=== PATIENT | female | born 1930 | race Caucasian/White ===

== ENCOUNTER 2018-01-27 16:35 | Inpatient (IN) | payer OTHER ==
[~2018-01-27] VITALS: Ht 149.9 cm; Wt 76.9 kg
[~2018-01-27 16:35] MED LIST: ANTIVERT 12.512.5 MG PO; ASPIRIN EC325 MG PO; CARDIZEM CD120 MG PO; CIPROFLOXACIN500 MG PO; COZAAR 50MG TAB50 MG PO; DULCOLAX5 MG PO; ENSURE1 PDR PO; FERROUS SULFAT325 M1 PO; FLAG500 PO; FOLIC ACID 1 MG PO; GOOD SENSE ASP325 MG PO; IMDUR30 MG PO; LEVOBUNOLOL HCL OPH; LOPRESSOR 12.12.5 MG PO; LOPRESSOR 25MG25 MG PO; LOSARTAN POTAS100 MG PO; LUMIGAN 2.5 ML2.5 M1 OPH; METHOTREXATE2.5 M1 PO; MSIR PO; MULTI VITAMINS1 TAB PO; NAPROXEN375 MG PO; NITROSTAT0.4 MG PO; PARAFON FORTE500 MG PO; PREDNISONE 1 MG1 MG PO; PROCARDIA XL30 MG PO; PROSTAT PO; STOOL SOFTENER PO; VITAMIN D1000 IU PO; WELCHOL 625 MG625 MG PO; WOMEN'S DAILY F1 TAB PO; [UNRECOGNIZED DRUG - OTHER] PO
[2018-01-27 17:17] LABS: ABSOLUTE BASOPHIL COUNT 0.1 /CUMM (0.0-0.2); ABSOLUTE EOSINOPHIL COUNT 0.1 /CUMM (0.0-0.7); ABSOLUTE GRANULOCYTE CT 6.7 /CUMM (1.4-6.5); ABSOLUTE LYMPH COUNT 1.6 /CUMM (1.2-3.4); ABSOLUTE MONOCYTE COUNT 0.8 /CUMM (0.10-0.60); BASOPHIL % 0.7 % (0.0-2.0); EOSINOPHIL % 0.6 % (0-5); GRANULOCYTE % 72.4 % (42.2-75.2); MEAN CORPUSCULAR HGB CONC 33.6 G/DL (33.0-37.0); MEAN CORPUSCULAR VOLUME 92.4 FL (81.0-99.0); MEAN PLATELET VOLUME 7.8 FL (7.4-10.4); PLATELET COUNT 336 /CUMM (130-400); RBC DISTRIBUTION WIDTH 13.9 % (11.5-14.5); RED BLOOD CELL CT 4.55 /CUMM (4.20-5.40); WHITE BLOOD CELL COUNT 9.3 /CUMM (4.8-10.8)
[2018-01-27 17:22] LABS: PT 11.2 SEC (9.4-12.5); PTT 29 SEC (25-37)
--- NOTE | 2018-01-27 17:39 | RADIOLOGY REPORT ---
EXAMINATION: CHEST 1 VIEW CLINICAL INFORMATION: Atrial fibrillation. COMPARISON: 06/23/2015. TECHNIQUE: An AP view of the chest is provided. FINDINGS: The cardiac silhouette is prominent, though stable. The mediastinal and hilar contours are unremarkable. There are neither pleural effusions nor pneumothoraces. There are no consolidations. The osseous structures are stable. IMPRESSION: No evidence for acute disease. Stable chest radiograph.
--- NOTE | 2018-01-27 17:43 | ED CARDIAC/CP/PALPITATIONS ---
History of Present Illness General Chief Complaint: General Adult Stated Complaint: SIB DR CHOUDHURY ABD EKG Source: patient, family Exam Limitations: no limitations Allergies Coded Allergies: STATINS (Severe, RASH, HIVES 12/22/12) Penicillins (UNKNOWN 05/21/17) Sulfa (Sulfonamide Antibiotics) (UNKNOWN 05/21/17) adhesive tape (UNKNOWN 05/21/17) red dye (UNKNOWN 05/21/17) Reconcile Medications Aspirin (Aspirin*) 81 MG TAB.CHEW 1 TAB PO DAILY heart (Reported) Aspirin E.c. (Ecotrin) 325 MG TAB 81 MG PO DAILY HEART Bimatoprost (Lumigan 2.5 Ml) 2.5 ML DELMI 1 GTT OPH QPM GLAUCOMA (Reported) 0.5% Bisacodyl (Women's Laxative) 5 MG TABLET 2 TAB PO DAILY CONSTIPATION ( Reported) Bisacodyl (Dulcolax) 5 MG ECT 3 TAB PO DAILY CONSTIPATION (Reported) Casanthranol/Docusate Sodium (Stool Softener Plus Stimulant Laxative 30 MG-) 1 SGL SGL 3 TAB PO DAILY STOOL SOFTENER (Reported) Chlorzoxazone 500 MG TABLET 0.5 TAB PO TID muscle spasm (Reported) Chlorzoxazone (Parafon Forte Dsc) 500 MG TAB 1 TAB PO MUSCLE RELAXER ( Reported) Cholecalciferol (Vitamin D3) 1,000 IU TAB 1 TAB PO DAILY SUPPLEMENT (Reported ) Cholecalciferol (Vitamin D3) 1,000 UNIT TABLET 2 TAB PO DAILY SUPPLEMENT ( Reported) CIPROFLOXACIN HCL (Ciprofloxacin HCl) 500 MG TAB 500 MG PO BID INFECTION Colesevelam HCl (Welchol) 3.75 GRAM POWD.PACK 2 PAC PO DAILY HLD (Reported) mix with water, or juice Colesevelam Hydrochloride (Welchol) 625 MG TAB 1 TAB PO TID DIABETES ( Reported) Diltiazem HCl (Cartia Xt) 120 MG CAP.ER.24H 180 MG PO DAILY heart (Reported) Docusate Sodium (Stool Softener) 50 MG/5 ML LIQUID 50 MG PO DAILY CONSTIPATION (Reported) Ferrous Sulfate 325 MG TAB 325 MG PO BID SUPPLEMENT Fish Oil (The Very Finest Fish Oil [place]-3) 1,600 MG/5 ML OIL 1 CAP PO DIALY SUPPLEMENT (Reported) Folic Acid 1 MG TAB 1 TAB PO DAILY SUPPLEMENT (Reported) Folic Acid 1 MG TABLET 1 TAB PO DAILY SUPPLEMENT (Reported) Isosorbide Mononitrate (Imdur) [address] 120 MG PO DAILY ANGINA (Reported) Isosorbide Mononitrate (Isosorbide Mononitrate ER) 120 MG TAB.ER.24H 1 TAB PO DAILY Heart (Reported) LACTOSE-REDUCED FOOD (Ensure Powder) 1 PDR PDR 1 PAC PO DAILY SUPPLEMENT Lactulose 10 GRAM/15 ML SOLUTION 30 ML PO BID PRN CONSTIPATION (Reported) Latanoprost 0.005 % DROPS 1 GTT OPH QPM GLAUCOMA (Reported) LEVOBUNOLOL HCL (Levobunolol HCl 10 Ml) 10 ML DELMI 1 GTT OPH DAILY GLAUCOMA ( Reported) 0.5% DOSE Levobunolol HCl (Betagan) 0.5 % DROPS 1 DROP OPH QAM GLAUCOMA (Reported) Losartan (Cozaar) 100 MG TABLET 1 TAB PO DAILY HTN (Reported) Losartan (Cozaar) 50 MG TAB 1 TAB PO DAILY BLOOD PRESSURE Meclizine (Antivert) 12.5 MG TAB 2 TAB PO PRN NAUSEA (Reported) Meclizine HCl 25 MG TABLET 1 TAB PO TIDPRN VERTIGO (Reported) METHOTREXATE SODIUM (Methotrexate) 2.5 MG TAB PSORIASIS ARTHRITIS (Reported) UNKNOWN DOSE, 3 TABS Metoprolol Succ XL (Toprol Xl) 50 MG TAB 1 TAB PO DAILY HTN (Reported) Metoprolol Tartrate (Lopressor) 25 MG TAB 1 TAB PO BID BLOOD PRESSURE, HEART RATE Metronidazole (Flagyl) 500 MG TAB 500 MG PO TID Ischemic colitis [MSIR] 7.5 MG PO BID PRN PAIN SCALE 7-10 Multivitamin (One Daily Multivitamin) 1 TAB TAB 1 TAB PO DAILY SUPPLEMENT ( Reported) COMPLETE SENIOR VITAMIN Nifedipine (Procardia XL) [address] 30 MG PO DAILY HEART, ESOPHAGEAL DYSMOTILITY Nitroglycerin (Nitrostat) 0.4 MG TAB.SUBL 1 TAB SL AD PRN ANGINA (Reported) 1st sign of attack; may repeat every 5 minutes until relief; if pain persists after 3 tablets in 15 minutes, prompt medical att Nitroglycerin (Nitrostat) 0.4 MG TAB 1 TAB PO PRN PRN CHEST PAIN (Reported) Polyethylene Glycol 3350 (Miralax) 17 GRAM POWD.PACK 1 PAC PO DAILY CONSTIPATION (Reported) dissolve in water Prednisone 1 MG TAB 1 TAB PO TID ARTHRITIS (Reported) Prednisone 1 MG TABLET 3 TAB PO DAILY RA (Reported) Ranitidine (Ranitidine HCl) 150 MG TABLET 1 TAB PO BID GERD (Reported) Sennosides (Senna) 8.6 MG TABLET 2 TAB PO BID CONSTIPATION (Reported) Triage Note: 88 YO FEMALE TO [facility] FROM [facility] OFF[facility] FOR EVAL OF ABNORMAL EKG. PT REPORTS SHE WAS THERE FOR A CHECK UP AND "HE LISTENED TO MY HEART AND SAID IT WAS GOING FAST" DENIES PALPITATIONS, DENIES CHEST PAIN. REPORTS SHE HAS BEEN FEELING WEAK THIS PAST WEEK AND FEELS A LITTLE SHAKEY. EKG IN PROGRESS. Triage Nurses Notes Reviewed? yes Onset: Gradual Duration: week(s): Timing: recent history Quality/Severity: moderate HPI: 88yo female with hx of CAD, HTN, COPD, DM sent in by her primary care doctor for evaluation of rapid heart beat. Patient states that she saw her primary care doctor for routine checkup today and was informed of her rapid heartbeat and physical exam. Patient states that for the past 3 weeks she has felt generalized weakness, shakiness, and malaise. She also reports abdominal distention which she states has been chronic however may have worsened recently. Patient denies chest pain, dyspnea, syncope, fevers. (Tram AGUILERA,Mirna Cárdenas) Vital Signs & Intake/Output Vital Signs & Intake/Output Vital Signs Date Time Temp Pulse Resp B/P B/P Pulse O2 O2 Flow FiO2 Mean Ox Delivery Rate 01/27 2121 97.9 108 18 138/72 96 Room Air 01/27 1838 98.2 135 20 112/79 97 Room Air Room Air 01/27 183 98.5 135 20 121/85 01/27 1735 98 Room Air Room Air 01/27 1734 98.5 135 20 121/85 97 Room Air Room Air 01/27 1646 98.1 129 18 135/87 95 Room Air (Mallory FOX,Josh Nur) Past History Travel History Traveled to [place] past 21 day No Medical History Any Pertinent Medical History? 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 FATHER, , Age 76; Cause: Bone cancer. Hx Contributory? No (Mirna Love) Review of Systems Review of Systems Constitutional: Reports: see HPI. EENTM: Reports: no symptoms. Respiratory: Reports: no symptoms. Cardiovascular: Reports: see HPI. GI: Reports: see HPI. Genitourinary: Reports: no symptoms. Musculoskeletal: Reports: no symptoms. Skin: Reports: no symptoms. Neurological/Psychological: Reports: no symptoms. Hematologic/Endocrine: Reports: no symptoms. Immunologic/Allergic: Reports: no symptoms. All Other Systems: Reviewed and Negative (Mirna Love) Physical Exam Physical Exam General Appearance: well developed/nourished, no apparent distress, alert, awake Head: atraumatic, normal appearance Eyes: Bilateral: normal appearance. Ears, Nose, Throat: hearing grossly normal Neck: normal inspection, supple, full range of motion Respiratory: normal breath sounds, no respiratory distress, lungs clear Cardiovascular: tachycardia, irregularly irregular Peripheral Pulses: 2+ radial (R), 2+ radial (L) Gastrointestinal: normal bowel sounds, no organomegaly, moderate distention with mild generalized tenderness Rectal: heme negative stool, external hemorrhoids Back: normal inspection, normal range of motion Extremities: normal inspection Neurologic/Psych: awake, alert, oriented x 3 Skin: intact, normal color, warm/dry Core Measures ACS in differential dx? Yes CVA/TIA Diagnosis No Sepsis Present: No Sepsis Focused Exam Completed? No (Mirna Love) Progress Differential Diagnosis: AMI, atrial fibrillation, CHF/pulm edema, hyperkalemia, PSVT, pulmonary embolism, unstable angina Diagnostic Imaging: Viewed by Me: Radiology Read. Discussed w/RAD: Radiology Read. CXR Impression: PATIENT: WILFREDO CABRERA PRESENT AGE : 88 PATIENT ACCOUNT NO: [id number] : [birth year] LOCATION: ER ORDERING PHYSICIAN: Stanley AGUILERA SERVICE DATE: 01/27/18 EXAM TYPE: RAD - XRY-PORTABLE CHEST XRAY EXAMINATION: CHEST 1 VIEW CLINICAL INFORMATION: Atrial fibrillation. COMPARISON: 06/23/2015. TECHNIQUE: An AP view of the chest is provided. FINDINGS: The cardiac silhouette is prominent, though stable. The mediastinal and hilar contours are unremarkable. There are neither pleural effusions nor pneumothoraces. There are no consolidations. The osseous structures are stable. IMPRESSION: No evidence for acute disease. Stable chest radiograph. DICTATED BY: Jesus Velasco MD DATE/TIME DICTATED:01/27/181732 STANDARD MACHINE STITCHER:IVY DATE/TIME TRANSCRIBED:01/27/181732 CONFIDENTIAL, DO NOT COPY WITHOUT APPROPRIATE AUTHORIZATION. <Electronically signed in Other Vendor System> SIGNED BY: Jesus Velasco MD 01/27/181738 Initial ED EKG: rapid atrial fibrillation @ 145bpm Prior EKG: changed (06/29/15) (Tram AGUILERA,Mirna Cárdenas) Plan of Care: Orders Procedure Date/time Status Heart Healthy Diet 01/28 B Active PT Evaluate & Treat 01/28 0700 Active ECHOCARDIOGRAM 01/28 0700 Active TROPONIN LEVEL 01/28 0500 Active CBC WITHOUT DIFFERENTIAL 01/28 0500 Active EKG 01/28 0500 Active Clear Liquid Diet 01/27 D Complete TROPONIN LEVEL 01/27 2300 Active EKG 01/27 2300 Active Pathway - chart 01/27 2154 Active Code Status 01/27 215 Active ECHOCARDIOGRAM 01/27 2148 Active Patient Data 01/27 2054 Active Patient Data 01/27 2034 Active Add-on Test (ER Only) 01/28 2008 Active Admit to inpatient 01/27 2002 Active Intake & Output 01/27 1734 Active MAGNESIUM 01/27 1700 Complete THYROID STIMULATING HORMONE 01/27 1654 Complete TROPONIN LEVEL 01/27 1654 Complete PARTIAL THROMBOPLASTIN TIME 01/27 1654 Complete PROTHROMBIN TIME 01/27 1654 Complete COMPREHENSIVE METABOLIC PANEL 01/27 1654 Complete CBC WITHOUT DIFFERENTIAL 01/27 1654 Complete EKG 01/27 1638 Active PT Evaluate & Treat 01/27 UNK Active Pathway - chart 01/27 UNK Active House Staff 01/27 UNK Active VTE Mechanical Prophylaxis 01/27 UNK Active Vital Signs 01/[address] THOR SPINE WO IV CONTRAST 01/[address] ABD & PELVIS W IV CONTRAST 01/27 UNK Active Current Medications Sig/Lb Start time Last Medication Dose Stop Time Status Admin Latanoprost 1 GTT QPM 01/28 2100 AC (Xalatan) Aspirin 81 MG DAILY 01/28 900 AC (Aspirin) Bisacodyl 10 MG DAILY 01/28 900 UNVr (Dulcolax) Cholecalciferol 2,000 IU DAILY 01/28 900 UNVr (Vitamin D) Colesevelam HCl 625 MG DAILY 01/28 900 AC (Welchol 625 MG) Diltiazem HCl 180 MG DAILY 01/28 900 AC (Cardizem CD) Docusate Sodium 50 MG DAILY 01/28 900 AC (Colace) Folic Acid 1 MG DAILY 01/28 900 AC (Folic Acid) Isosorbide 120 MG DAILY 01/28 900 AC Mononitrate (Imdur) Levobunolol HCl 1 GTT QAM 01/28 900 UNVr (Betagan) Losartan Potassium 100 MG DAILY 01/28 900 AC (Cozaar) Metoprolol Succinate 50 MG DAILY 01/28 900 AC (Toprol Xl) Polyethylene Glycol 17 GM DAILY 01/28 900 AC (Miralax) Prednisone 3 MG DAILY 01/28 900 AC Meclizine HCl 25 MG TID PRN 01/27 2230 AC (Antivert) Nitroglycerin 0.4 MG .[AD] PRN 01/27 2230 UNVr (Nitrostat) Senna/Docusate Sodium 1 TAB BID PRN 01/27 2230 AC (Senokot S) Lactulose 30 GM TID PRN 01/27 2215 AC (Enulose 20GM/30ML) Non-Formulary 0 SEE ADMIN CRITERIA 01/27 2215 UNVr Medication (NON FORMULARY) Verapamil HCl 50 MG Q10H 01/27 2200 AC (Calan) Sodium Chloride 80 ML (Normal Saline 0.9%) Pantoprazole Sodium 40 MG BID 01/28 2148 AC (Protonix) Heparin Sodium 25,000 UNIT Q24H 01/27 2100 AC (Porcine) (Heparin) Sodium Chloride 500 ML Laboratory Tests 01/27/18 1700: Anion Gap 8, Estimated GFR > 60, BUN/Creatinine Ratio 21.3, Glucose 145 H, Calcium 9.1, Magnesium 1.5 L, Total Bilirubin 0.5, AST 33, ALT 41, Alkaline Phosphatase 83, Troponin I 0.02, Total Protein 6.6, Albumin 3.6, Globulin 3.0, Albumin/Globulin Ratio 1.2, TSH 0.913, PT 11.2, INR 1.03, APTT 29, CBC w Diff NO MAN DIFF REQ, RBC 4.55, MCV 92.4, MCH 31.0, MCHC 33.6, RDW 13.9, MPV 7.8, Gran % 72.4, Lymphocytes % 17.7 L, Monocytes % 8.6, Eosinophils % 0.6, Basophils % 0.7 , Absolute Granulocytes 6.7 H, Absolute Lymphocytes 1.6, Absolute Monocytes 0.8 H, Absolute Eosinophils 0.1, Absolute Basophils 0.1 Dr. Tejada present to see and evaluate the patient. Cardizem is not available at this time. Will initiate lopressor instead. 1806 - Spoke with Dr. Choudhury regarding this patient. He recommends waiting 20-30 minutes following lopressor. If this is not effective he recommends Verapimil 2.5mg bolus with drip that can be titrated. He will consult the patient tomorrow. Patient to be admitted to telemetry for rapid atrial fibrillation. Dr. Tejada spoke with Dr. Abraham regarding ICU admission. Dr. Choudhury recommends IV heparinization. (Tram AGUILERA,Mirna Cárdenas) Comments: 01/27/2018 8:03:00 PM I have discussed diuresis case with Dr. Abraham. (Mallory FOX,Josh Nur) Departure Departure Disposition: STILL A PATIENT Condition: Stable Clinical Impression Primary Impression: Rapid atrial fibrillation Referrals: Raul Braun MD (PCP/Family) Departure Forms: Customer Survey General Discharge Information Admission Note Spoke With: Shawn FOX,Greta Documentation of Exam: Documentation of any treatments & extenuating circumstances including Concerns Regarding Discharge (functional status, medication knowledge or non-compliance, living conditions, etc.) that warrant an admission rather than observation: [new onset rapid atrial fibrillation requiring IV cardiac rate control, IV heparin, telemetry monitoring, cardiology consult, repeat labs, repeat EKGs, premature discharge medically unsafe] (Mirna Love) PA/OPERATIONS ENGINEER Co-Sign Statement Statement: ED Attending supervision documentation- [X] I saw and evaluated the patient. I have also reviewed all the pertinent lab results and diagnostic results. I agree with the findings and the plan of care as documented in the PA's/OPERATIONS ENGINEER's documentation. Patient presents for evaluation of generalized weakness and heart palpitations for the past 2-3 weeks. Physical examination reveals a rapid irregular heart rate. [] I have reviewed the ED Record and agree with the PA's/OPERATIONS ENGINEER's documentation. [] Additions or exceptions (if any) to the PAs/OPERATIONS ENGINEER's note and plan are summarized below: [] (Mallory FOX,Josh Nur) Critical Care Note Critical Care Note Critical Care Time: 30-74 min (Josh Tejada MD)
--- NOTE | 2018-01-27 20:08 | History & Physical ---
Nirav Pike MD 01/27/182007: General Information and HPI History of Present Illness: Ms. Gonzales is an 88-year-old female with past medical history of glaucoma, psoriatic arthritis, coronary artery disease, hypertension, hyperlipidemia, bladder suspension procedure, osteoporosis, diabetes mellitus, COPD, Mnire's disease, duodenal ulcers, and HFpEF who was sent in by her doctor for tachycardia. Please note the patient is a poor historian. The patient says that she was at her primary care doctor's office today for regular follow-up when he noticed that her heart rate was high. The primary care doctor called Dr. Cr and recommended taking an EKG. EKG showed atrial fibrillation with rapid ventricular rate and she was instructed to come to the emergency room for further evaluation. The patient notes that she has had palpitations about once every 2 weeks for the past 3 months. She has not noticed any association with the palpitations. She further notes that she has had left-sided chest pain about once every 2 weeks as well relieved by nitro mostly occurring at rest. She further reports chronic back pain, abdominal distention, nausea, black stools intermittently, and potentially also using NSAIDs despite being told not to. She says that she can walk across a parking lot and up 1 flight of stairs before getting tired. She denies any dysuria or vomiting. She is a former smoker and denies alcohol or drug use. Allergies/Medications Allergies: Coded Allergies: STATINS (Severe, RASH, HIVES 12/22/12) Penicillins (UNKNOWN 05/21/17) Sulfa (Sulfonamide Antibiotics) (UNKNOWN 05/21/17) adhesive tape (UNKNOWN 05/21/17) red dye (UNKNOWN 05/21/17) Past History Travel History Traveled to [place] past 21 day No Medical History Neurological: Meniere's EENT: glaucoma, PSORIASIS Cardiovascular: CAD, hypertension, HYPERCHOLESTEROLEMIA Respiratory: COPD Gastrointestinal: HEMORRHOIDS Hepatic: NONE Renal: BLADDER SUSPENTION Musculoskeletal: osteoporosis, L WRIST FX OSTEOPOROSIS PSORIATIC ARTHRITIS Psychiatric: NONE Endocrine: diabetes Blood Disorders: NONE Cancer(s): NONE 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 FATHER, , Age 76; Cause: Bone cancer. Psychosocial History Who Do You Live With? self Services at Home: None Primary Language: Italian Living Will? unknown Power of Supervisor Stitching Department/HCP? unknown Functional Ability ADLs Independent: dressing, eating, toileting, bathing. Ambulation: independent IADLs Needs Assist: housework, food prep, telephone, transportation. Unknown: shopping, finances, medication admin. Review of Systems Review of Systems Constitutional: Reports: no symptoms. EENTM: Reports: no symptoms. Cardiovascular: Reports: see HPI. Respiratory: Reports: no symptoms. GI: Reports: see HPI. Genitourinary: Reports: no symptoms. Musculoskeletal: Reports: no symptoms. Skin: Reports: no symptoms. Neurological/Psychological: Reports: no symptoms. Hematologic/Endocrine: Reports: no symptoms. Immunologic/Allergic: Reports: no symptoms. All Other Systems: Reviewed and Negative Exam & Diagnostic Data Last 24 Hrs of Vital Signs/I&O Vital Signs Date Time Temp Pulse Resp B/P B/P Pulse O2 O2 Flow FiO2 Mean Ox Delivery Rate 01/271 97.9 108 18 138/72 96 Room Air 01/27 1838 98.2 135 20 112/79 97 Room Air Room Air 01/27 1837 98.5 135 20 121/85 01/27 1735 98 Room Air Room Air 01/27 1734 98.5 135 20 121/85 97 Room Air Room Air 01/27 1646 98.1 129 18 135/87 95 Room Air Physical Exam General Appearance Alert, Oriented X3, Cooperative, No Acute Distress Skin No Rashes, No Breakdown, No Significant Lesion HEENT Atraumatic, PERRLA, EOMI Cardiovascular tachy, irregularly irregular Lungs exp wheezing Abdomen distended with diffuse tenderness Neurological Normal Speech Extremities No Edema, Normal Pulses, No Tenderness/Swelling Last 24 Hrs of Labs/Juan: Laboratory Tests 01/27/18 1700: Anion Gap 8, Estimated GFR > 60, BUN/Creatinine Ratio 21.3, Glucose 145 H, Calcium 9.1, Magnesium 1.5 L, Total Bilirubin 0.5, AST 33, ALT 41, Alkaline Phosphatase 83, Troponin I 0.02, Total Protein 6.6, Albumin 3.6, Globulin 3.0, Albumin/Globulin Ratio 1.2, TSH 0.913, PT 11.2, INR 1.03, APTT 29, CBC w Diff NO MAN DIFF REQ, RBC 4.55, MCV 92.4, MCH 31.0, MCHC 33.6, RDW 13.9, MPV 7.8, Gran % 72.4, Lymphocytes % 17.7 L, Monocytes % 8.6, Eosinophils % 0.6, Basophils % 0.7 , Absolute Granulocytes 6.7 H, Absolute Lymphocytes 1.6, Absolute Monocytes 0.8 H, Absolute Eosinophils 0.1, Absolute Basophils 0.1 Assessment/Plan Assessment: Ms. Gonzales is an 88-year-old female with past medical history of glaucoma, psoriatic arthritis, coronary artery disease, hypertension, hyperlipidemia, bladder suspension procedure, osteoporosis, diabetes mellitus, COPD, Mnire's disease, duodenal ulcers, and HFpEF who was sent in by her doctor for tachycardia. On presentation, vital signs were T 98.1, HR 129, RR 18, BP 135/87, saturating 95% on room air. Laboratories were significant for normal CVC, sodium 134, glucose 145, negative LFTs. Chest x-ray was negative. Initial EKG showed rapid atrial fibrillation at 145bpm. She will be admitted to the intensive care unit and treated for the following problems: 1. Atrial fibrillation with rapid ventricular rate 2. Abdominal distention 3. Mild hyponatremia 4. Back pain #Atrial fibrillation with rapid ventricular rate: Patient presents with asymptomatic atrial fibrillation with rapid ventricular rate. BRODIE-VASC2 score is 7, 11.2% annual risk of stroke. We spoke to Dr. Cr and Dr. Pierre, both of whom are recommending anticoagulation at this time despite her history of GI bleed. -Start IV heparin -Verapamil drip -Cardiology consult -EKG and troponins 3 -TTE #Abdominal distention: Patient has abdominal distention with history of mesenteric ischemia and duodenal ulcers. She is followed by Dr. [place]. She has tenderness on exam and questionable history of melena. However her hemoglobin is normal and her guaiac was negative. It is possible that she is having recurrence of ischemia versus ileus versus SBO. -CT abdomen/pelvis with IV contrast -Clear liquid diet, n.p.o. after midnight -PPI -Gastroenterology consult #Back pain: Patient complaining of chronic back pain. She does have a history of osteoporosis. -CT thoracic spine -Cyclobenzaprine -physical therapy consult #Mild hyponatremia: Asymptomatic -IVF -CTM #Chronic medical problems: -Continue other home meds DVT ppx with heparin Heart healthy diet DNR/DNI As Ranked By This Provider Problem List: 1. Rapid atrial fibrillation Core Measures/Misc (05/18) Acute Coronary Syndrome ACS Diagnosis: No Congestive Heart Failure Congestive Heart Failure Diagnosis Yes Last Known EF % 65 Cerebrovascular Accident CVA/TIA Diagnosis: No VTE (View Protocol) VTE Risk Factors Age>40 No Mechanical VTE Prophylaxis d/t N/A MechProphylax Ordered No VTE Pharm Prophylaxis d/t NA PharmProphylax ordered Sepsis (View protocol) Sepsis Present: No If YES complete Sepsis Event Note If YES complete Sepsis Event Note Scottie Still 01/27/18 9034: General Information and HPI Allergies/Medications Home Med list Aspirin (Aspirin*) 81 MG TAB.CHEW 1 TAB PO DAILY heart (Reported) Bisacodyl (Women's Laxative) 5 MG TABLET 2 TAB PO DAILY CONSTIPATION ( Reported) Chlorzoxazone 500 MG TABLET 0.5 TAB PO TID muscle spasm (Reported) Cholecalciferol (Vitamin D3) 1,000 UNIT TABLET 2 TAB PO DAILY SUPPLEMENT ( Reported) Colesevelam HCl (Welchol) 3.75 GRAM POWD.PACK 2 PAC PO DAILY HLD (Reported) mix with water, or juice Diltiazem HCl (Cartia Xt) 120 MG CAP.ER.24H 180 MG PO DAILY heart (Reported) Docusate Sodium (Stool Softener) 50 MG/5 ML LIQUID 50 MG PO DAILY CONSTIPATION (Reported) Folic Acid 1 MG TABLET 1 TAB PO DAILY SUPPLEMENT (Reported) Isosorbide Mononitrate (Isosorbide Mononitrate ER) 120 MG TAB.ER.24H 1 TAB PO DAILY Heart (Reported) Lactulose 10 GRAM/15 ML SOLUTION 30 ML PO BID PRN CONSTIPATION (Reported) Latanoprost 0.005 % DROPS 1 GTT OPH QPM GLAUCOMA (Reported) Levobunolol HCl (Betagan) 0.5 % DROPS 1 DROP OPH QAM GLAUCOMA (Reported) Linagliptin (Tradjenta) 5 MG TABLET 1 TAB PO DAILY diabetes (Reported) Losartan (Cozaar) 100 MG TABLET 1 TAB PO DAILY HTN (Reported) Meclizine HCl 25 MG TABLET 1 TAB PO TIDPRN VERTIGO (Reported) Methotrexate 2.5 MG TABLET 3 TAB PO QW RA (Reported) Patient takes medication on Friday Metoprolol Succ XL (Toprol Xl) 50 MG TAB 1 TAB PO DAILY HTN (Reported) [MSIR] 7.5 MG PO BID PRN PAIN SCALE 7-10 Nitroglycerin (Nitrostat) 0.4 MG TAB.SUBL 1 TAB SL AD PRN ANGINA (Reported) 1st sign of attack; may repeat every 5 minutes until relief; if pain persists after 3 tablets in 15 minutes, prompt medical att Polyethylene Glycol 3350 (Miralax) 17 GRAM POWD.PACK 1 PAC PO DAILY CONSTIPATION (Reported) dissolve in water Prednisone 1 MG TABLET 3 TAB PO DAILY RA (Reported) Ranitidine (Ranitidine HCl) 150 MG TABLET 1 TAB PO BID GERD (Reported) Sennosides (Senna) 8.6 MG TABLET 2 TAB PO BID CONSTIPATION (Reported) Core Measures/Misc (05/18) Sepsis (View protocol) If YES complete Sepsis Event Note If YES complete Sepsis Event Note Resident Review Statement Resident Statement: examined this patient, discussed with transportation logistics internship, agreed with transportation logistics internship, discussed with family, reviewed EMR data (avail), reviewed images, amended to note Other Findings: Patient is 88-year-old female with past medical history of diabetes, coronary artery disease, COPD not on home oxygen, hypertension, rheumatoid arthritis, M nire's disease, psoriasis, hiatal hernia, glaucoma, abdominal adhehesion, hypercholesterolemia, hemorrhoids, status post 3 C-sections, status post hysterectomy, admitted last in Jun 2015 for mesenteric ischemia and GI bleeding, extensive upper GI Hx off NSAIDS due to bleeding but sometimes patient takes behind the curtain. She was referred in today by her processing clerk Dr. Cr after she was found to have atrial fibrillation during a routine visit to her primary care physician. Upon further questioning the patient reports that she has been having on and off palpitations for the past 3 months not very frequently occurring once every 2 weeks associated with shortness of breath and chest pain for which she has been taking her nitroglycerin with improvement. She is not sure if exertion tend to bring the palpitations as sometimes she gets it even without any exertion. On presentation to her PCP today she reports to be totally asymptomatic without any palpitation shortness of breath or chest pain. Patient at baseline has distended abdomen however she reports that for the past few weeks her abdominal distention has increased further to a degree that she had to cut her pants because were squeezing her too much. Patient reports history of dark stools and sometimes bright red blood per rectum she is known to have hemorrhoids and has severe constipation on multiple laxatives however continues to have bowel motion once every 3-4 days, sometimes the patient tries to force herself to have bowel movement sitting for a long time in the bathroom and while doing that she reports to see blood sometimes. This patient has chronic back pain apparently she reports to has collapse of her vertebra for many years she was on NSAIDs which she reports to work very well however they were stopped because of GI bleeding. Currently she is not following up with her pain specialist but also volunteers that opiates make her very sick. She has not recently experienced any incontinence or lower limb weakness or other acute neurological manifestations. On presentation the patient was tachycardic heart rate of 129 afebrile at 98.1 respiration of 18 blood pressure 135/87 and was saturating 95% on room air Physical examination: Patient seated comfortably on the bed not in any acute distress wincing whenever she moves around due to back pain daughter and granddaughter in the room she is a alert and oriented to time place and person very pleasant lady articulating herself very clearly without any challenges. She has an old bruise on the left upper limb just above the elbow anteriorly. CVS: Irregularly irregular normal S1-S2 no murmurs Chest: Clear lungs bilaterally Abdomen: Globally distended moving with respiration, no rebound tenderness but there is generalized tenderness more prominent on the left hypochondrium and left iliac region. Due to tenderness with could not appreciate fluid thrill however there was no masses palpable on superficial palpation. normal bowel sounds Extremities no edema, cyanosis or clubbing Labs: Negative troponin 0.02, normal H&H H&H 14.1 and 42.0, INR of 1.04, guaiac test is negative EKG: Atrial fibrillation with normal axis no ST-T wave changes QTC of 485 Imaging: CT abdominal pelvis with IV contrast: 0.8 cm hyperattenuating lesion in the left lobe of the liver. Prior MRI was not tailored to evaluate this area. Prior CTs without contrast demonstrate this finding. Assessment and plan This is an 88 years old lady with past medical history of hypertension coronary artery disease, GI bleeding in the past who is presenting with new onset atrial fibrillation but which has been there for the past 3 months intermittently at least once every 2 weeks she is also having abdominal distention which has been there for a while but recently increasing in size significantly. This patient has [id number] VASC score of 6 (due to being female with hypertension and diabetes mellitus vascular disease and about 75 years) with risk of stroke of 9.8% per year. Given that she had negative guaiac we discussed with GI and agreed to start the patient on heparin with close monitoring of CBC. Problem list A. fib with rapid RVR Abdominal distention History of GI bleeding Chronic back pain Hypertension Rheumatoid arthritis We will admit the patient to the intensive care unit Vital signs every one hour Start the patient on IV verapamil drip and titrate for heart rate control Troponin and EKG 3 sets Echocardiogram Check TSH and a free T4 Abdominal pelvic CT scan with IV contrast Thoracic spine CT scan Physical therapy evaluation We'll keep the patient on IV atenolol for moderate to severe back pain Continue home medication for rheumatoid arthritis methotrexate and prednisone Hypertension meds: Metoprolol XL 50 mg, Diltiazem 180 mg, losartan 100 mg Continue home dose of laxatives: MiraLAX, senna, Dulcolax and lactulose when necessary Patient is getting heparin drip that will also cover for DVT She is DNI/DNR Shawn FOX, [facility] 01/28/18 0002: Core Measures/Misc (05/18) Sepsis (View protocol) If YES complete Sepsis Event Note If YES complete Sepsis Event Note Attending MD Review Statement Attending Statement Attending MD Statement: examined this patient, discuss w/resident/PA/DIRECTOR OF BANDS, agreed w/resident/PA/DIRECTOR OF BANDS, discussed with family, reviewed images, amended to note Attending Assessment/Plan: 88 yo F with h/o T2DM, CAD, spinal stenosis, COPD, psoriatic arthritis on methotrexate and prednisone, last admitted to [facility] (2014) diagnosed with chronic mesenteric ischemia and upper GI bleed with EGD s/o clean based duodenal ulcers, is sent in by Dr. Cr for an abnormal EKG. Patient was at her PCP visit today, was noted to be tachycardic. EKG was done which showed Afib. Patient was sent to Dr. Cr's office from where she came to the ER. Patient reports having intermittent palpitations over past 3 weeks. She also has substernal chest discomfort that resolves with nitro. Patient has been overdue for a stress test. On further questioning, patient reports that her abdomen has been increasingly distended and she has been having intermittent dark stools. She also has hemorrhoids and has noted BRBPR. She remains constipated and tends to strain causing hemorrhoidal bleeds. She also has chronic back pain from spinal stenosis , and tends to use full dose aspirin to help with the pain. She was taking naproxen many years ago but not anymore. She also reports recurrent heartburn for which she uses tums. Patient follows with Dr. 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 Patient was advised to follow up with Vascular but she has not. Upon ER arrival, she was noted to be in rapid Afib, given IV metoprolol without effect. Verapamil drip and IV heparin was started. Vitals: afebrile, HR 100-135, BP 140/86, sats 94% RA. Exam: AAO, in no distress, mucosa dry, Neck supple, Chest b/l clear, Heart S1S2 irregularly irregular, systolic murmur+, Abd soft, distended, BS+, left sided tenderness on exam. LE no edema. Rectal exam: heme negative. Labs: CBC normal. Na 134, glucose 145, Mag 1.5, LFTs normal, trop negative. CXR: no acute disease. CT abd/pelvis and thoracic spine no acute abnormality, 0.8 cm hyperattenuating lesion in left lobe of liver noted in previous CT. Spine no acute fractures. EKG: Afib with ventricular rate of 140's. Echo (2015): EF 65%, stage 2 diastolic dysfunction. Assessment and plan: 1. New onset atrial fibrillation with rapid ventricular response 2. History of CAD 3. Chronic mesenteric ischemia 4. Abdominal distension, heartburn and melena 5. Recurrent heartburn 6. History of upper GI bleed 7. Psoriatic arthritis on chronic prednisone - Admit to ICU - Vitals Q 1 hour - IV verapamil drip to titrate based on HR - IV heparin initiated after discussion with cardiology given high CHADVASc score - We also discussed with GI about need for IV heparin, given risk vs benefit AC was initiated - Serial EKG and troponin - Obtain echocardiogram - Check TSH, free T4 - Cardio consult Dr. Cr - CRCU consult - CT abd/pelvis is unremarkable - Serial abdomen exam - Continue PPI and clear liquid diet - Gentle hydration - Type and crossmatch - CBC twice daily while on heparin - Watch for bleeding or anemia - GI consult - probable outpatient EGD and colonoscopy, also to comment on the liver lesion - Pain management - PT eval - Check vit D levels - Continue cardizem, metoprolol, prednisone, losartan. - Diabetes management DVT ppx IV heparin. DNR/I. TTS > 55 mins
[2018-01-27] MEDS ORDERED: ASPIRIN81 M4 PO (20:31)
[2018-01-27] MEDS ORDERED: DILTIAZEM 24HR180 MG PO (20:32)
[2018-01-27] MEDS ORDERED: TOPROL XL50 M1 PO (20:33)
[2018-01-27] MEDS ORDERED: COZAAR100 M1 PO (20:33)
[2018-01-27] MEDS ORDERED: ISOSORBIDE MON120 M1 PO (20:34)
[2018-01-27] MEDS ORDERED: WELCHOL3.75 GM PO (20:36)
--- NOTE | 2018-01-27 21:31 | Admission Certification ---
Admission Certification Certification Statement - As attending physician, I certify that at the time of - admission, based on clinical presentation, severity of - symptoms, need for further diagnostic testing and - therapeutic interventions, and risk of adverse outcomes - without in-hospital treatment, in my clinical assessment, - this patient requires an acute hospital stay for a minimum - of two nights or longer. I have also considered psychsocial - factors such as support system, advanced age, financial - issues, cognitive issues, and failed out-patient treatments, - past re-admission history, safety of patient, and lack of - compliance as applicable. Specific rationale supporting this admission is: New onset atrial fibrillation
[2018-01-27] MEDS ORDERED: PREDNISONE1 MG PO (21:56)
[2018-01-27] MEDS ORDERED: RANITIDINE HCL150 MG PO (21:57)
[2018-01-27] MEDS ORDERED: SENNA8.6 M3 PO (21:57)
[2018-01-27] MEDS ORDERED: FOLIC ACID1 M1 PO (21:57)
[2018-01-27] MEDS ORDERED: VITAMIN D31000 UNI2 PO (21:58)
[2018-01-27] MEDS ORDERED: MIRALAX17 G1 PO (21:58)
[2018-01-27] MEDS ORDERED: STOOL SOFT50 MG/5 ML PO (21:59)
[2018-01-27] MEDS ORDERED: WOMEN'S LAXATIVE5 M1 PO (22:00)
[2018-01-27] MEDS ORDERED: BETAGAN10 ML OPH (22:01)
[2018-01-27] MEDS ORDERED: LATANOPROST2.5 ML OPH (22:02)
[2018-01-27] MEDS ORDERED: MECLIZINE HCL25 MG PO (22:03)
[2018-01-27] MEDS ORDERED: NITROSTAT0.4 M1 SL (22:05)
[2018-01-27] MEDS ORDERED: CHLORZOXAZONE500 M1 PO (22:05)
[2018-01-27] MEDS ORDERED: LACTULOSE10 GM/153 PO (22:06)
[2018-01-27] MEDS ORDERED: METHOTREXATE2.5 M2 PO (23:13)
--- NOTE | 2018-01-27 23:16 | CT SCAN REPORT ---
EXAMINATION: CT ABDOMEN AND PELVIS WITH CONTRAST CT THORACIC SPINE WITHOUT CONTRAST CLINICAL INFORMATION: Abdominal pain. Back pain. COMPARISON: Multiple priors, most recently 07/24/2016. TECHNIQUE: Multidetector volumetric imaging of the thoracic spine was initially performed without IV contrast. Multidetector volumetric imaging was then performed of the abdomen and pelvis following IV administration of 94 mL of Optiray 320 intravenous contrast. Sagittal and coronal reformatted images were obtained on the technologist's workstation. DLP: 1348 mGy-cm FINDINGS: LUNG BASES: There is subsegmental atelectasis at the lung bases. The remaining visualized portion of the lungs on the thoracic spine CT demonstrates minimal opacity in the right perihilar upper lobe. Bronchial wall thickening noted. The visualized cardiac structures are unremarkable. LIVER, GALLBLADDER, AND BILIARY TREE: The liver is normal in size, shape, and attenuation. There is a 0.8 cm hyperattenuating lesion in segment 2 of the liver. No additional hepatic lesion or biliary ductal dilatation is present. The gallbladder is unremarkable with no evidence of radiopaque gallstones, gallbladder wall thickening, or obvious pericholecystic inflammatory changes. PANCREAS: The pancreas is atrophic. Calcifications are present in the pancreatic parenchyma with irregular ductal dilatation. The appearance is suggestive of chronic pancreatitis. SPLEEN: Unremarkable. ADRENAL GLANDS: Unremarkable. KIDNEYS AND URETERS: The left kidney is somewhat atrophic. Bilateral renal cortical thinning. There are multiple hypoattenuating lesions seen in both kidneys. No hydronephrosis or nephrolithiasis. BLADDER: Unremarkable. GASTROINTESTINAL TRACT: The stomach is decompressed with no gross abnormality. The small bowel is normal in caliber. There is no obstruction. No colonic wall thickening or inflammatory change. Colonic diverticulosis noted without evidence of diverticulitis. No free air or free fluid. ABDOMINAL WALL: No significant hernia is appreciated. LYMPH NODES: Normal. VASCULAR: There is ectatic infrarenal abdominal aorta, measuring up to 2.5 cm AP. Moderate upper scrota calcifications are seen throughout the vasculature. PELVIC VISCERA: The uterus is not seen. No adnexal mass. OSSEOUS STRUCTURES: Bilateral L5 pars defects are present with grade 2 anterolisthesis of L5 on S1. This is unchanged. There is a compression deformity of the L4 vertebral body which is also unchanged. Multilevel endplate osteophytes with facet arthropathy. Multilevel vacuum disc phenomenon. Chronic left superior and inferior pubic rami fractures are again noted. Alignment at the hips is maintained with mild degenerative changes present. THORACIC SPINE: Dedicated thoracic spine acquisition demonstrates no acute fracture or subluxation. Vertebral body height and alignment is maintained. The disc spaces are maintained. There are multilevel small endplate osteophytes with lateral bridging on the right noted at the lower thoracic spine. There is no bony narrowing of the spinal canal. There is no bony neuroforaminal narrowing. Healed posterior left 11th rib fracture noted. IMPRESSION: 1. No acute finding in the abdomen or pelvis. No inflammatory changes. 2. 0.8 cm hyperattenuating lesion in the left lobe of the liver. Prior MRI was not tailored to evaluate this area. Prior CTs without contrast demonstrate this finding. Prior contrast-enhanced CT is not available for comparison at this time. 3. No acute fracture or malalignment in the thoracic spine. Mild multilevel degenerative change. 4. Ectatic infrarenal abdominal aorta, unchanged.
[2018-01-28 01:30] VITALS: BP 140/86
[2018-01-28 06:33] LABS: ABSOLUTE BASOPHIL COUNT 0.1 /CUMM (0.0-0.2); ABSOLUTE EOSINOPHIL COUNT 0.1 /CUMM (0.0-0.7); ABSOLUTE GRANULOCYTE CT 4.7 /CUMM (1.4-6.5); ABSOLUTE MONOCYTE COUNT 0.8 /CUMM (0.10-0.60); BASOPHIL % 0.7 % (0.0-2.0); EOSINOPHIL % 1.2 % (0-5); GRANULOCYTE % 61.3 % (42.2-75.2); HEMATOCRIT 42.7 % (37-47); MEAN CORPUSCULAR HGB 31.1 PG (27.0-31.0); MEAN CORPUSCULAR HGB CONC 33.1 G/DL (33.0-37.0); MEAN PLATELET VOLUME 7.7 FL (7.4-10.4); PLATELET COUNT 281 /CUMM (130-400); RBC DISTRIBUTION WIDTH 13.6 % (11.5-14.5); RED BLOOD CELL CT 4.54 /CUMM (4.20-5.40); WHITE BLOOD CELL COUNT 7.7 /CUMM (4.8-10.8)
[2018-01-28 06:51] LABS: PTT > 120 SEC (25-37)
[2018-01-28 08:00] VITALS: BP 150/70
--- NOTE | 2018-01-28 08:03 | Cons- CRCU ---
Acosta OFX,[facility] 01/28/18 0803: General Information and HPI Consulting Request Date of Consult: 01/28/18 Requested By: Primary team History of Present Illness: 88-year-old female with past medical history of glaucoma, psoriatic arthritis, coronary artery disease, hypertension, hyperlipidemia, bladder suspension procedure, osteoporosis, diabetes mellitus, COPD, Mnire's disease, duodenal ulcers, and HFpEF who was sent in by her doctor for tachycardia. The patient says that she was at her primary care doctor's office today for regular follow- up when he noticed that her heart rate was high. The primary care doctor called Dr. Cr and recommended taking an EKG. EKG showed atrial fibrillation with rapid ventricular rate and she was instructed to come to the emergency room for further evaluation. Allergies/Medications Allergies: Coded Allergies: STATINS (Severe, RASH, HIVES 12/22/12) Penicillins (UNKNOWN 05/21/17) Sulfa (Sulfonamide Antibiotics) (UNKNOWN 05/21/17) adhesive tape (UNKNOWN 05/21/17) red dye (UNKNOWN 05/21/17) Home Med List: Aspirin (Aspirin*) 81 MG TAB.CHEW 1 TAB PO DAILY heart (Reported) Bisacodyl (Women's Laxative) 5 MG TABLET 2 TAB PO DAILY CONSTIPATION ( Reported) Chlorzoxazone 500 MG TABLET 0.5 TAB PO TID muscle spasm (Reported) Cholecalciferol (Vitamin D3) 1,000 UNIT TABLET 2 TAB PO DAILY SUPPLEMENT ( Reported) Colesevelam HCl (Welchol) 3.75 GRAM POWD.PACK 2 PAC PO DAILY HLD (Reported) mix with water, or juice Diltiazem HCl (Cartia Xt) 120 MG CAP.ER.24H 180 MG PO DAILY heart (Reported) Docusate Sodium (Stool Softener) 50 MG/5 ML LIQUID 50 MG PO DAILY CONSTIPATION (Reported) Folic Acid 1 MG TABLET 1 TAB PO DAILY SUPPLEMENT (Reported) Isosorbide Mononitrate (Isosorbide Mononitrate ER) 120 MG TAB.ER.24H 1 TAB PO DAILY Heart (Reported) Lactulose 10 GRAM/15 ML SOLUTION 30 ML PO BID PRN CONSTIPATION (Reported) Latanoprost 0.005 % DROPS 1 GTT OPH QPM GLAUCOMA (Reported) Levobunolol HCl (Betagan) 0.5 % DROPS 1 DROP OPH QAM GLAUCOMA (Reported) Linagliptin (Tradjenta) 5 MG TABLET 1 TAB PO DAILY diabetes (Reported) Losartan (Cozaar) 100 MG TABLET 1 TAB PO DAILY HTN (Reported) Meclizine HCl 25 MG TABLET 1 TAB PO TIDPRN VERTIGO (Reported) Methotrexate 2.5 MG TABLET 3 TAB PO QW RA (Reported) Patient takes medication on Friday Metoprolol Succ XL (Toprol Xl) 50 MG TAB 1 TAB PO DAILY HTN (Reported) [MSIR] 7.5 MG PO BID PRN PAIN SCALE 7-10 Nitroglycerin (Nitrostat) 0.4 MG TAB.SUBL 1 TAB SL AD PRN ANGINA (Reported) 1st sign of attack; may repeat every 5 minutes until relief; if pain persists after 3 tablets in 15 minutes, prompt medical att Polyethylene Glycol 3350 (Miralax) 17 GRAM POWD.PACK 1 PAC PO DAILY CONSTIPATION (Reported) dissolve in water Prednisone 1 MG TABLET 3 TAB PO DAILY RA (Reported) Ranitidine (Ranitidine HCl) 150 MG TABLET 1 TAB PO BID GERD (Reported) Sennosides (Senna) 8.6 MG TABLET 2 TAB PO BID CONSTIPATION (Reported) Review of Systems Review of Systems Constitutional: Reports: see HPI. Past History Travel History Traveled to [place] past 21 day No Medical History Blood Transfusion Hx: Yes Neurological: Meniere's EENT: glaucoma, PSORIASIS Cardiovascular: CAD, hypertension, HYPERCHOLESTEROLEMIA Respiratory: COPD Gastrointestinal: HEMORRHOIDS ISCHEMIC BOWEL Hepatic: NONE Renal: BLADDER SUSPENTION Musculoskeletal: osteoporosis, L WRIST FX OSTEOPOROSIS PSORIATIC ARTHRITIS Psychiatric: NONE Endocrine: diabetes Blood Disorders: NONE Cancer(s): NONE MUSIC INTERNSHIP/Reproductive: WOMB SUSPENSION TUBAL LIGATION PARTIAL HYSTERECTOMY 3 C SECTIONS Surgical History Surgical History: , hysterectomy, tubal ligation Family History Relations & Conditions If Any: MOTHER, , Age 43; Cause: Myocardial infarct. FATHER, , Age 76; Cause: Bone cancer. Psychosocial History Where Do You Live? Home Who Do You Live With? self Services at Home: None Primary Language: Senegalese Smoking Status: Former Smoker Living Will? unknown Power of Drain Layer/HCP? unknown Functional Ability ADLs Independent: dressing, eating, toileting, bathing. Ambulation: independent IADLs Needs Assist: housework, food prep, telephone, transportation. Unknown: shopping, finances, medication admin. Exam & Diagnostic Data Last 24 Hrs of Vital Signs/I&O Vital Signs Date Time Temp Pulse Resp B/P B/P Pulse O2 O2 Flow FiO2 Mean Ox Delivery Rate 01/28 1035 150/70 01/28 1034 83 150/70 01/28 1034 150/70 01/28 0800 98 Room Air 01/28 0800 98.9 80 20 150/70 95 Room Air 01/28 0400 95 Room Air 01/28 0130 97.8 107 18 140/86 94 Room Air 01/28 0130 94 Room Air 01/27 2355 97.9 126 20 149/89 01/27 2355 97.9 126 20 149/89 01/27 2347 97.5 113 18 127/81 97 Room Air Room Air 01/27 2121 97.9 108 18 138/72 96 Room Air 01/27 1838 98.2 135 20 112/79 97 Room Air Room Air 01/27 1837 98.5 135 20 121/85 01/27 1735 98 Room Air Room Air 01/27 1734 98.5 135 20 121/85 97 Room Air Room Air 01/27 1646 98.1 129 18 135/87 95 Room Air Intake & Output 01/28 1600 01/28 0800 01/28 0000 Intake Total 726 Output Total 150 Balance 576 Intake, IV 726 Output, Urine 150 Patient 158 lb 150 lb Weight Weight Bed scale Reported by Patient Measurement Method Physical Exam General Appearance: no apparent distress, alert, awake Respiratory: normal breath sounds Cardiovascular: regular rate/rhythm, patient has converted to sinus rhythm Gastrointestinal: abdominal distention with normal bowel sounds. Diffuse abdominal pain to palpation. Extremities: 2+ radial pulses. Last 48 Hrs of Labs/Juan: Laboratory Tests 01/28/18 0545: Troponin I 0.02 01/28/18 0545: Anion Gap 9, Estimated GFR > 60, Glucose 139 H, Calcium 8.3 L, Phosphorus 3.0, Magnesium 2.5 H, Total Bilirubin 0.4, AST 27, ALT 41, Albumin 3.5, APTT > 120 * H, CBC w Diff NO MAN DIFF REQ, RBC 4.54, MCV 94.0, MCH 31.1 H, MCHC 33.1, RDW 13.6, MPV 7.7, Gran % 61.3, Lymphocytes % 26.4, Monocytes % 10.4 H, Eosinophils % 1.2, Basophils % 0.7, Absolute Granulocytes 4.7, Absolute Lymphocytes 2.0, Absolute Monocytes 0.8 H, Absolute Eosinophils 0.1, Absolute Basophils 0.1 01/28/18 0000: Troponin I 0.02 01/28/18 0000: Alpha Fetoprotein Pending 01/27/18 1700: Anion Gap 8, Estimated GFR > 60, BUN/Creatinine Ratio 21.3, Glucose 145 H, Calcium 9.1, Magnesium 1.5 L, Total Bilirubin 0.5, AST 33, ALT 41, Alkaline Phosphatase 83, Troponin I 0.02, Total Protein 6.6, Albumin 3.6, Globulin 3.0, Albumin/Globulin Ratio 1.2, TSH 0.913, PT 11.2, INR 1.03, APTT 29, CBC w Diff NO MAN DIFF REQ, RBC 4.55, MCV 92.4, MCH 31.0, MCHC 33.6, RDW 13.9, MPV 7.8, Gran % 72.4, Lymphocytes % 17.7 L, Monocytes % 8.6, Eosinophils % 0.6, Basophils % 0.7 , Absolute Granulocytes 6.7 H, Absolute Lymphocytes 1.6, Absolute Monocytes 0.8 H, Absolute Eosinophils 0.1, Absolute Basophils 0.1 Assessment/Plan CRCU Impression/Plan: A: 88-year-old female with past medical history of glaucoma, psoriatic arthritis, coronary artery disease, hypertension, hyperlipidemia, bladder suspension procedure, osteoporosis, diabetes mellitus, COPD, Mnire's disease, duodenal ulcers, GI bleed and HFpEF who was sent in by her doctor for tachycardia found to have new onset A. fib. P: #Atrial fibrillation with rapid ventricular rate: Initial EKG showed rapid atrial fibrillation at 145bpm. BRODIE-VASC2 score is 7, 11.2% annual risk of stroke. Cardiology recommended anticoagulation despite her history she had bleed and duodenal ulcers. Troponins 0.0 2X3. -Continue IV heparin -Verapamil drip stopped as heart rate was well controlled and patient returned to sinus rhythm -Continue by mouth diltiazem -Cardiology consult -TTE #Abdominal distention with a history of ?mesenteric ischemia Previous MRI revaeled celiac and SMA with approximately 50% luminal narrowing. It is unlikely that this is her pain is due to crohnic mesenteric ischemia. However it is possible that she may have acute mesenteric ischemia given her new onset afib however this is also unlikely. Her abd pain is more likely due to pseudo obstruction given the crohnic nature and absence non-critial occlusion of vessels. Current CT abdomen with IV contrast revealed no acute findings or thoracic spinal fractures. KUB negative for pneumoperitoneum. B12, TSH normal. Free t4 elevated. -will repeat folate tomorrow AM -The patient was advanced from nothing by mouth to clear liquid diet to regular diet -f/u Gastroenterology consult #Back pain Patient complaining of chronic back pain. She does have a history of osteoporosis. CT thoracic spine was negative for any acute cause. -cont cyclobenzaprine -physical therapy consult #Mild hyponatremia - resolved Initial sodium 134 Current 139 Mild hyponatremia resolved with IV fluids #Abnormal CT findings 1) 0.8 cm hyperattenuating lesion in the left lobe of the liver found on prior CTs. 2 Ectatic infrarenal abdominal aorta, unchanged. -outpatient monitoring #Chronic medical problems: Glaucoma, psoriatic arthritis, coronary artery disease, hypertension, hyperlipidemia, bladder suspension procedure, osteoporosis, diabetes mellitus, COPD, Mnire's disease, duodenal ulcers, GI bleed and HFpEF -Continue methotrexate, prednisone, vitamin D, colesevelam, metoprolol, losartan , levobunolol, latanoprost, imudur, nitroglycerin, folic acid, aspirin, meclizine, Colace, MiraLAX, senna, Dulcolax, lactulose -patient states she does want to take linagliptin any longer -will hold metformin and start novolog sliding scale DVT ppx with heparin Heart healthy diet DNR/DNI Problem List: 1. Rapid atrial fibrillation 2. Mesenteric ischemia Consult Acknowledgment - Thank you for your consult request. Kathe FOX,[facility] 01/28/18 7985: Assessment/Plan CRCU Other Findings/Comments: Seen and examined independently Full history as noted above Physical Exam General Appearance Alert, Oriented X3, Cooperative, No Acute Distress Skin No Rashes, No Breakdown, No Significant Lesion HEENT Atraumatic, PERRLA, EOMI Cardiovascular tachy, irregularly irregular Lungs exp wheezing Abdomen distended with diffuse tenderness Neurological Normal Speech Extremities No Edema, Normal Pulses, No Tenderness/Swelling Ms. Gonzales is an 88-year-old female with past medical history of glaucoma, psoriatic arthritis, coronary artery disease, hypertension, hyperlipidemia, bladder suspension procedure, osteoporosis, diabetes mellitus, COPD, Mnire's disease, duodenal ulcers, and HFpEF who was sent in by her doctor for tachycardia. Issues include New-onset atrial fibrillation with increased ventricular response. Patient is stable. Now he is here for verapamil infusion Abdominal distention yesterday now status post 2 bowel movements which seems to be much better per patient. Patient has had significant vascular disease in the abdominal arteries. No evidence of bowel ischemia at this time. She also does have a stable infrarenal aortic aneurysm. CT abdomen done unremarkable. Hypokalemia needs replacement History of psoriatic arthritis, on methotrexate and low-dose prednisone hence immunosuppressed Previous history of smoking, mild COPD, bladder neck suspension, no evidence of infection Prior history of GI bleed now on anticoagulation Chronic low back pain now stable RECOMMENDATION Continue rate control therapy Continue anticoagulation Abdominal discomfort seems to be better can advance diet Replace potassium Change to by mouth medications for rate control Out of bed to chair Continue bowel regimen Continue low-dose prednisone Watch blood pressure and she is on multiple medications Can be transferred to telemetry once she is better tts 36 mins Consult Acknowledgment - Thank you for your consult request.
--- NOTE | 2018-01-28 10:28 | Cons- Gastroenterology ---
General Information and HPI Consulting Request Date of Consult: 01/28/18 Requested By: Shawn FOX,Greta Reason for Consult: 1. Open 8 mm hypoattenuating liver lesion 2. Chronic use NSAIDs 3. Reported history of melena Source of Information: electronic medical record Exam Limitations: poor historian History of Present Illness: Ms. Gonzales is an 88 year old female with a Past Medical History of with past medical history of glaucoma, psoriatic arthritis for which she takes MTx, coronary artery disease, hypertension, hyperlipidemia, bladder suspension procedure, osteoporosis, diabetes mellitus, COPD, Mnire's disease, and duodenal ulcers with bleeding, and HFpEF. We are asked to see patient for evaluation of an 0.8 millimeter hypoattenuating lesion in the liver as well as abdominal distension and a report of melena. Patient was admitted after being found to be tachycardia by her PCP and on admission was in rapid A-Fib. CT scan of the abdomen and pelvis showed the following. FINDINGS: LUNG BASES: There is subsegmental atelectasis at the lung bases. The remaining visualized portion of the lungs on the thoracic spine CT demonstrates minimal opacity in the right perihilar upper lobe. Bronchial wall thickening noted. The visualized cardiac structures are unremarkable. LIVER, GALLBLADDER, AND BILIARY TREE: The liver is normal in size, shape, and attenuation. There is a 0.8 cm hyperattenuating lesion in segment 2 of the liver. No additional hepatic lesion or biliary ductal dilatation is present. The gallbladder is unremarkable with no evidence of radiopaque gallstones, gallbladder wall thickening, or obvious pericholecystic inflammatory changes. PANCREAS: The pancreas is atrophic. Calcifications are present in the pancreatic parenchyma with irregular ductal dilatation. The appearance is suggestive of chronic pancreatitis. SPLEEN: Unremarkable. ADRENAL GLANDS: Unremarkable. KIDNEYS AND URETERS: The left kidney is somewhat atrophic. Bilateral renal cortical thinning. There are multiple hypoattenuating lesions seen in both kidneys. No hydronephrosis or nephrolithiasis. BLADDER: Unremarkable. GASTROINTESTINAL TRACT: The stomach is decompressed with no gross abnormality. The small bowel is normal in caliber. There is no obstruction. No colonic wall thickening or inflammatory change. Colonic diverticulosis noted without evidence of diverticulitis. No free air or free fluid. ABDOMINAL WALL: No significant hernia is appreciated. LYMPH NODES: Normal. VASCULAR: There is ectatic infrarenal abdominal aorta, measuring up to 2.5 cm AP. Moderate upper scrota calcifications are seen throughout the vasculature. PELVIC VISCERA: The uterus is not seen. No adnexal mass. OSSEOUS STRUCTURES: Bilateral L5 pars defects are present with grade 2 anterolisthesis of L5 on S1. This is unchanged. There is a compression deformity of the L4 vertebral body which is also unchanged. Multilevel endplate osteophytes with facet arthropathy. Multilevel vacuum disc phenomenon. Chronic left superior and inferior pubic rami fractures are again noted. Alignment at the hips is maintained with mild degenerative changes present. THORACIC SPINE: Dedicated thoracic spine acquisition demonstrates no acute fracture or subluxation. Vertebral body height and alignment is maintained. The disc spaces are maintained. There are multilevel small endplate osteophytes with lateral bridging on the right noted at the lower thoracic spine. There is no bony narrowing of the spinal canal. There is no bony neuroforaminal narrowing. Healed posterior left 11th rib fracture noted. IMPRESSION: 1. No acute finding in the abdomen or pelvis. No inflammatory changes. 2. 0.8 cm hyperattenuating lesion in the left lobe of the liver. Prior MRI was not tailored to evaluate this area. Prior CTs without contrast demonstrate this finding. Prior contrast-enhanced CT is not available for comparison at this time. 3. No acute fracture or malalignment in the thoracic spine. Mild multilevel degenerative change. 4. Ectatic infrarenal abdominal aorta, unchanged. Patient had also reports that she had had melenic stools prior to admission but is somewhat vague in this regard. She does have a long history of chronic constipation and uses multiple stimulant laxatives including both dulcolax and senna as well as colace and miralax on a daily basis. However on admission she had a normal H/H and stool guaic was negative. Patient last had an EGD in 2014 and was found to have 2 large clean-based duodenal ulcers. She had a colonoscopy in 2006 that showed pandiverticulosis with a tortuous colon. She also has a history of Mesenteric ischemia. She was seen in 2014 with acute GI bleeding and was found to have gas in the portal vein as well as a thickened jejunum. She did not need surgerical intervention, but did have an MRI/MRA for further evaluation. The results are as follows: IMPRESSION: 1. The current exam is somewhat limited in evaluation of the mesenteric arteries. 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 Evaluation of the NETO is difficult on the current exam. If clinically indicated, CTA of the abdomen and pelvis may be more helpful in evaluating the degree of stenosis within the mesenteric vessels. 2. Bilobed ectasia of the infrarenal abdominal aorta measuring up to 2.6 x 2.4 cm. 3. Relatively atrophic kidneys, left greater than right. No hydronephrosis. Allergies/Medications Allergies: Coded Allergies: STATINS (Severe, RASH, HIVES 12/22/12) Penicillins (UNKNOWN 05/21/17) Sulfa (Sulfonamide Antibiotics) (UNKNOWN 05/21/17) adhesive tape (UNKNOWN 05/21/17) red dye (UNKNOWN 05/21/17) Home Med List: Aspirin (Aspirin*) 81 MG TAB.CHEW 1 TAB PO DAILY heart (Reported) Bisacodyl (Women's Laxative) 5 MG TABLET 2 TAB PO DAILY CONSTIPATION ( Reported) Chlorzoxazone 500 MG TABLET 0.5 TAB PO TID muscle spasm (Reported) Cholecalciferol (Vitamin D3) 1,000 UNIT TABLET 2 TAB PO DAILY SUPPLEMENT ( Reported) Colesevelam HCl (Welchol) 3.75 GRAM POWD.PACK 2 PAC PO DAILY HLD (Reported) mix with water, or juice Diltiazem HCl (Cartia Xt) 120 MG CAP.ER.24H 180 MG PO DAILY heart (Reported) Docusate Sodium (Stool Softener) 50 MG/5 ML LIQUID 50 MG PO DAILY CONSTIPATION (Reported) Folic Acid 1 MG TABLET 1 TAB PO DAILY SUPPLEMENT (Reported) Isosorbide Mononitrate (Isosorbide Mononitrate ER) 120 MG TAB.ER.24H 1 TAB PO DAILY Heart (Reported) Lactulose 10 GRAM/15 ML SOLUTION 30 ML PO BID PRN CONSTIPATION (Reported) Latanoprost 0.005 % DROPS 1 GTT OPH QPM GLAUCOMA (Reported) Levobunolol HCl (Betagan) 0.5 % DROPS 1 DROP OPH QAM GLAUCOMA (Reported) Linagliptin (Tradjenta) 5 MG TABLET 1 TAB PO DAILY diabetes (Reported) Losartan (Cozaar) 100 MG TABLET 1 TAB PO DAILY HTN (Reported) Meclizine HCl 25 MG TABLET 1 TAB PO TIDPRN VERTIGO (Reported) Methotrexate 2.5 MG TABLET 3 TAB PO QW RA (Reported) Patient takes medication on Friday Metoprolol Succ XL (Toprol Xl) 50 MG TAB 1 TAB PO DAILY HTN (Reported) [MSIR] 7.5 MG PO BID PRN PAIN SCALE 7-10 Nitroglycerin (Nitrostat) 0.4 MG TAB.SUBL 1 TAB SL AD PRN ANGINA (Reported) 1st sign of attack; may repeat every 5 minutes until relief; if pain persists after 3 tablets in 15 minutes, prompt medical att Polyethylene Glycol 3350 (Miralax) 17 GRAM POWD.PACK 1 PAC PO DAILY CONSTIPATION (Reported) dissolve in water Prednisone 1 MG TABLET 3 TAB PO DAILY RA (Reported) Ranitidine (Ranitidine HCl) 150 MG TABLET 1 TAB PO BID GERD (Reported) Sennosides (Senna) 8.6 MG TABLET 2 TAB PO BID CONSTIPATION (Reported) Current Medications: Current Medications Sig/Lb Start time Last Medication Dose Route Stop Time Status Admin Acetaminophen 1,000 MG Q6P PRN 01/27 2300 AC IV Aspirin 81 MG DAILY 01/28 900 AC PO Bisacodyl 10 MG DAILY 01/28 09 AC PO Cholecalciferol 2,000 IU DAILY 01/28 09 AC PO Colesevelam HCl 625 MG DAILY 01/28 09 AC PO Cyclobenzaprine HCl 5 MG QPM 01/28 2100 DC PO Cyclobenzaprine HCl 0 .STK-MED ONE 01/28 0043 DC PO Cyclobenzaprine HCl 5 MG QPM 01/28 0030 AC PO Diltiazem HCl 180 MG DAILY 01/28 0900 AC 01/28 PO 0540 Docusate Sodium 50 MG DAILY 01/28 09 AC PO Folic Acid 1 MG DAILY 01/28 09 AC PO Heparin Sodium 0 .STK-MED ONE 01/28 2348 DC (Porcine) .ROUTE Heparin Sodium 0 .STK-MED ONE 01/28 2348 DC (Porcine) .ROUTE Heparin Sodium 5,000 UNIT ONCE ONE 01/27 2100 DC 01/27 (Porcine) IV 01/27 Heparin Sodium 25,000 UNIT Q24H 01/27 2100 DC (Porcine) IV Sodium Chloride 500 ML Heparin Sodium/ 25,000 UNIT Q24H 01/27 2315 AC 01/27 Dextrose IV 2355 Dextrose/Water 500 ML Insulin Human Regular 0 Q6 01/27 2359 AC 01/28 SC 0649 Isosorbide 120 MG DAILY 01/28 0900 AC Mononitrate PO Lactulose 30 GM TID PRN 01/27 2215 AC PO Latanoprost 1 GTT QPM 01/28 2100 DC OPH Latanoprost 1 GTT QPM 01/28 0345 AC 01/28 OPH 0347 Levobunolol HCl 1 GTT QAM 01/28 0900 AC OPH Losartan Potassium 100 MG DAILY 01/28 0900 AC PO Magnesium Sulfate 1 GM Q2H 01/28 0330 DC 01/28 Dextrose/Water 100 ML IV 01/28 0729 0450 Meclizine HCl 25 MG TID PRN 01/27 2230 AC PO Methotrexate 7.5 MG Q7D 01/28 0900 AC PO Metoprolol Succinate 50 MG DAILY 01/28 09 AC PO Metoprolol Tartrate 5 MG ONCE ONE 01/27 1800 DC 01/27 IV 01/27 1801 1837 Nitroglycerin 0.4 MG EVERY 5 MIN PRN 01/27 223 AC SL Non-Formulary 0 SEE ADMIN CRITERIA 01/27 2215 DC Medication ANY Pantoprazole Sodium 0 .STK-MED ONE 01/28 0013 DC IV Pantoprazole Sodium 40 MG BID 01/27 2148 AC 01/28 IV 0010 Polyethylene Glycol 17 GM DAILY 01/28 0900 AC PO Potassium Chloride 30 MEQ BID 01/28 0932 AC PO 01/28 2101 Potassium Chloride 10 MEQ Q1H 01/28 0830 DC 01/28 IV 01/28 0931 0859 Prednisone 3 MG DAILY 01/28 0900 AC PO Senna/Docusate Sodium 1 TAB BID PRN 01/27 2230 AC PO Sodium Chloride 1,000 ML Q13H 01/27 2315 AC 01/28 IV 01/28 1214 0309 Sodium Chloride 1,000 ML BOLUS ONE 01/27 1800 DC 01/27 IV 01/27 1859 1837 Verapamil HCl 50 MG Q10H 01/27 2200 DC 01/27 Sodium Chloride 80 ML IV 2355 Verapamil HCl 2.5 MG ONCE ONE 01/27 1930 DC 01/27 IV 01/27 1931 2355 Past History Travel History Traveled to [place] past 21 day No Medical History Blood Transfusion Hx: Yes Neurological: Meniere's EENT: glaucoma, PSORIASIS Cardiovascular: CAD, hypertension, HYPERCHOLESTEROLEMIA Respiratory: COPD Gastrointestinal: HEMORRHOIDS ISCHEMIC BOWEL Hepatic: NONE Renal: BLADDER SUSPENTION Musculoskeletal: osteoporosis, L WRIST FX OSTEOPOROSIS PSORIATIC ARTHRITIS Psychiatric: NONE Endocrine: diabetes Blood Disorders: NONE Cancer(s): NONE 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 FATHER, , Age 76; Cause: Bone cancer. Psychosocial History Where Do You Live? Home Who Do You Live With? self Services at Home: None Primary Language: Hungarian Smoking Status: Former Smoker Living Will? unknown Power of Asphalt Spreader/HCP? unknown Functional Ability ADLs Independent: dressing, eating, toileting, bathing. Ambulation: independent IADLs Needs Assist: housework, food prep, telephone, transportation. Unknown: shopping, finances, medication admin. Exam & Diagnostic Data Vital Signs and I&O Vital Signs Date Time Temp Pulse Resp B/P B/P Pulse O2 O2 Flow FiO2 Mean Ox Delivery Rate 01/28 0800 98 Room Air 01/28 0800 98.9 80 20 150/70 95 Room Air 01/28 0400 95 Room Air 01/28 0130 97.8 107 18 140/86 94 Room Air 01/28 0130 94 Room Air 01/27 2355 97.9 126 20 149/89 01/27 2355 97.9 126 20 149/89 01/27 2347 97.5 113 18 127/81 97 Room Air Room Air 01/27 2121 97.9 108 18 138/72 96 Room Air 01/27 1838 98.2 135 20 112/79 97 Room Air Room Air 01/27 183 98.5 135 20 121/85 01/27 1735 98 Room Air Room Air 01/27 1734 98.5 135 20 121/85 97 Room Air Room Air 01/27 1646 98.1 129 18 135/87 95 Room Air Intake & Output 01/28 1600 01/28 0400 01/27 1600 01/27 0400 01/26 1600 01/26 0400 Intake Total 726 Output Total 150 Balance 576 Intake, IV 726 Output, Urine 150 Patient 158 lb Weight Weight Bed scale Measurement Method Physical Exam General Appearance: no apparent distress, alert, awake, comfortable Head: atraumatic, normal appearance Eyes: Bilateral: normal appearance. Ears, Nose, Throat: hearing grossly normal Neck: normal inspection, supple Respiratory: normal breath sounds, lungs clear Cardiovascular: irregularly irregular Gastrointestinal: normal bowel sounds, soft, non-tender, no organomegaly, distention Extremities: normal inspection, no edema Neurologic/Psych: no motor/sensory deficits, awake, alert, oriented x 3 Skin: intact, normal color, warm/dry Results Pertinent Lab Results: Laboratory Tests 01/28 01/28 01/28 01/28 0545 0545 0000 0000 Chemistry Sodium (137 - 145 mmol/L) 139 Potassium (3.5 - 5.1 mmol/L) 3.4 L Chloride (98 - 107 mmol/L) 106 Carbon Dioxide (22 - 30 mmol/L) 24 Anion Gap (5 - 16) 9 BUN (7 - 17 mg/dL) 12 Creatinine (0.5 - 1.0 mg/dL) 0.7 Estimated GFR (>60 ml/min) > 60 Glucose (65 - 99 mg/dL) 139 H Calcium (8.4 - 10.2 mg/dL) 8.3 L Phosphorus (2.5 - 4.5 mg/dL) 3.0 Magnesium (1.6 - 2.3 mg/dL) 2.5 H Total Bilirubin (0.2 - 1.3 mg/dL) 0.4 AST (14 - 36 U/L) 27 ALT (9 - 52 U/L) 41 Troponin I (< 0.11 ng/ml) 0.02 0.02 Albumin (3.5 - 5.0 g/dL) 3.5 Alpha Fetoprotein Pending Coagulation APTT (25 - 37 SEC) > 120 *H Hematology CBC w Diff NO MAN DIFF REQ WBC (4.8 - 10.8 /CUMM) 7.7 RBC (4.20 - 5.40 /CUMM) 4.54 Hgb (12.0 - 16.0 G/DL) 14.1 Hct (37 - 47 %) 42.7 MCV (81.0 - 99.0 FL) 94.0 MCH (27.0 - 31.0 PG) 31.1 H MCHC (33.0 - 37.0 G/DL) 33.1 RDW (11.5 - 14.5 %) 13.6 Plt Count (130 - 400 /CUMM) 281 MPV (7.4 - 10.4 FL) 7.7 Gran % (42.2 - 75.2 %) 61.3 Lymphocytes % (20.5 - 51.1 %) 26.4 Monocytes % (1.7 - 9.3 %) 10.4 H Eosinophils % (0 - 5 %) 1.2 Basophils % (0.0 - 2.0 %) 0.7 Absolute Granulocytes (1.4 - 6.5 /CUMM) 4.7 Absolute Lymphocytes (1.2 - 3.4 /CUMM) 2.0 Absolute Monocytes (0.10 - 0.60 /CUMM) 0.8 H Absolute Eosinophils (0.0 - 0.7 /CUMM) 0.1 Absolute Basophils (0.0 - 0.2 /CUMM) 0.1 01/27 1700 Chemistry Sodium (137 - 145 mmol/L) 134 L Potassium (3.5 - 5.1 mmol/L) 4.8 Chloride (98 - 107 mmol/L) 104 Carbon Dioxide (22 - 30 mmol/L) 22 Anion Gap (5 - 16) 8 BUN (7 - 17 mg/dL) 17 Creatinine (0.5 - 1.0 mg/dL) 0.8 Estimated GFR (>60 ml/min) > 60 BUN/Creatinine Ratio (7 - 25 %) 21.3 Glucose (65 - 99 mg/dL) 145 H Calcium (8.4 - 10.2 mg/dL) 9.1 Magnesium (1.6 - 2.3 mg/dL) 1.5 L Total Bilirubin (0.2 - 1.3 mg/dL) 0.5 AST (14 - 36 U/L) 33 ALT (9 - 52 U/L) 41 Alkaline Phosphatase (<127 U/L) 83 Troponin I (< 0.11 ng/ml) 0.02 Total Protein (6.3 - 8.2 g/dL) 6.6 Albumin (3.5 - 5.0 g/dL) 3.6 Globulin (1.9 - 4.2 gm/dL) 3.0 Albumin/Globulin Ratio (1.1 - 2.2 %) 1.2 TSH (0.270 - 4.200 uIU/mL) 0.913 Coagulation PT (9.4 - 12.5 SEC) 11.2 INR (0.90 - 1.19) 1.03 APTT (25 - 37 SEC) 29 Hematology CBC w Diff NO MAN DIFF REQ WBC (4.8 - 10.8 /CUMM) 9.3 RBC (4.20 - 5.40 /CUMM) 4.55 Hgb (12.0 - 16.0 G/DL) 14.1 Hct (37 - 47 %) 42.0 MCV (81.0 - 99.0 FL) 92.4 MCH (27.0 - 31.0 PG) 31.0 MCHC (33.0 - 37.0 G/DL) 33.6 RDW (11.5 - 14.5 %) 13.9 Plt Count (130 - 400 /CUMM) 336 MPV (7.4 - 10.4 FL) 7.8 Gran % (42.2 - 75.2 %) 72.4 Lymphocytes % (20.5 - 51.1 %) 17.7 L Monocytes % (1.7 - 9.3 %) 8.6 Eosinophils % (0 - 5 %) 0.6 Basophils % (0.0 - 2.0 %) 0.7 Absolute Granulocytes (1.4 - 6.5 /CUMM) 6.7 H Absolute Lymphocytes (1.2 - 3.4 /CUMM) 1.6 Absolute Monocytes (0.10 - 0.60 /CUMM) 0.8 H Absolute Eosinophils (0.0 - 0.7 /CUMM) 0.1 Absolute Basophils (0.0 - 0.2 /CUMM) 0.1 Assessment/Plan Assessment/Recommendations: ASSESSMENT: 1. Abdominal Distension -- this is a chronic problem. Patient is currently comfortable and without abdominal pain. Patient may have chronic intermittent pseudo-obstruction in the setting of chronic constipation. 2. Hypoattenuating Liver Lesion 3. Rapid Atrial Fibrillation -- new onset 4. Chronic Constipation 5. Chronic Use of Methotrexate 6. History of Mesenteric Ischemia -- 50% stenosis of SMA and NETO on MRA in January RECOMMENDATIONS: 1. Replete potassium, check B12 and folate as well as TSH 2. Check abdominal flat and cross bed. 3. Patient may have evaluation of liver lesion as an outpatient. It measures O.8 millimeters and is not new. Patient is well-known to Dr. Rosa spears and follows up with him on a regular basis and he can order an MRI with and without contrast. 4. Patient's abdominal distention is a chronic problem. Her exam is totally benign at this moment. She is no abdominal discomfort. I do not believe that further evaluation is necessary. I would recommend that she be started on a vigorous bowel regimen while admitted to [facility] including daily stimulant laxatives as well as MiraLAX. Consult Acknowledgment - Thank you for your consult request.
[2018-01-28 12:00] VITALS: BP 110/74
[2018-01-28] MEDS ORDERED: TRADJENTA5 M1 PO (12:30)
[2018-01-28 13:36] LABS: PTT 86 SEC (25-37)
--- NOTE | 2018-01-28 14:21 | RADIOLOGY REPORT ---
EXAMINATION: ABDOMEN 1 VIEW CLINICAL INFORMATION: Diffuse abdominal pain. Concern for pneumoperitoneum. COMPARISON: 01/27/2018. TECHNIQUE: An upright view of the abdomen is provided. Evaluation is limited secondary to the exposure level related to the patient's extreme body habitus. FINDINGS: There are no dilated loops of small bowel. There are no air-fluid levels. There is no demonstrable aberrant gas. The visualized lung bases are clear. The osseous structures are stable. IMPRESSION: No demonstrable aberrant gas within the abdomen, though evaluation is limited secondary to the exposure level and the patient's extreme body habitus.
[2018-01-28 16:00] VITALS: BP 140/68
--- NOTE | 2018-01-28 18:15 | Cons- Cardiology ---
General Information and HPI Consulting Request Date of Consult: 01/28/18 Requested By: Kathe FOX,Hieu Samayoa Reason for Consult: "New onset" atrial fibrillation with a rapid ventricular response. Source of Information: patient, family, old records Exam Limitations: poor historian History of Present Illness: Mrs. Nasrin Gonzales is an 88-year-old female with a history of obesity , psoriatic arthritis on MTX and steroids, remote hysterectomy, previous GI bleeding secondary to duodenal ulcers, former heavy tobacco use, COPD without home O2, hypertension, dyslipidemia, vascular disease, diabetes mellitus, nonobstructive coronary artery disease, and HFpEF who presented to the ED from her PCPs office where she was found to have a rapid, irregularly, irregular pulse that was followed up with an electrocardiogram that was consistent with atrial fibrillation with a rapid ventricular response. We discussed management options with the ED attending physician and had the patient started on IV verapamil. She converted back to sinus rhythm at ~5:00 a.m. this morning. On questioning, Mrs. Gonzales recalls having "palpitations" for the past few months with a frequency of once every couple of weeks. She also experiences chest pain syndrome with episodes that typically occurs at rest once every couple of weeks, and often respond to sublingual nitroglycerin. Allergies/Medications Allergies: Coded Allergies: STATINS (Severe, RASH, HIVES 12/22/12) Penicillins (UNKNOWN 05/21/17) Sulfa (Sulfonamide Antibiotics) (UNKNOWN 05/21/17) adhesive tape (UNKNOWN 05/21/17) red dye (UNKNOWN 05/21/17) Home Med List: Aspirin (Aspirin*) 81 MG TAB.CHEW 1 TAB PO DAILY heart (Reported) Bisacodyl (Women's Laxative) 5 MG TABLET 2 TAB PO DAILY CONSTIPATION ( Reported) Chlorzoxazone 500 MG TABLET 0.5 TAB PO TID muscle spasm (Reported) Cholecalciferol (Vitamin D3) 1,000 UNIT TABLET 2 TAB PO DAILY SUPPLEMENT ( Reported) Colesevelam HCl (Welchol) 3.75 GRAM POWD.PACK 2 PAC PO DAILY HLD (Reported) mix with water, or juice Diltiazem HCl (Cartia Xt) 120 MG CAP.ER.24H 180 MG PO DAILY heart (Reported) Docusate Sodium (Stool Softener) 50 MG/5 ML LIQUID 50 MG PO DAILY CONSTIPATION (Reported) Folic Acid 1 MG TABLET 1 TAB PO DAILY SUPPLEMENT (Reported) Isosorbide Mononitrate (Isosorbide Mononitrate ER) 120 MG TAB.ER.24H 1 TAB PO DAILY Heart (Reported) Lactulose 10 GRAM/15 ML SOLUTION 30 ML PO BID PRN CONSTIPATION (Reported) Latanoprost 0.005 % DROPS 1 GTT OPH QPM GLAUCOMA (Reported) Levobunolol HCl (Betagan) 0.5 % DROPS 1 DROP OPH QAM GLAUCOMA (Reported) Linagliptin (Tradjenta) 5 MG TABLET 1 TAB PO DAILY diabetes (Reported) Losartan (Cozaar) 100 MG TABLET 1 TAB PO DAILY HTN (Reported) Meclizine HCl 25 MG TABLET 1 TAB PO TIDPRN VERTIGO (Reported) Methotrexate 2.5 MG TABLET 3 TAB PO QW RA (Reported) Patient takes medication on Friday Metoprolol Succ XL (Toprol Xl) 50 MG TAB 1 TAB PO DAILY HTN (Reported) [MSIR] 7.5 MG PO BID PRN PAIN SCALE 7-10 Nitroglycerin (Nitrostat) 0.4 MG TAB.SUBL 1 TAB SL AD PRN ANGINA (Reported) 1st sign of attack; may repeat every 5 minutes until relief; if pain persists after 3 tablets in 15 minutes, prompt medical att Polyethylene Glycol 3350 (Miralax) 17 GRAM POWD.PACK 1 PAC PO DAILY CONSTIPATION (Reported) dissolve in water Prednisone 1 MG TABLET 3 TAB PO DAILY RA (Reported) Ranitidine (Ranitidine HCl) 150 MG TABLET 1 TAB PO BID GERD (Reported) Sennosides (Senna) 8.6 MG TABLET 2 TAB PO BID CONSTIPATION (Reported) Review of Systems Review of Systems: A 14 point system review was obtained and was noncontributory, other than as above. Past History Travel History Traveled to [place] past 21 day No Medical History Blood Transfusion Hx: Yes Neurological: Meniere's EENT: glaucoma, PSORIASIS Cardiovascular: CAD, hypertension, HYPERCHOLESTEROLEMIA Respiratory: COPD Gastrointestinal: HEMORRHOIDS ISCHEMIC BOWEL Hepatic: NONE Renal: BLADDER SUSPENTION Musculoskeletal: osteoporosis, L WRIST FX OSTEOPOROSIS PSORIATIC ARTHRITIS Psychiatric: NONE Endocrine: diabetes Blood Disorders: NONE Cancer(s): NONE SENIOR PROCUREMENT MANAGER/Reproductive: WOMB SUSPENSION TUBAL LIGATION PARTIAL HYSTERECTOMY 3 C SECTIONS Surgical History Surgical History: , hysterectomy, tubal ligation Family History Relations & Conditions If Any: MOTHER, , Age 43; Cause: Myocardial infarct. FATHER, , Age 76; Cause: Bone cancer. Psychosocial History Where Do You Live? Home Who Do You Live With? self Services at Home: None Primary Language: Georgian Smoking Status: Former Smoker Living Will? unknown Power of Story Analyst/HCP? unknown Functional Ability ADLs Independent: dressing, eating, toileting, bathing. Ambulation: independent IADLs Needs Assist: housework, food prep, telephone, transportation. Unknown: shopping, finances, medication admin. Exam & Diagnostic Data Vital Signs and I&O Vital Signs Date Time Temp Pulse Resp B/P B/P Pulse O2 O2 Flow FiO2 Mean Ox Delivery Rate 01/28 1200 Room Air 01/28 1200 97.8 73 23 110/74 96 Room Air 01/28 1035 150/70 01/28 1034 83 150/70 01/28 1034 150/70 01/28 0800 98 Room Air 01/28 0800 98.9 80 20 150/70 95 Room Air 01/28 0400 95 Room Air 01/28 0130 97.8 107 18 140/86 94 Room Air 01/28 0130 94 Room Air 01/27 2355 97.9 126 20 149/89 01/27 2355 97.9 126 20 149/89 01/27 2347 97.5 113 18 127/81 97 Room Air Room Air 01/27 2121 97.9 108 18 138/72 96 Room Air 01/27 1838 98.2 135 20 112/79 97 Room Air Room Air 01/27 1837 98.5 135 20 121/85 Intake & Output 01/28 1600 01/28 0801/28 0000 01/27 1600 01/27 0800 01/27 0000 Intake Total 1229 726 Output Total 550 150 Balance 679 576 Intake, IV 829 726 Intake, Oral 400 Output, Urine 550 150 Patient 158 lb 150 lb Weight Weight Bed scale Reported by Patient Measurement Method Physical Exam: Well-developed, overweight elderly female in no acute distress. Vital signs: See above. HEENT: Normocephalic, atraumatic, EOMI, moist mucous membranes. Neck: No JVD, no bruits. Lungs: Clear to auscultation bilaterally. Heart: S1, S2 with no murmur, gallop, or rub. PMI fifth ICS MCL. Abdomen: Soft, nontender, positive bowel sounds. Extremities: No edema. Labs/Juan Results: Laboratory Tests 01/28 01/28 01/28 01/28 1255 0545 0545 0000 Chemistry Sodium (137 - 145 mmol/L) 139 Potassium (3.5 - 5.1 mmol/L) 3.4 L Chloride (98 - 107 mmol/L) 106 Carbon Dioxide (22 - 30 mmol/L) 24 Anion Gap (5 - 16) 9 BUN (7 - 17 mg/dL) 12 Creatinine (0.5 - 1.0 mg/dL) 0.7 Estimated GFR (>60 ml/min) > 60 Glucose (65 - 99 mg/dL) 139 H Calcium (8.4 - 10.2 mg/dL) 8.3 L Phosphorus (2.5 - 4.5 mg/dL) 3.0 Magnesium (1.6 - 2.3 mg/dL) 2.5 H Total Bilirubin (0.2 - 1.3 mg/dL) 0.4 AST (14 - 36 U/L) 27 ALT (9 - 52 U/L) 41 Troponin I (< 0.11 ng/ml) 0.02 0.02 Albumin (3.5 - 5.0 g/dL) 3.5 Vitamin B12 (239 - 931 pg/mL) 810 Folate (2.76 - 20.0 ng/mL) QNS TSH (0.270 - 4.200 uIU/mL) 1.510 Free T4 (0.85 - 1.93 ng/dL) 2.51 H Coagulation APTT (25 - 37 SEC) 86 H > 120 *H Hematology CBC w Diff NO MAN DIFF REQ WBC (4.8 - 10.8 /CUMM) 7.7 RBC (4.20 - 5.40 /CUMM) 4.54 Hgb (12.0 - 16.0 G/DL) 14.1 Hct (37 - 47 %) 42.7 MCV (81.0 - 99.0 FL) 94.0 MCH (27.0 - 31.0 PG) 31.1 H MCHC (33.0 - 37.0 G/DL) 33.1 RDW (11.5 - 14.5 %) 13.6 Plt Count (130 - 400 /CUMM) 281 MPV (7.4 - 10.4 FL) 7.7 Gran % (42.2 - 75.2 %) 61.3 Lymphocytes % (20.5 - 51.1 %) 26.4 Monocytes % (1.7 - 9.3 %) 10.4 H Eosinophils % (0 - 5 %) 1.2 Basophils % (0.0 - 2.0 %) 0.7 Absolute Granulocytes (1.4 - 6.5 /CUMM) 4.7 Absolute Lymphocytes (1.2 - 3.4 /CUMM) 2.0 Absolute Monocytes (0.10 - 0.60 /CUMM) 0.8 H Absolute Eosinophils (0.0 - 0.7 /CUMM) 0.1 Absolute Basophils (0.0 - 0.2 /CUMM) 0.1 01/28 01/27 0000 1700 Chemistry Sodium (137 - 145 mmol/L) 134 L Potassium (3.5 - 5.1 mmol/L) 4.8 Chloride (98 - 107 mmol/L) 104 Carbon Dioxide (22 - 30 mmol/L) 22 Anion Gap (5 - 16) 8 BUN (7 - 17 mg/dL) 17 Creatinine (0.5 - 1.0 mg/dL) 0.8 Estimated GFR (>60 ml/min) > 60 BUN/Creatinine Ratio (7 - 25 %) 21.3 Glucose (65 - 99 mg/dL) 145 H Calcium (8.4 - 10.2 mg/dL) 9.1 Magnesium (1.6 - 2.3 mg/dL) 1.5 L Total Bilirubin (0.2 - 1.3 mg/dL) 0.5 AST (14 - 36 U/L) 33 ALT (9 - 52 U/L) 41 Alkaline Phosphatase (<127 U/L) 83 Troponin I (< 0.11 ng/ml) 0.02 Total Protein (6.3 - 8.2 g/dL) 6.6 Albumin (3.5 - 5.0 g/dL) 3.6 Globulin (1.9 - 4.2 gm/dL) 3.0 Albumin/Globulin Ratio (1.1 - 2.2 %) 1.2 Alpha Fetoprotein Pending TSH (0.270 - 4.200 uIU/mL) 0.913 Coagulation PT (9.4 - 12.5 SEC) 11.2 INR (0.90 - 1.19) 1.03 APTT (25 - 37 SEC) 29 Hematology CBC w Diff NO MAN DIFF REQ WBC (4.8 - 10.8 /CUMM) 9.3 RBC (4.20 - 5.40 /CUMM) 4.55 Hgb (12.0 - 16.0 G/DL) 14.1 Hct (37 - 47 %) 42.0 MCV (81.0 - 99.0 FL) 92.4 MCH (27.0 - 31.0 PG) 31.0 MCHC (33.0 - 37.0 G/DL) 33.6 RDW (11.5 - 14.5 %) 13.9 Plt Count (130 - 400 /CUMM) 336 MPV (7.4 - 10.4 FL) 7.8 Gran % (42.2 - 75.2 %) 72.4 Lymphocytes % (20.5 - 51.1 %) 17.7 L Monocytes % (1.7 - 9.3 %) 8.6 Eosinophils % (0 - 5 %) 0.6 Basophils % (0.0 - 2.0 %) 0.7 Absolute Granulocytes (1.4 - 6.5 /CUMM) 6.7 H Absolute Lymphocytes (1.2 - 3.4 /CUMM) 1.6 Absolute Monocytes (0.10 - 0.60 /CUMM) 0.8 H Absolute Eosinophils (0.0 - 0.7 /CUMM) 0.1 Absolute Basophils (0.0 - 0.2 /CUMM) 0.1 Diagnostic Data EKG Results 01/28/2018 at 05:01: Sinus rhythm, PVC, otherwise unremarkable. EKG 01/28/2018 at 00: 36: Atrial fibrillation with rapid ventricular response and otherwise unremarkable. CXR Results 01/27/2018: No evidence for acute disease. Stable chest radiograph. Other Results CT abdomen/pelvis 01/27/2018: 1. No acute finding in the abdomen or pelvis. No inflammatory changes. 2. 0.8 cm hyperattenuating lesion in the left lobe of the liver. Prior MRI was not tailored to evaluate this area. Prior CTs without contrast demonstrate this finding. Prior contrast-enhanced CT is not available for comparison at this time. 3. No acute fracture or malalignment in the thoracic spine. Mild multilevel degenerative change. 4. Ectatic infrarenal abdominal aorta, unchanged. Assessment/Plan Assessment/Plan [id number] w/ hx of obesity, psoriatic arthritis on MTX/steroids, remote hysterectomy, previous GI bleeding 2/2 duodenal ulcers, fm heavy tobacco use, COPD w/o home O2, HTN, HLD, vasc dz, DM, mild CAD, & HFpEF who presented in AF w/ RVR that converted back to SR ~05:00 a.m. So far, she is maintaining SR & had her IV verapamil d/c'd. The concern is that she may be having PAF, based on her past history & w/ a high [id number] Score of 7 is at considerable risk for stroke w/ an adjusted stroke rate of 11.2%/year. Alternatively, she also has a history of GI bleeding secondary to a duodenal ulcer. Recommendations: * Transfer to telemetry. * Replete potassium. * Consider endocrine input in regard to elevated free T4 and normal TSH. * Continue outpatient cardiac medications. * Echocardiogram to assess left ventricular function, atrial size, etc. * Ask her pluck trimmer (García Colorado MD) about her suitability for long-term anticoagulation from a GI standpoint. * If we do decide to maintain her on full anticoagulation would maintain her on an NOAC and discontinue antiplatelet therapy. * DVT prophylaxis. Further recommendations will follow, Thank you. Consult Acknowledgment - Thank you for your consult request.
[2018-01-29] VITALS: BP 132/68
[2018-01-29 01:39] LABS: PTT 100 SEC (25-37)
[2018-01-29 05:34] LABS: ABSOLUTE BASOPHIL COUNT 0 /CUMM (0.0-0.2); ABSOLUTE EOSINOPHIL COUNT 0.2 /CUMM (0.0-0.7); ABSOLUTE GRANULOCYTE CT 4.8 /CUMM (1.4-6.5); ABSOLUTE LYMPH COUNT 1.7 /CUMM (1.2-3.4); ABSOLUTE MONOCYTE COUNT 0.7 /CUMM (0.10-0.60); BASOPHIL % 0.5 % (0.0-2.0); EOSINOPHIL % 2.1 % (0-5); GRANULOCYTE % 65.2 % (42.2-75.2); HEMATOCRIT 40.7 % (37-47); MEAN CORPUSCULAR HGB 31.1 PG (27.0-31.0); MEAN CORPUSCULAR VOLUME 94.2 FL (81.0-99.0); MEAN PLATELET VOLUME 7.3 FL (7.4-10.4); PLATELET COUNT 292 /CUMM (130-400); RBC DISTRIBUTION WIDTH 14.3 % (11.5-14.5); RED BLOOD CELL CT 4.32 /CUMM (4.20-5.40); WHITE BLOOD CELL COUNT 7.4 /CUMM (4.8-10.8)
--- NOTE | 2018-01-29 07:21 | PN- Resident CRCU ---
Acosta FOX,[facility] 01/29/18 0721: Subjective HPI/CRCU Issues: Patient states that she had hematuria today. Also states that she feels like her ulcers are acting up. States that she feels like she has a GI bleed. States that this pain is consistent with her heartbeat. However she told GI that this pain is something that she gets all the time and is relieved by antacids at home. Asking to go home Objective Vital Signs & I&O Last 8 Hrs of Vitals and I&O: Laboratory Tests 01/29/18 0745: APTT 104 *H 01/29/18 0510: Anion Gap 10, Estimated GFR > 60, Glucose 141 H, Calcium 8.1 L, Phosphorus 3.1 , Magnesium 1.8, Total Bilirubin 0.3, AST 23, ALT 44, Albumin 3.2 L, Folate > 20.0 H, CBC w Diff NO MAN DIFF REQ, RBC 4.32, MCV 94.2, MCH 31.1 H, MCHC 33.0, RDW 14.3, MPV 7.3 L, Gran % 65.2, Lymphocytes % 23.0, Monocytes % 9.2, Eosinophils % 2.1, Basophils % 0.5, Absolute Granulocytes 4.8, Absolute Lymphocytes 1.7, Absolute Monocytes 0.7 H, Absolute Eosinophils 0.2, Absolute Basophils 0 01/29/18 0056: APTT 100 H 01/28/18 1255: APTT 86 H Vital Signs Date Time Temp Pulse Resp B/P B/P Pulse O2 O2 Flow FiO2 Mean Ox Delivery Rate 01/29 1000 82 158/80 01/29 0800 97.0 72 18 120/70 98 Room Air Intake & Output 01/29 1600 Intake Total Output Total Balance Patient 161 lb Weight Weight Bed scale Measurement Method Intake & Output 01/29 1600 Intake Total Output Total Balance Patient 161 lb Weight Weight Bed scale Measurement Method Exam General Appearance: no apparent distress, alert, awake, anxious, wishes to go home Respiratory: decreased breath sounds Cardiovascular: regular rate/rhythm Gastrointestinal: right-sided abdomen diffusely tender however the greatest tenderness is near the umbilicus Extremities: no lower extremity edema, 2+ radial pulses Current Medications: Current Medications Sig/Lb Start time Last Medication Dose Route Stop Time Status Admin Acetaminophen 1,000 MG Q6P PRN 01/27 2300 AC IV Aspirin 81 MG DAILY 01/28 0900 AC 01/29 PO 0959 Bisacodyl 10 MG 2100 01/29 2100 AC PO Bisacodyl 10 MG DAILY 01/28 0900 DC PO Cholecalciferol 2,000 IU 2100 01/28 2100 AC 01/28 PO 2106 Cholecalciferol 2,000 IU DAILY 01/28 0900 DC PO Colesevelam HCl 1,875 MG DAILY 01/28 1300 AC 01/29 PO 1000 Colesevelam HCl 625 MG DAILY 01/28 09 DC 01/28 PO 1043 Cyclobenzaprine HCl 5 MG QPM 01/28 2100 DC PO Cyclobenzaprine HCl 5 MG QPM 01/28 0030 AC PO Diltiazem HCl 180 MG DAILY 01/28 09 AC 01/29 PO 0959 Docusate Sodium 50 MG 2100 01/28 2100 AC 01/28 PO 2105 Docusate Sodium 50 MG DAILY 01/28 0900 DC PO Folic Acid 1 MG DAILY 01/28 09 AC 01/29 PO 1001 Heparin Sodium/ 25,000 UNIT Q24H 01/27 2315 AC 01/29 Dextrose IV 0146 Dextrose/Water 500 ML Insulin Aspart 0 TIDAC 01/28 1700 AC 01/28 SC 1817 Insulin Human Regular 0 Q6 01/27 2359 DC 01/28 SC 1235 Isosorbide 120 MG DAILY 01/28 09 AC 01/29 Mononitrate PO 0959 Lactulose 30 GM TID PRN 01/27 2215 AC PO Latanoprost 1 GTT QPM 01/28 0345 AC 01/28 OPH 2126 Levobunolol HCl 1 GTT QAM 01/28 0900 AC 01/29 OPH 1002 Losartan Potassium 100 MG DAILY 01/28 0900 AC 01/29 PO 0959 Magnesium Oxide 400 MG ONE ONE 01/29 0730 DC 01/29 PO 01/29 0731 0958 Meclizine HCl 25 MG TID PRN 01/27 2230 AC PO Methotrexate 7.5 MG QFRI 01/30 0900 CAN PO Methotrexate 7.5 MG Q7D 01/28 0900 DC PO Metoprolol Succinate 50 MG DAILY 01/28 0900 AC 01/29 PO 1000 Nitroglycerin 0.4 MG EVERY 5 MIN PRN 01/27 2230 AC SL Pantoprazole Sodium 40 MG BID 01/27 2148 AC 01/29 IV 1003 Patient Own 0 SEE ADMIN CRITERIA.. 01/28 2200 AC 01/28 Medication PO 2317 Polyethylene Glycol 17 GM 2100 01/29 2100 AC PO Polyethylene Glycol 17 GM DAILY 01/28 0900 DC PO Potassium Chloride 30 MEQ BID 01/28 0932 DC 01/28 PO 01/28 2101 2106 Prednisone 3 MG DAILY 01/28 0900 AC 01/29 PO 1000 Senna/Docusate Sodium 1 TAB BID PRN 01/27 2230 AC PO Sodium Chloride 1,000 ML Q13H 01/27 2315 DC 01/28 IV 01/28 1214 0309 Impression/Plan Impression/Problem List Impression: A: 88-year-old female with past medical history of glaucoma, psoriatic arthritis, coronary artery disease, hypertension, hyperlipidemia, bladder suspension procedure, osteoporosis, diabetes mellitus, COPD, Mnire's disease, duodenal ulcers, GI bleed and HFpEF who was sent in by her doctor for tachycardia found to have new onset A. fib. P: #Atrial fibrillation with rapid ventricular rate: Initial EKG showed rapid atrial fibrillation at 145bpm. BRODIE-VASC2 score is 7, 11.2% annual risk of stroke. Cardiology recommended anticoagulation despite her history she had bleed and duodenal ulcers. Troponins 0.0 2X3. TSH normal, free T4 elevated. 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 It is unlikely that this is her pain is due to crohnic mesenteric ischemia. However it is possible that she may have acute mesenteric ischemia given her new onset afib however this is also unlikely. Her abd pain is more likely due to pseudo obstruction given the crohnic nature and absence non-critial occlusion of vessels. Current CT abdomen with IV contrast revealed no acute findings or thoracic spinal fractures. KUB negative for pneumoperitoneum. B12, TSH normal. Free t4 elevated. Folate elevated. -The patient was advanced from nothing by mouth to clear liquid diet to regular diet -cont IV PPI dyspepsia #Back pain Patient complaining of chronic back pain. She does have a history of osteoporosis. CT thoracic spine was negative for any acute cause. -cont cyclobenzaprine -physical therapy consult #Mild hyponatremia - resolved Initial sodium 134 Current 141 Mild hyponatremia resolved with IV fluids #Abnormal CT findings 1) 0.8 cm hyperattenuating lesion in the left lobe of the liver found on prior CTs. 2 Ectatic infrarenal abdominal aorta, unchanged. -outpatient monitoring #Chronic medical problems: Glaucoma, psoriatic arthritis, coronary artery disease, hypertension, hyperlipidemia, bladder suspension procedure, osteoporosis, diabetes mellitus, COPD, Mnire's disease, duodenal ulcers, GI bleed and HFpEF -Continue methotrexate, prednisone, vitamin D, colesevelam, metoprolol, losartan , levobunolol, latanoprost, imudur, nitroglycerin, folic acid, aspirin, meclizine, Colace, MiraLAX, senna, Dulcolax, lactulose,chlorozoxazone -patient states she does want to take linagliptin any longer -will hold metformin and start novolog sliding scale DVT ppx with heparin Carb 3 diet DNR/DNI Problem List: 1. Rapid atrial fibrillation 2. Hematuria Pain Ratin Tomorrow's Labs & Rationales: icu cbc Plan DVT/Prophylaxis: heparin lauren Archuleta MD,[facility] 01/29/18 1000: Attending MD Review Statement Attending Sign Off Other Findings: Seen and examined independently General Appearance Alert, Oriented X3, Cooperative, No Acute Distress Skin No Rashes, No Breakdown, No Significant Lesion HEENT Atraumatic, PERRLA, EOMI Cardiovascular tachy, irregularly irregular Lungs exp wheezing Abdomen distended with diffuse tenderness Neurological Normal Speech Extremities No Edema, Normal Pulses, No Tenderness/Swelling Ms. Gonzales is an 88-year-old female with past medical history of glaucoma, psoriatic arthritis, coronary artery disease, hypertension, hyperlipidemia, bladder suspension procedure, osteoporosis, diabetes mellitus, COPD, Mnire's disease, duodenal ulcers, and HFpEF who was sent in by her doctor for tachycardia. Issues include New-onset Patrial fibrillation with increased ventricular response. Patient is stable now in sinus. On anticoag Some hematuria since this am Abdominal distention upon admission now better. PT does have mild to mod vascular disease in the abdominal arteries. No evidence of bowel ischemia at this time. She also does have a stable infrarenal aortic aneurysm. CT abdomen done unremarkable. Hypokalemia needs replacement History of psoriatic arthritis, on methotrexate and low-dose prednisone hence immunosuppressed Previous history of smoking, mild COPD, bladder neck suspension, no evidence of infection Prior history of GI bleed now on anticoagulation Chronic low back pain now stable RECOMMENDATION Continue current rx Continue anticoagulation and watch for further hematuria Abdominal discomfort seems to be better can advance diet Out of bed to chair Continue bowel regimen Continue low-dose prednisone Watch blood pressure and she is on multiple medications Can be transferred to telemetry
[2018-01-29 08:00] VITALS: BP 120/70
[2018-01-29 08:36] LABS: PTT 104 SEC (25-37)
[2018-01-29 10:00] VITALS: BP 158/80
--- NOTE | 2018-01-29 10:15 | PN- Gastroenterology ---
Assessment/Plan GI Assessment/Recommendations: ASSESSMENT: 1. Abdominal Discomfort. Patient with long history of chronic abdominal discomfort for which she takes TUMS and Zantac on a daily basis. Patient with likely Non-Ulcer Dyspepsia. 2. Abdominal Distension: Chronic. AXR flat and crossbed yesterday revealed unremarkable bowel gas pattern and abdominal exam is benign and not suggestive of an ileus or obstruction 3. Hepatic Lesion. 0.8 mm 4. Rapid A-Fib -- cardiology would like to start patient on anticoagulation RECOMMENDATIONS: 1. Patient can be started on anticoagulation. Is hemoccult negative with no signs of GI blood loss. 2. Start either PPI or Zantac 3. Make sure patient has adequate bowel regimen which includes stimulant laxative 4. Patient to follow up with Dr. [place] as outpatient for evaluation of her hepatic lesion. 5. Treatment plan has been discussed with patient and with her son and daughter -in-law. Subjective Subjective: With mild epigastric discomfort which is chronic for her and for which she takes Zantac or Tums on a regular basis. Did not have bowel movement this morning. But has had little to eat. He had small amount of eggs this morning without difficulty. No nausea or vomiting. He is not on H2 RA or PPI which is part of her medical regimen. Objective Vital Signs and I&Os Vital Signs Date Time Temp Pulse Resp B/P B/P Pulse O2 O2 Flow FiO2 Mean Ox Delivery Rate 01/29 0800 97.0 72 18 120/70 98 Room Air 01/29 0000 97.0 77 24 132/68 96 Room Air 01/28 2000 95 Room Air 01/28 1600 96 Room Air 01/28 1600 97.0 72 23 140/68 96 Room Air 01/28 1200 Room Air 01/28 1200 97.8 73 23 110/74 96 Room Air 01/28 1035 150/70 01/28 1034 83 150/70 01/28 1034 150/70 Intake & Output 01/29 0400 01/28 1600 01/28 0400 01/27 0400 Intake Total 165.8 397 2415 Output Total 425 175 700 Balance -259.2 222 1715 Intake, IV 135.8 57 1555 Intake, Oral 30 340 860 Output, Urine 425 175 700 Patient 161 lb 158 lb Weight Weight Bed scale Bed scale Measurement Method Physical Exam General Appearance: well developed/nourished, alert, awake, comfortable, sitting up in chair Respiratory: lungs clear Cardiovascular: irregularly irregular Abdomen: normal bowel sounds, soft, non-tender, distention, distention is chronic but abdomen is soft without rebound or guarding. There is no tenderness. Neurologic/Psychiatric: alert, oriented x 3, normal mood/affect Skin: intact, normal color, warm/dry Current Medications: Current Medications Sig/Lb Start time Last Medication Dose Route Stop Time Status Admin Acetaminophen 1,000 MG Q6P PRN 01/27 2300 AC IV Aspirin 81 MG DAILY 01/28 09 AC 01/29 PO 0959 Bisacodyl 10 MG DAILY 01/28 0900 AC 01/29 PO 0959 Cholecalciferol 2,000 IU 2100 01/28 2100 AC 01/28 PO 210 Cholecalciferol 2,000 IU DAILY 01/28 09 DC PO Colesevelam HCl 1,875 MG DAILY 01/28 1300 AC 01/29 PO 1000 Colesevelam HCl 625 MG DAILY 01/28 0900 DC 01/28 PO 1043 Cyclobenzaprine HCl 5 MG QPM 01/28 2100 DC PO Cyclobenzaprine HCl 5 MG QPM 01/28 0030 AC PO Diltiazem HCl 180 MG DAILY 01/28 09 AC 01/29 PO 0959 Docusate Sodium 50 MG 2100 01/28 2100 AC 01/28 PO 2105 Docusate Sodium 50 MG DAILY 01/28 0900 DC PO Folic Acid 1 MG DAILY 01/28 0900 AC 01/29 PO 1001 Heparin Sodium/ 25,000 UNIT Q24H 01/27 2315 AC 01/29 Dextrose IV 0146 Dextrose/Water 500 ML Insulin Aspart 0 TIDAC 01/28 1700 AC 01/28 SC 1817 Insulin Human Regular 0 Q6 01/27 2359 DC 01/28 SC 1235 Isosorbide 120 MG DAILY 01/28 09 AC 01/29 Mononitrate PO 0959 Lactulose 30 GM TID PRN 01/27 2215 AC PO Latanoprost 1 GTT QPM 01/28 0345 AC 01/28 OPH 2126 Levobunolol HCl 1 GTT QAM 01/28 0900 AC 01/29 OPH 1002 Losartan Potassium 100 MG DAILY 01/28 0900 AC 01/29 PO 0959 Magnesium Oxide 400 MG ONE ONE 01/29 0730 DC 01/29 PO 01/29 0731 0958 Meclizine HCl 25 MG TID PRN 01/27 2230 AC PO Methotrexate 7.5 MG QFRI 01/30 900 CAN PO Methotrexate 7.5 MG Q7D 01/28 900 DC PO Metoprolol Succinate 50 MG DAILY 01/28 09 AC 01/29 PO 1000 Nitroglycerin 0.4 MG EVERY 5 MIN PRN 01/27 2230 AC SL Pantoprazole Sodium 40 MG BID 01/28 2148 AC 01/29 IV 1003 Patient Own 0 SEE ADMIN CRITERIA.. 01/28 2200 AC 01/28 Medication PO 2317 Polyethylene Glycol 17 GM DAILY 01/28 900 AC PO Potassium Chloride 30 MEQ BID 01/29 932 DC 01/28 PO 01/28 2101 210 Prednisone 3 MG DAILY 01/28 900 AC 01/29 PO 1000 Senna/Docusate Sodium 1 TAB BID PRN 01/27 2230 AC PO Sodium Chloride 1,000 ML Q13H 01/27 2315 DC 01/28 IV 01/28 1214 0309 Results Pertinent Lab Results: Laboratory Tests 01/29 01/29 01/29 01/28 0745 0510 0056 1255 Chemistry Sodium (137 - 145 mmol/L) 141 Potassium (3.5 - 5.1 mmol/L) 4.3 Chloride (98 - 107 mmol/L) 106 Carbon Dioxide (22 - 30 mmol/L) 25 Anion Gap (5 - 16) 10 BUN (7 - 17 mg/dL) 9 Creatinine (0.5 - 1.0 mg/dL) 0.8 Estimated GFR (>60 ml/min) > 60 Glucose (65 - 99 mg/dL) 141 H Calcium (8.4 - 10.2 mg/dL) 8.1 L Phosphorus (2.5 - 4.5 mg/dL) 3.1 Magnesium (1.6 - 2.3 mg/dL) 1.8 Total Bilirubin (0.2 - 1.3 mg/dL) 0.3 AST (14 - 36 U/L) 23 ALT (9 - 52 U/L) 44 Albumin (3.5 - 5.0 g/dL) 3.2 L Folate (2.76 - 20.0 ng/mL) > 20.0 H Coagulation APTT (25 - 37 SEC) 104 *H 100 H 86 H Hematology CBC w Diff NO MAN DIFF REQ WBC (4.8 - 10.8 /CUMM) 7.4 RBC (4.20 - 5.40 /CUMM) 4.32 Hgb (12.0 - 16.0 G/DL) 13.4 Hct (37 - 47 %) 40.7 MCV (81.0 - 99.0 FL) 94.2 MCH (27.0 - 31.0 PG) 31.1 H MCHC (33.0 - 37.0 G/DL) 33.0 RDW (11.5 - 14.5 %) 14.3 Plt Count (130 - 400 /CUMM) 292 MPV (7.4 - 10.4 FL) 7.3 L Gran % (42.2 - 75.2 %) 65.2 Lymphocytes % (20.5 - 51.1 %) 23.0 Monocytes % (1.7 - 9.3 %) 9.2 Eosinophils % (0 - 5 %) 2.1 Basophils % (0.0 - 2.0 %) 0.5 Absolute Granulocytes (1.4 - 6.5 /CUMM) 4.8 Absolute Lymphocytes (1.2 - 3.4 /CUMM) 1.7 Absolute Monocytes (0.10 - 0.60 /CUMM) 0.7 H Absolute Eosinophils (0.0 - 0.7 /CUMM) 0.2 Absolute Basophils (0.0 - 0.2 /CUMM) 0 01/28 01/28 01/28 01/28 0545 0545 0000 0000 Chemistry Sodium (137 - 145 mmol/L) 139 Potassium (3.5 - 5.1 mmol/L) 3.4 L Chloride (98 - 107 mmol/L) 106 Carbon Dioxide (22 - 30 mmol/L) 24 Anion Gap (5 - 16) 9 BUN (7 - 17 mg/dL) 12 Creatinine (0.5 - 1.0 mg/dL) 0.7 Estimated GFR (>60 ml/min) > 60 Glucose (65 - 99 mg/dL) 139 H Calcium (8.4 - 10.2 mg/dL) 8.3 L Phosphorus (2.5 - 4.5 mg/dL) 3.0 Magnesium (1.6 - 2.3 mg/dL) 2.5 H Total Bilirubin (0.2 - 1.3 mg/dL) 0.4 AST (14 - 36 U/L) 27 ALT (9 - 52 U/L) 41 Troponin I (< 0.11 ng/ml) 0.02 0.02 Albumin (3.5 - 5.0 g/dL) 3.5 Alpha Fetoprotein Pending Vitamin B12 (239 - 931 pg/mL) 810 Folate (2.76 - 20.0 ng/mL) QNS TSH (0.270 - 4.200 uIU/mL) 1.510 Free T4 (0.85 - 1.93 ng/dL) 2.51 H Coagulation APTT (25 - 37 SEC) > 120 *H Hematology CBC w Diff NO MAN DIFF REQ WBC (4.8 - 10.8 /CUMM) 7.7 RBC (4.20 - 5.40 /CUMM) 4.54 Hgb (12.0 - 16.0 G/DL) 14.1 Hct (37 - 47 %) 42.7 MCV (81.0 - 99.0 FL) 94.0 MCH (27.0 - 31.0 PG) 31.1 H MCHC (33.0 - 37.0 G/DL) 33.1 RDW (11.5 - 14.5 %) 13.6 Plt Count (130 - 400 /CUMM) 281 MPV (7.4 - 10.4 FL) 7.7 Gran % (42.2 - 75.2 %) 61.3 Lymphocytes % (20.5 - 51.1 %) 26.4 Monocytes % (1.7 - 9.3 %) 10.4 H Eosinophils % (0 - 5 %) 1.2 Basophils % (0.0 - 2.0 %) 0.7 Absolute Granulocytes (1.4 - 6.5 /CUMM) 4.7 Absolute Lymphocytes (1.2 - 3.4 /CUMM) 2.0 Absolute Monocytes (0.10 - 0.60 /CUMM) 0.8 H Absolute Eosinophils (0.0 - 0.7 /CUMM) 0.1 Absolute Basophils (0.0 - 0.2 /CUMM) 0.1 01/27 1700 Chemistry Sodium (137 - 145 mmol/L) 134 L Potassium (3.5 - 5.1 mmol/L) 4.8 Chloride (98 - 107 mmol/L) 104 Carbon Dioxide (22 - 30 mmol/L) 22 Anion Gap (5 - 16) 8 BUN (7 - 17 mg/dL) 17 Creatinine (0.5 - 1.0 mg/dL) 0.8 Estimated GFR (>60 ml/min) > 60 BUN/Creatinine Ratio (7 - 25 %) 21.3 Glucose (65 - 99 mg/dL) 145 H Calcium (8.4 - 10.2 mg/dL) 9.1 Magnesium (1.6 - 2.3 mg/dL) 1.5 L Total Bilirubin (0.2 - 1.3 mg/dL) 0.5 AST (14 - 36 U/L) 33 ALT (9 - 52 U/L) 41 Alkaline Phosphatase (<127 U/L) 83 Troponin I (< 0.11 ng/ml) 0.02 Total Protein (6.3 - 8.2 g/dL) 6.6 Albumin (3.5 - 5.0 g/dL) 3.6 Globulin (1.9 - 4.2 gm/dL) 3.0 Albumin/Globulin Ratio (1.1 - 2.2 %) 1.2 TSH (0.270 - 4.200 uIU/mL) 0.913 Coagulation PT (9.4 - 12.5 SEC) 11.2 INR (0.90 - 1.19) 1.03 APTT (25 - 37 SEC) 29 Hematology CBC w Diff NO MAN DIFF REQ WBC (4.8 - 10.8 /CUMM) 9.3 RBC (4.20 - 5.40 /CUMM) 4.55 Hgb (12.0 - 16.0 G/DL) 14.1 Hct (37 - 47 %) 42.0 MCV (81.0 - 99.0 FL) 92.4 MCH (27.0 - 31.0 PG) 31.0 MCHC (33.0 - 37.0 G/DL) 33.6 RDW (11.5 - 14.5 %) 13.9 Plt Count (130 - 400 /CUMM) 336 MPV (7.4 - 10.4 FL) 7.8 Gran % (42.2 - 75.2 %) 72.4 Lymphocytes % (20.5 - 51.1 %) 17.7 L Monocytes % (1.7 - 9.3 %) 8.6 Eosinophils % (0 - 5 %) 0.6 Basophils % (0.0 - 2.0 %) 0.7 Absolute Granulocytes (1.4 - 6.5 /CUMM) 6.7 H Absolute Lymphocytes (1.2 - 3.4 /CUMM) 1.6 Absolute Monocytes (0.10 - 0.60 /CUMM) 0.8 H Absolute Eosinophils (0.0 - 0.7 /CUMM) 0.1 Absolute Basophils (0.0 - 0.2 /CUMM) 0.1
[2018-01-29 16:00] VITALS: BP 140/60
--- NOTE | 2018-01-29 16:43 | ECHOCARDIOGRAM REPORT ---
WILFREDO CABRERA Age: 88 : 1930 Gender: F Exam Date: 01/28/2018 17:10 Exam Location: [facility] Ht (in): 59 Wt (lb): 150 BSA: 1.71 BP: 110 / 74 Ordering Physician: Scottie Still MD Referring Physician: Vipin Cr MD Technologist: Beth Goldman [facility] Room Number: 109 Indications: AFIB/FLUTTER Rhythm: Sinus Technical Quality: Fair FINDINGS Left Ventricle Small left ventricular cavity. Moderate concentric left ventricular hypertrophy. No obvious regional wall motion abnormalities. Normal left ventricular ejection fraction visually estimated at 65%. "pseudonormal" filling pattern of the left ventricle for age (stage 2 diastolic dysfunction). Right Ventricle Normal right ventricular size and function. Right Atrium Normal right atrial size. Left Atrium Normal left atrial size. Mitral Valve Mildly calcified mitral valve annulus. Mitral valve mildly thickened. Mild mitral regurgitation. Aortic Valve Trileaflet aortic valve. Mild aortic sclerosis. No aortic valve stenosis or regurgitation. Tricuspid Valve Structurally normal tricuspid valve. Mild tricuspid regurgitation. No evidence of pulmonary hypertension. Right ventricular systolic pressure estimated to be within the normal range at 30 mmHg. Pulmonic Valve Pulmonic valve not well visualized, grossly normal. No pulmonic regurgitation. Pericardium No pericardial effusion. Great Vessels Normal size aortic root. Normal size inferior vena cava. CONCLUSIONS Small left ventricular cavity. Moderate concentric left ventricular hypertrophy. Normal left ventricular ejection fraction visually estimated at 65%. "pseudonormal" filling pattern of the left ventricle for age (stage 2 diastolic dysfunction). Normal right ventricular size and function. Normal atrial size. Mild mitral regurgitation. Mild tricuspid regurgitation. No evidence of pulmonary hypertension. Vipin Cr M.D. (Electronically Signed) Final Date: 29 Jan 2018 16:42 MEASUREMENTS (Male / Female) Normal Values 2D ECHO LV Diastolic Diameter PLAX 3.3 cm 4.2 - 5.9 / 3.9 - 5.3 cm LV Systolic Diameter PLAX 2.0 cm 2.1 - 4.0 cm LV Fractional Shortening PLAX 39.4 % 25 - 46 % LV Ejection Fraction 2D Teich 71.2 % IVS Diastolic Thickness 1.5 cm LVPW Diastolic Thickness 1.4 cm LV Relative Wall Thickness 0.9 RV Internal Dim ED PLAX 3.0 cm 1.9 - 3.8 cm LVOT Diameter 2.0 cm Aortic Root Diameter 3.0 cm LA Systolic Diameter LX 3.0 cm 3.0 - 4.0 / 2.7 - 3.8 cm LA Volume 42.0 cm 18 - 58 / 22 - 52 cm Ascending Aorta Diameter 3.1 cm DOPPLER AV Peak Velocity 148.0 cm/s AV Peak Gradient 8.8 mmHg AV Mean Velocity 99.7 cm/s AV Mean Gradient 5.0 mmHg AV Velocity Time Integral 32.7 cm LVOT Peak Velocity 134.0 cm/s LVOT Peak Gradient 7.2 mmHg LVOT Mean Velocity 87.5 cm/s LVOT Mean Gradient 4.0 mmHg LVOT Velocity Time Integral 33.0 cm LVOT Stroke Volume 103.7 cm AV Area Cont Eq vti 3.2 cm AV Area Cont Eq pk 2.8 cm MV Peak Velocity 104.0 cm/s MV Peak Gradient 4.3 mmHg MV Mean Velocity 68.0 cm/s MV Mean Gradient 2.0 mmHg Mitral E Point Velocity 88.4 cm/s Mitral A Point Velocity 79.0 cm/s Mitral E to A Ratio 1.1 MV PHT Velocity 109.0 cm/s MV Deceleration Hand 324.0 cm/s MV Pressure Half Time 100.9 ms MV Area PHT 2.2 cm MV Deceleration Time 238.0 ms TR Peak Velocity 252.0 cm/s TR Peak Gradient 25.4 mmHg Right Atrial Pressure 5.0 mmHg Pulmonary Artery Systolic Pressu 30.4 mmHg Right Ventricular Systolic Press 30.4 mmHg PV Peak Velocity 78.5 cm/s PV Peak Gradient 2.5 mmHg PV Mean Velocity 55.8 cm/s PV Mean Gradient 1.0 mmHg PV Velocity Time Integral 18.3 cm LV E' Lateral Velocity 7.1 cm/s Mitral E to LV E' Lateral Ratio 12.4 LV E' Septal Velocity 6.9 cm/s Mitral E to LV E' Septal Ratio 12.8
--- NOTE | 2018-01-29 17:09 | Cons- Endocrinology ---
General Information and HPI Consulting Request Date of Consult: 01/29/18 Requested By: ICU team Reason for Consult: evaluation of abnormal TFT Source of Information: patient, old records Exam Limitations: no limitations History of Present Illness: Mrs. Nasrin Gonzales is an 88-year-old female with a history of obesity , psoriatic arthritis on MTX and steroid ( prednisone 3 mg daily), remote hysterectomy, previous GI bleeding secondary to duodenal ulcers, former heavy tobacco use, COPD without home O2, hypertension, dyslipidemia, vascular disease, diabetes mellitus, nonobstructive coronary artery disease, and thyroid nodule who presented to the ED for evaluation and management of atrial fibrillation with a rapid ventricular response. Blood work showed TSH 1.51 and free T4 2.51. With regards to diabetes, she is on novolog coverage. Her FSGs were 132, 138 and 165. At home, she was on Tradjenta 5 mg daily. Allergies/Medications Allergies: Coded Allergies: STATINS (Severe, RASH, HIVES 12/22/12) Penicillins (UNKNOWN 05/21/17) Sulfa (Sulfonamide Antibiotics) (UNKNOWN 05/21/17) adhesive tape (UNKNOWN 05/21/17) red dye (UNKNOWN 05/21/17) Home Med List: Aspirin (Aspirin*) 81 MG TAB.CHEW 1 TAB PO DAILY heart (Reported) Bisacodyl (Women's Laxative) 5 MG TABLET 2 TAB PO DAILY CONSTIPATION ( Reported) Chlorzoxazone 500 MG TABLET 0.5 TAB PO TID muscle spasm (Reported) Cholecalciferol (Vitamin D3) 1,000 UNIT TABLET 2 TAB PO DAILY SUPPLEMENT ( Reported) Colesevelam HCl (Welchol) 3.75 GRAM POWD.PACK 2 PAC PO DAILY HLD (Reported) mix with water, or juice Diltiazem HCl (Cartia Xt) 120 MG CAP.ER.24H 180 MG PO DAILY heart (Reported) Docusate Sodium (Stool Softener) 50 MG/5 ML LIQUID 50 MG PO DAILY CONSTIPATION (Reported) Folic Acid 1 MG TABLET 1 TAB PO DAILY SUPPLEMENT (Reported) Isosorbide Mononitrate (Isosorbide Mononitrate ER) 120 MG TAB.ER.24H 1 TAB PO DAILY Heart (Reported) Lactulose 10 GRAM/15 ML SOLUTION 30 ML PO BID PRN CONSTIPATION (Reported) Latanoprost 0.005 % DROPS 1 GTT OPH QPM GLAUCOMA (Reported) Levobunolol HCl (Betagan) 0.5 % DROPS 1 DROP OPH QAM GLAUCOMA (Reported) Linagliptin (Tradjenta) 5 MG TABLET 1 TAB PO DAILY diabetes (Reported) Losartan (Cozaar) 100 MG TABLET 1 TAB PO DAILY HTN (Reported) Meclizine HCl 25 MG TABLET 1 TAB PO TIDPRN VERTIGO (Reported) Methotrexate 2.5 MG TABLET 3 TAB PO QW RA (Reported) Patient takes medication on Friday Metoprolol Succ XL (Toprol Xl) 50 MG TAB 1 TAB PO DAILY HTN (Reported) [MSIR] 7.5 MG PO BID PRN PAIN SCALE 7-10 Nitroglycerin (Nitrostat) 0.4 MG TAB.SUBL 1 TAB SL AD PRN ANGINA (Reported) 1st sign of attack; may repeat every 5 minutes until relief; if pain persists after 3 tablets in 15 minutes, prompt medical att Polyethylene Glycol 3350 (Miralax) 17 GRAM POWD.PACK 1 PAC PO DAILY CONSTIPATION (Reported) dissolve in water Prednisone 1 MG TABLET 3 TAB PO DAILY RA (Reported) Ranitidine (Ranitidine HCl) 150 MG TABLET 1 TAB PO BID GERD (Reported) Sennosides (Senna) 8.6 MG TABLET 2 TAB PO BID CONSTIPATION (Reported) Review of Systems Review of Systems Constitutional: Reports: see HPI. Cardiovascular: Reports: palpitations. Denies: chest pain. Respiratory: Denies: short of breath. GI: Denies: abdominal pain. Musculoskeletal: Reports: see HPI. Hematologic/Endocrine: Denies: polyuria, polydipsia. 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 FATHER, , Age 76; Cause: Bone cancer. Psychosocial History Where Do You Live? Home Who Do You Live With? self Services at Home: None Primary Language: Chinese Smoking Status: Former Smoker Living Will? unknown Power of Cricket Coach/HCP? unknown Functional Ability ADLs Independent: dressing, eating, toileting, bathing. Ambulation: independent IADLs Needs Assist: housework, food prep, telephone, transportation. Unknown: shopping, finances, medication admin. Exam & Diagnostic Data Last 24 Hrs of Vital Signs/I&O Vital Signs Date Time Temp Pulse Resp B/P B/P Pulse O2 O2 Flow FiO2 Mean Ox Delivery Rate 01/29 1000 82 158/80 01/29 08 97.0 72 18 120/70 98 Room Air 01/29 0000 97.0 77 24 132/68 96 Room Air 01/28 2000 95 Room Air Intake & Output 01/29 1600 01/29 0800 01/29 0000 Intake Total 898 165.8 857 Output Total 750 425 175 Balance 148 -259.2 682 Intake, IV 98 135.8 57 Intake, Oral 800 30 800 Output, Urine 750 425 175 Patient 161 lb Weight Weight Bed scale Measurement Method Physical Exam General Appearance: no apparent distress Neck: normal inspection, mild thyromegaly Respiratory: lungs clear Cardiovascular: regular rate/rhythm Gastrointestinal: soft Extremities: no edema Labs/Juan Results: Laboratory Tests 01/29 01/29 01/29 1555 0745 0510 Chemistry Sodium (137 - 145 mmol/L) 141 Potassium (3.5 - 5.1 mmol/L) 4.3 Chloride (98 - 107 mmol/L) 106 Carbon Dioxide (22 - 30 mmol/L) 25 Anion Gap (5 - 16) 10 BUN (7 - 17 mg/dL) 9 Creatinine (0.5 - 1.0 mg/dL) 0.8 Estimated GFR (>60 ml/min) > 60 Glucose (65 - 99 mg/dL) 141 H Calcium (8.4 - 10.2 mg/dL) 8.1 L Phosphorus (2.5 - 4.5 mg/dL) 3.1 Magnesium (1.6 - 2.3 mg/dL) 1.8 Total Bilirubin (0.2 - 1.3 mg/dL) 0.3 AST (14 - 36 U/L) 23 ALT (9 - 52 U/L) 44 Albumin (3.5 - 5.0 g/dL) 3.2 L Folate (2.76 - 20.0 ng/mL) > 20.0 H Coagulation APTT (25 - 37 SEC) Pending 104 *H Hematology CBC w Diff NO MAN DIFF REQ WBC (4.8 - 10.8 /CUMM) 7.4 RBC (4.20 - 5.40 /CUMM) 4.32 Hgb (12.0 - 16.0 G/DL) 13.4 Hct (37 - 47 %) 40.7 MCV (81.0 - 99.0 FL) 94.2 MCH (27.0 - 31.0 PG) 31.1 H MCHC (33.0 - 37.0 G/DL) 33.0 RDW (11.5 - 14.5 %) 14.3 Plt Count (130 - 400 /CUMM) 292 MPV (7.4 - 10.4 FL) 7.3 L Gran % (42.2 - 75.2 %) 65.2 Lymphocytes % (20.5 - 51.1 %) 23.0 Monocytes % (1.7 - 9.3 %) 9.2 Eosinophils % (0 - 5 %) 2.1 Basophils % (0.0 - 2.0 %) 0.5 Absolute Granulocytes (1.4 - 6.5 /CUMM) 4.8 Absolute Lymphocytes (1.2 - 3.4 /CUMM) 1.7 Absolute Monocytes (0.10 - 0.60 /CUMM) 0.7 H Absolute Eosinophils (0.0 - 0.7 /CUMM) 0.2 Absolute Basophils (0.0 - 0.2 /CUMM) 0 / 0056 Coagulation APTT (25 - 37 SEC) 100 H Assessment/Plan Assessment/Plan Mrs. Nasrin Gonzales is an 88-year-old female with a history of obesity , psoriatic arthritis on MTX and steroid ( prednisone 3 mg daily), remote hysterectomy, previous GI bleeding secondary to duodenal ulcers, former heavy tobacco use, COPD without home O2, hypertension, dyslipidemia, vascular disease, diabetes mellitus, nonobstructive coronary artery disease, and thyroid nodule who presented to the ED for evaluation and management of atrial fibrillation with a rapid ventricular response. Now she is in sinus rhythm. Blood work showed TSH 1.51 and free T4 2.51. Her abnormal TFT could be due to sick euthyroid changes. I will order repeat TFT and thyroid antibody panel just to make sure. With regards to diabetes, her FSGs have been stable. She will continue the current Novolog coverage for now. We will continue monitoring her TFT. will follow. Consult Acknowledgment - Thank you for your consult request.
[2018-01-29 19:00] LABS: PTT 51 SEC (25-37)
[2018-01-29 23:49] VITALS: BP 128/64
[2018-01-30 01:31] LABS: PTT 71 SEC (25-37)
[2018-01-30 04:50] LABS: ABSOLUTE BASOPHIL COUNT 0 /CUMM (0.0-0.2); ABSOLUTE EOSINOPHIL COUNT 0.2 /CUMM (0.0-0.7); ABSOLUTE GRANULOCYTE CT 3.9 /CUMM (1.4-6.5); ABSOLUTE LYMPH COUNT 1.6 /CUMM (1.2-3.4); ABSOLUTE MONOCYTE COUNT 0.7 /CUMM (0.10-0.60); BASOPHIL % 0.2 % (0.0-2.0); EOSINOPHIL % 2.6 % (0-5); GRANULOCYTE % 61.2 % (42.2-75.2); HEMATOCRIT 37.8 % (37-47); MEAN CORPUSCULAR HGB 31.6 PG (27.0-31.0); MEAN CORPUSCULAR HGB CONC 33.9 G/DL (33.0-37.0); MEAN CORPUSCULAR VOLUME 93.3 FL (81.0-99.0); MEAN PLATELET VOLUME 7.2 FL (7.4-10.4); PLATELET COUNT 272 /CUMM (130-400); RBC DISTRIBUTION WIDTH 14.2 % (11.5-14.5); RED BLOOD CELL CT 4.05 /CUMM (4.20-5.40); WHITE BLOOD CELL COUNT 6.4 /CUMM (4.8-10.8)
--- NOTE | 2018-01-30 07:16 | PN- Resident CRCU ---
Subjective HPI/CRCU Issues: No acute events overnight. Patient reluctant about seeing urology for hematuria. Spoke with pt and her family and was informed they did not want to see Dr. Alatorre. Ok to see urology if it is not Dr. Alatorre. Objective Vital Signs & I&O Last 8 Hrs of Vitals and I&O: Laboratory Tests 01/30/18 0425: Anion Gap 9, Estimated GFR 59 L, Glucose 130 H, Calcium 8.2 L, Phosphorus 4.3 , Magnesium 1.9, Total Bilirubin 0.3, AST 24, ALT 38, Albumin 2.9 L, Free T4 1.69, Total T3 1.13, TSH &T3 &Free T4 Intrp 1.600, CBC w Diff NO MAN DIFF REQ, RBC 4.05 L, MCV 93.3, MCH 31.6 H, MCHC 33.9, RDW 14.2, MPV 7.2 L, Gran % 61.2 , Lymphocytes % 24.8, Monocytes % 11.2 H, Eosinophils % 2.6, Basophils % 0.2, Absolute Granulocytes 3.9, Absolute Lymphocytes 1.6, Absolute Monocytes 0.7 H, Absolute Eosinophils 0.2, Absolute Basophils 0, Thyroglobulin Antibody < 15, Thyroid Peroxidase Ab 32 01/30/18 0110: APTT 71 H 01/29/18 1555: APTT 51 H Vital Signs Date Time Temp Pulse Resp B/P B/P Pulse O2 O2 Flow FiO2 Mean Ox Delivery Rate 01/30 1045 76 168/70 01/30 0800 97.2 64 16 118/60 95 Room Air Intake & Output 01/30 1600 Intake Total Output Total 300 Balance -300 Output, Urine 300 Patient 169 lb Weight Weight Bed scale Measurement Method Intake & Output 01/30 1600 Intake Total Output Total 300 Balance -300 Output, Urine 300 Patient 169 lb Weight Weight Bed scale Measurement Method Exam General Appearance: alert, awake, anxious Respiratory: normal breath sounds Cardiovascular: regular rate/rhythm Gastrointestinal: normal bowel sounds, soft, non-tender, large abd Extremities: no LE edema. 2+ radial pulses. Current Medications: Current Medications Sig/Lb Start time Last Medication Dose Route Stop Time Status Admin Acetaminophen 1,000 MG Q6P PRN 01/27 2300 AC IV Aspirin 81 MG DAILY 01/28 09 AC 01/30 PO 1054 Bisacodyl 10 MG 2100 01/29 2100 AC 01/29 PO 2118 Cholecalciferol 2,000 IU 01/28 2100 AC 01/29 PO 2118 Colesevelam HCl 1,875 MG DAILY 01/28 1300 AC 01/30 PO 1053 Cyclobenzaprine HCl 5 MG QPM 01/28 0030 AC 01/29 PO 2119 Diltiazem HCl 180 MG DAILY 01/28 0900 AC 01/30 PO 1054 Docusate Sodium 50 MG 2100 01/28 2100 AC 01/29 PO 2120 Folic Acid 1 MG DAILY 01/28 0900 AC 01/30 PO 1054 Heparin Sodium/ 25,000 UNIT Q24H 01/27 2315 AC 01/29 Dextrose IV 0146 Dextrose/Water 500 ML Insulin Aspart 0 TIDAC 01/28 1700 AC 01/30 SC 1202 Isosorbide 120 MG DAILY 01/28 0900 AC 01/30 Mononitrate PO 1054 Lactulose 30 GM TID PRN 01/27 2215 AC PO Latanoprost 1 GTT QPM 01/28 0345 AC 01/29 OPH 2119 Levobunolol HCl 1 GTT QAM 01/28 0900 AC 01/30 OPH 1057 Losartan Potassium 100 MG DAILY 01/28 0900 AC 01/30 PO 1054 Meclizine HCl 25 MG TID PRN 01/27 223 AC 01/30 PO 0104 Melatonin 5 MG AT BEDTIME 01/29 2100 AC 01/29 PO 9 Metoprolol Succinate 50 MG DAILY 01/28 0900 AC 01/30 PO 1054 Nitroglycerin 0.4 MG EVERY 5 MIN PRN 01/27 2230 AC SL Pantoprazole Sodium 40 MG BID 01/27 214 AC 01/30 IV 1054 Patient Own 0 SEE ADMIN CRITERIA.. 01/28 2200 AC 01/28 Medication PO 2317 Polyethylene Glycol 17 GM 01/29 AC 01/29 PO 2120 Prednisone 3 MG DAILY 01/28 09 AC 01/30 PO 1054 Senna/Docusate Sodium 1 TAB BID PRN 01/27 2230 AC PO Impression/Plan Impression/Problem List Impression: A: 88-year-old female with past medical history of glaucoma, psoriatic arthritis, coronary artery disease, hypertension, hyperlipidemia, bladder suspension procedure, osteoporosis, diabetes mellitus, COPD, Mnire's disease, duodenal ulcers, GI bleed and HFpEF who was sent in by her doctor for tachycardia found to have new onset A. fib. P: #Atrial fibrillation with rapid ventricular rate: Initial EKG showed rapid atrial fibrillation at 145bpm. BRODIE-VASC2 score is 7, 11.2% annual risk of stroke. Cardiology recommended anticoagulation despite her history of GI bleed and duodenal ulcers. Troponins 0.0 2X3. Hemooccult negative and ok by GI for anticoagulation. Echo: EF 65% with stage II diastolic dysfunction -Spoke with cardiology who was ok to switch to eliquis. Will start eliquis 5mg BID tonight and stop heparin drip. Guiac negative today. Ok to anticoagulate per urology. -Switched from Verapamil drip to by mouth diltiazem. -Continue cardiology recommendations #hematuria with urinary retnetion Patient has had hematuria that she states has occurred before starting heparin. Her hematuria is most likely exacerbated BiPAP. Seen by urology who stated it was okay to anticoagulate her. She will need a cystoscopy. Urinalysis is remarkable for blood. She does have urinary retention with a postvoid residual of 303. -Spoke with urology who recommended follow catheter for her urinary retention. Will irrigate every shift and when necessary for hematuria to prevent clotting. If discharged soon Dr. Bernal recommended that the patient leave with the [facility] and he will see her earlier outpatient. -Follow-up urine culture and cytology -If the patient stays, she may get a cystoscopy from Dr. Bernal otherwise outpatient urology follow-up #Abdominal distention with a history of celiac and sma atherosclerotic dz Previous MRI revaeled celiac and SMA with approximately 50% luminal narrowing. It is unlikely that this is her pain is due to crohnic mesenteric ischemia. However it is possible that she may have acute mesenteric ischemia given her new onset afib however this is also unlikely. Her abd pain is more likely due to pseudo obstruction given the crohnic nature and absence non-critial occlusion of vessels. Current CT abdomen with IV contrast revealed no acute findings or thoracic spinal fractures. KUB negative for pneumoperitoneum. B12, TSH normal. Free t4 elevated. Folate elevated. -The patient was advanced from nothing by mouth to clear liquid diet to regular diet -cont IV PPI for GI upset/dyspepsia -cont aggressive stool regimen #abnormal TFT Initial TSH normal, free T4 elevated. Repeat levels were normal -f/u UA, Culture, cytology and PVR -outpatient follow up with Dr. Zuñiga #Back pain Patient complaining of chronic back pain. She does have a history of osteoporosis. CT thoracic spine was negative for any acute cause. -stopped cyclobenzaprine. pt takes choloroxazone -physical therapy consult #Mild hyponatremia - resolved Initial sodium 134 Current 148 Mild hyponatremia resolved with IV fluids #Abnormal CT findings 1) 0.8 cm hyperattenuating lesion in the left lobe of the liver found on prior CTs. 2 Ectatic infrarenal abdominal aorta, unchanged. -outpatient monitoring with Dr. [place] #Chronic medical problems: Glaucoma, psoriatic arthritis, coronary artery disease, hypertension, hyperlipidemia, bladder suspension procedure, osteoporosis, diabetes mellitus, COPD, Mnire's disease, duodenal ulcers, GI bleed and HFpEF -Continue methotrexate, prednisone, vitamin D, colesevelam, metoprolol, losartan , levobunolol, latanoprost, imudur, nitroglycerin, folic acid, aspirin, meclizine, Colace, MiraLAX, senna, Dulcolax, lactulose -patient states she does want to take linagliptin any longer -will hold metformin and start novolog sliding scale DVT ppx with heparin Carb 3 diet DNR/DNI Problem List: 1. Rapid atrial fibrillation Pain Ratin Tomorrow's Labs & Rationales: icu cbc Plan DVT/Prophylaxis: heparin drip
[2018-01-30 08:00] VITALS: BP 118/60
--- NOTE | 2018-01-30 09:14 | PN- Pulmonary ---
Subjective HPI/Critical Care Issues: DOing ok, In sinus, rate is controlled Has hematuria Wishes not to have too much done per pt No sig pain Objective Current Medications: Current Medications Sig/Lb Start time Last Medication Dose Route Stop Time Status Admin Acetaminophen 1,000 MG Q6P PRN 01/27 2300 AC IV Aspirin 81 MG DAILY 01/28 09 AC 01/29 PO 0959 Bisacodyl 10 MG 01/29 AC 01/29 PO 2118 Bisacodyl 10 MG DAILY 01/28 0900 DC PO Cholecalciferol 2,000 IU 01/28 AC 01/29 PO 2118 Colesevelam HCl 1,875 MG DAILY 01/28 1300 AC 01/29 PO 1000 Cyclobenzaprine HCl 5 MG QPM 01/28 0030 AC 01/29 PO 2118 Diltiazem HCl 180 MG DAILY 01/28 09 AC 01/29 PO 0959 Docusate Sodium 50 MG 01/28 AC 01/29 PO 2120 Folic Acid 1 MG DAILY 01/28 09 AC 01/29 PO 1001 Heparin Sodium/ 25,000 UNIT Q24H 01/27 2315 AC 01/29 Dextrose IV 0146 Dextrose/Water 500 ML Insulin Aspart 0 TIDAC 01/28 1700 AC 01/29 SC 1708 Isosorbide 120 MG DAILY 01/28 09 AC 01/29 Mononitrate PO 0959 Lactulose 30 GM TID PRN 01/27 221 AC PO Latanoprost 1 GTT QPM 01/28 0345 AC 01/29 OPH 2119 Levobunolol HCl 1 GTT QAM 01/28 09 AC 01/29 OPH 1002 Losartan Potassium 100 MG DAILY 01/28 09 AC 01/29 PO 0959 Meclizine HCl 25 MG TID PRN 01/27 223 AC 01/30 PO 0104 Melatonin 5 MG AT BEDTIME 01/29 2100 AC 01/29 PO 2119 Metoprolol Succinate 50 MG DAILY 01/28 09 AC 01/29 PO 1000 Nitroglycerin 0.4 MG EVERY 5 MIN PRN 01/27 2230 AC SL Pantoprazole Sodium 40 MG BID 01/28 2148 AC 01/29 IV 2119 Patient Own 0 SEE ADMIN CRITERIA.. 01/28 2200 AC 01/28 Medication PO 231 Polyethylene Glycol 17 GM 01/29 AC 01/29 PO 2120 Polyethylene Glycol 17 GM DAILY 01/28 0900 DC PO Prednisone 3 MG DAILY 01/28 0900 AC 01/29 PO 1000 Senna/Docusate Sodium 1 TAB BID PRN 01/27 2230 AC PO Vital Signs & I&O Last 24 Hrs of Vitals and I&O: Vital Signs Date Time Temp Pulse Resp B/P B/P Pulse O2 O2 Flow FiO2 Mean Ox Delivery Rate 01/29 2349 98.4 66 22 128/64 94 Room Air 01/29 1600 98.7 72 20 140/60 95 Room Air 01/29 1000 82 158/80 Intake & Output 01/30 1600 01/30 0800 01/30 0000 Intake Total 348.8 944 Output Total 400 700 Balance -51.2 244 Intake, IV 108.8 104 Intake, Oral 240 840 Output, Urine 400 700 Laboratory Tests 01/30 01/30 01/29 0425 0110 1555 Chemistry Sodium (137 - 145 mmol/L) 138 Potassium (3.5 - 5.1 mmol/L) 4.2 Chloride (98 - 107 mmol/L) 106 Carbon Dioxide (22 - 30 mmol/L) 23 Anion Gap (5 - 16) 9 BUN (7 - 17 mg/dL) 16 Creatinine (0.5 - 1.0 mg/dL) 0.9 Estimated GFR (>60 ml/min) 59 L Glucose (65 - 99 mg/dL) 130 H Calcium (8.4 - 10.2 mg/dL) 8.2 L Phosphorus (2.5 - 4.5 mg/dL) 4.3 Magnesium (1.6 - 2.3 mg/dL) 1.9 Total Bilirubin (0.2 - 1.3 mg/dL) 0.3 AST (14 - 36 U/L) 24 ALT (9 - 52 U/L) 38 Albumin (3.5 - 5.0 g/dL) 2.9 L Free T4 (0.85 - 1.93 ng/dL) 1.69 Total T3 (0.97 - 1.69 ng/mL) 1.13 TSH &T3 &Free T4 Intrp (0.270 - 4.20 uIU/mL) 1.600 Coagulation APTT (25 - 37 SEC) 71 H 51 H Hematology CBC w Diff NO MAN DIFF REQ WBC (4.8 - 10.8 /CUMM) 6.4 RBC (4.20 - 5.40 /CUMM) 4.05 L Hgb (12.0 - 16.0 G/DL) 12.8 Hct (37 - 47 %) 37.8 MCV (81.0 - 99.0 FL) 93.3 MCH (27.0 - 31.0 PG) 31.6 H MCHC (33.0 - 37.0 G/DL) 33.9 RDW (11.5 - 14.5 %) 14.2 Plt Count (130 - 400 /CUMM) 272 MPV (7.4 - 10.4 FL) 7.2 L Gran % (42.2 - 75.2 %) 61.2 Lymphocytes % (20.5 - 51.1 %) 24.8 Monocytes % (1.7 - 9.3 %) 11.2 H Eosinophils % (0 - 5 %) 2.6 Basophils % (0.0 - 2.0 %) 0.2 Absolute Granulocytes (1.4 - 6.5 /CUMM) 3.9 Absolute Lymphocytes (1.2 - 3.4 /CUMM) 1.6 Absolute Monocytes (0.10 - 0.60 /CUMM) 0.7 H Absolute Eosinophils (0.0 - 0.7 /CUMM) 0.2 Absolute Basophils (0.0 - 0.2 /CUMM) 0 Immunology Thyroglobulin Antibody (< 61 U/mL) < 15 Thyroid Peroxidase Ab (< 61 U/mL) 32 01/29 01/29 01/29 01/28 0745 0510 0056 1255 Chemistry Sodium (137 - 145 mmol/L) 141 Potassium (3.5 - 5.1 mmol/L) 4.3 Chloride (98 - 107 mmol/L) 106 Carbon Dioxide (22 - 30 mmol/L) 25 Anion Gap (5 - 16) 10 BUN (7 - 17 mg/dL) 9 Creatinine (0.5 - 1.0 mg/dL) 0.8 Estimated GFR (>60 ml/min) > 60 Glucose (65 - 99 mg/dL) 141 H Calcium (8.4 - 10.2 mg/dL) 8.1 L Phosphorus (2.5 - 4.5 mg/dL) 3.1 Magnesium (1.6 - 2.3 mg/dL) 1.8 Total Bilirubin (0.2 - 1.3 mg/dL) 0.3 AST (14 - 36 U/L) 23 ALT (9 - 52 U/L) 44 Albumin (3.5 - 5.0 g/dL) 3.2 L Folate (2.76 - 20.0 ng/mL) > 20.0 H Coagulation APTT (25 - 37 SEC) 104 *H 100 H 86 H Hematology CBC w Diff NO MAN DIFF REQ WBC (4.8 - 10.8 /CUMM) 7.4 RBC (4.20 - 5.40 /CUMM) 4.32 Hgb (12.0 - 16.0 G/DL) 13.4 Hct (37 - 47 %) 40.7 MCV (81.0 - 99.0 FL) 94.2 MCH (27.0 - 31.0 PG) 31.1 H MCHC (33.0 - 37.0 G/DL) 33.0 RDW (11.5 - 14.5 %) 14.3 Plt Count (130 - 400 /CUMM) 292 MPV (7.4 - 10.4 FL) 7.3 L Gran % (42.2 - 75.2 %) 65.2 Lymphocytes % (20.5 - 51.1 %) 23.0 Monocytes % (1.7 - 9.3 %) 9.2 Eosinophils % (0 - 5 %) 2.1 Basophils % (0.0 - 2.0 %) 0.5 Absolute Granulocytes (1.4 - 6.5 /CUMM) 4.8 Absolute Lymphocytes (1.2 - 3.4 /CUMM) 1.7 Absolute Monocytes (0.10 - 0.60 /CUMM) 0.7 H Absolute Eosinophils (0.0 - 0.7 /CUMM) 0.2 Absolute Basophils (0.0 - 0.2 /CUMM) 0 Microbiology Date/Time Procedure - Status Source Growth 01/28 110 Surveillance Culture - COMP UPPER RESP 01/28 110 Surveillance Culture - COMP GI Impression/Plan Impression/Plan Impression/Plan: General Appearance Alert, Oriented X3, Cooperative, No Acute Distress Skin No Rashes, No Breakdown, No Significant Lesion HEENT Atraumatic, PERRLA, EOMI Cardiovascular tachy, irregularly irregular Lungs exp wheezing Abdomen distended with diffuse tenderness Neurological Normal Speech Extremities No Edema, Normal Pulses, No Tenderness/Swelling Ms. Gonzales is an 88-year-old female with past medical history of glaucoma, psoriatic arthritis, coronary artery disease, hypertension, hyperlipidemia, bladder suspension procedure, osteoporosis, diabetes mellitus, COPD, Mnire's disease, duodenal ulcers, and HFpEF who was sent in by her doctor for tachycardia. Issues include New-onset Patrial fibrillation with increased ventricular response. Patient is stable now in sinus. On anticoag Some hematuria since two days Abdominal distention upon admission now better. PT does have mild to mod vascular disease in the abdominal arteries. No evidence of bowel ischemia at this time. She also does have a stable infrarenal aortic aneurysm. CT abdomen done unremarkable. History of psoriatic arthritis, on methotrexate and low-dose prednisone hence immunosuppressed Previous history of smoking, mild COPD, bladder neck suspension, no evidence of infection Prior history of GI bleed now on anticoagulation Chronic low back pain now stable RECOMMENDATION Continue current rx UA, Culture, cytology today Post void residual urine quantity check Continue anticoagulation and watch for further hematuria, if crit is ok and cardio to decide Out of bed to chair Continue bowel regimen Continue low-dose prednisone Watch blood pressure and she is on multiple medications Can be transferred to telemetry
--- NOTE | 2018-01-30 10:16 | PN- Endocrinology ---
Assessment/Plan Endoscopy Assessment: Mrs. Nasrin Gonzales is an 88-year-old female with a history of obesity , psoriatic arthritis on MTX and steroid ( prednisone 3 mg daily), remote hysterectomy, previous GI bleeding secondary to duodenal ulcers, former heavy tobacco use, COPD without home O2, hypertension, dyslipidemia, vascular disease, diabetes mellitus, nonobstructive coronary artery disease, and thyroid nodule who presented to the ED for evaluation and management of atrial fibrillation with a rapid ventricular response. Now she is in sinus rhythm. Blood work showed TSH 1.51 and free T4 2.51. Repeat TFT done on 01/30/2018 showed TSH 1.6, free T4 1.69 and TT3 1.13; anti TPO 32 and anti Tg < 15. Her abnormal TFT on admission could be due to sick euthyroid changes. With regards to diabetes, she is on Novolog coverage. Her FSGs 132, 138, 165 and 178. She will continue the current Novolog coverage for now. As she has had hx of thyroid nodule, I have recommended that she follow up with Dr. Zuñiga in the office after discharge as she used to see Dr. Zuñiga. Plan: see above Subjective Subjective: She feels okay this morning. Objective Last 24 Hrs of Vital Signs/I&O Vital Signs Date Time Temp Pulse Resp B/P B/P Pulse O2 O2 Flow FiO2 Mean Ox Delivery Rate 01/29 2349 98.4 66 22 128/64 94 Room Air 01/29 1600 98.7 72 20 140/60 95 Room Air Intake & Output 01/30 1600 01/30 0800 06 0000 Intake Total 348.8 944 Output Total 400 700 Balance -51.2 244 Intake, IV 108.8 104 Intake, Oral 240 840 Output, Urine 400 700 Results Pertinent Lab/Juan Results: Laboratory Tests 01/30 01/30 01/29 0425 0110 1555 Chemistry Sodium (137 - 145 mmol/L) 138 Potassium (3.5 - 5.1 mmol/L) 4.2 Chloride (98 - 107 mmol/L) 106 Carbon Dioxide (22 - 30 mmol/L) 23 Anion Gap (5 - 16) 9 BUN (7 - 17 mg/dL) 16 Creatinine (0.5 - 1.0 mg/dL) 0.9 Estimated GFR (>60 ml/min) 59 L Glucose (65 - 99 mg/dL) 130 H Calcium (8.4 - 10.2 mg/dL) 8.2 L Phosphorus (2.5 - 4.5 mg/dL) 4.3 Magnesium (1.6 - 2.3 mg/dL) 1.9 Total Bilirubin (0.2 - 1.3 mg/dL) 0.3 AST (14 - 36 U/L) 24 ALT (9 - 52 U/L) 38 Albumin (3.5 - 5.0 g/dL) 2.9 L Free T4 (0.85 - 1.93 ng/dL) 1.69 Total T3 (0.97 - 1.69 ng/mL) 1.13 TSH &T3 &Free T4 Intrp (0.270 - 4.20 uIU/mL) 1.600 Coagulation APTT (25 - 37 SEC) 71 H 51 H Hematology CBC w Diff NO MAN DIFF REQ WBC (4.8 - 10.8 /CUMM) 6.4 RBC (4.20 - 5.40 /CUMM) 4.05 L Hgb (12.0 - 16.0 G/DL) 12.8 Hct (37 - 47 %) 37.8 MCV (81.0 - 99.0 FL) 93.3 MCH (27.0 - 31.0 PG) 31.6 H MCHC (33.0 - 37.0 G/DL) 33.9 RDW (11.5 - 14.5 %) 14.2 Plt Count (130 - 400 /CUMM) 272 MPV (7.4 - 10.4 FL) 7.2 L Gran % (42.2 - 75.2 %) 61.2 Lymphocytes % (20.5 - 51.1 %) 24.8 Monocytes % (1.7 - 9.3 %) 11.2 H Eosinophils % (0 - 5 %) 2.6 Basophils % (0.0 - 2.0 %) 0.2 Absolute Granulocytes (1.4 - 6.5 /CUMM) 3.9 Absolute Lymphocytes (1.2 - 3.4 /CUMM) 1.6 Absolute Monocytes (0.10 - 0.60 /CUMM) 0.7 H Absolute Eosinophils (0.0 - 0.7 /CUMM) 0.2 Absolute Basophils (0.0 - 0.2 /CUMM) 0 Immunology Thyroglobulin Antibody (< 61 U/mL) < 15 Thyroid Peroxidase Ab (< 61 U/mL) 32
[2018-01-30 10:45] VITALS: BP 168/70
--- NOTE | 2018-01-30 11:46 | Cons- Urology ---
General Information and HPI Consulting Request Date of Consult: 01/30/18 Requested By: Kathe FOX,Hieu Samayoa Reason for Consult: hematuria Source of Information: patient, old records Exam Limitations: no limitations History of Present Illness: Pt in ICU for anemia, cardiac reasons: noted to have hematuria on heparin. Pt states that he has had intermittent hematuria for a long time since her hysterectomy and bladder surgery at the age of 18(?). Ms. Gonzales is an 88-year-old female with past medical history of glaucoma, psoriatic arthritis, coronary artery disease, hypertension, hyperlipidemia, bladder suspension procedure, osteoporosis, diabetes mellitus, COPD, Mnire's disease, duodenal ulcers, and HFpEF who was sent in by her doctor for tachycardia. Please note the patient is a poor historian. The patient says that she was at her primary care doctor's office today for regular follow-up when he noticed that her heart rate was high. The primary care doctor called Dr. Cr and recommended taking an EKG. EKG showed atrial fibrillation with rapid ventricular rate and she was instructed to come to the emergency room for further evaluation. The patient notes that she has had palpitations about once every 2 weeks for the past 3 months. She has not noticed any association with the palpitations. She further notes that she has had left-sided chest pain about once every 2 weeks as well relieved by nitro mostly occurring at rest. She further reports chronic back pain, abdominal distention, nausea, black stools intermittently, and potentially also using NSAIDs despite being told not to. She says that she can walk across a parking lot and up 1 flight of stairs before getting tired. She denies any dysuria or vomiting. She is a former smoker and denies alcohol or drug use. Allergies/Medications Allergies: Coded Allergies: STATINS (Severe, RASH, HIVES 12/22/12) Penicillins (UNKNOWN 05/21/17) Sulfa (Sulfonamide Antibiotics) (UNKNOWN 05/21/17) adhesive tape (UNKNOWN 05/21/17) red dye (UNKNOWN 05/21/17) Home Med List: Aspirin (Aspirin*) 81 MG TAB.CHEW 1 TAB PO DAILY heart (Reported) Bisacodyl (Women's Laxative) 5 MG TABLET 2 TAB PO DAILY CONSTIPATION ( Reported) Chlorzoxazone 500 MG TABLET 0.5 TAB PO TID muscle spasm (Reported) Cholecalciferol (Vitamin D3) 1,000 UNIT TABLET 2 TAB PO DAILY SUPPLEMENT ( Reported) Colesevelam HCl (Welchol) 3.75 GRAM POWD.PACK 2 PAC PO DAILY HLD (Reported) mix with water, or juice Diltiazem HCl (Cartia Xt) 120 MG CAP.ER.24H 180 MG PO DAILY heart (Reported) Docusate Sodium (Stool Softener) 50 MG/5 ML LIQUID 50 MG PO DAILY CONSTIPATION (Reported) Folic Acid 1 MG TABLET 1 TAB PO DAILY SUPPLEMENT (Reported) Isosorbide Mononitrate (Isosorbide Mononitrate ER) 120 MG TAB.ER.24H 1 TAB PO DAILY Heart (Reported) Lactulose 10 GRAM/15 ML SOLUTION 30 ML PO BID PRN CONSTIPATION (Reported) Latanoprost 0.005 % DROPS 1 GTT OPH QPM GLAUCOMA (Reported) Levobunolol HCl (Betagan) 0.5 % DROPS 1 DROP OPH QAM GLAUCOMA (Reported) Linagliptin (Tradjenta) 5 MG TABLET 1 TAB PO DAILY diabetes (Reported) Losartan (Cozaar) 100 MG TABLET 1 TAB PO DAILY HTN (Reported) Meclizine HCl 25 MG TABLET 1 TAB PO TIDPRN VERTIGO (Reported) Methotrexate 2.5 MG TABLET 3 TAB PO QW RA (Reported) Patient takes medication on Friday Metoprolol Succ XL (Toprol Xl) 50 MG TAB 1 TAB PO DAILY HTN (Reported) [MSIR] 7.5 MG PO BID PRN PAIN SCALE 7-10 Nitroglycerin (Nitrostat) 0.4 MG TAB.SUBL 1 TAB SL AD PRN ANGINA (Reported) 1st sign of attack; may repeat every 5 minutes until relief; if pain persists after 3 tablets in 15 minutes, prompt medical att Polyethylene Glycol 3350 (Miralax) 17 GRAM POWD.PACK 1 PAC PO DAILY CONSTIPATION (Reported) dissolve in water Prednisone 1 MG TABLET 3 TAB PO DAILY RA (Reported) Ranitidine (Ranitidine HCl) 150 MG TABLET 1 TAB PO BID GERD (Reported) Sennosides (Senna) 8.6 MG TABLET 2 TAB PO BID CONSTIPATION (Reported) Current Medications: Current Medications Sig/Lb Start time Last Medication Dose Route Stop Time Status Admin Acetaminophen 1,000 MG Q6P PRN 01/27 2300 AC IV Aspirin 81 MG DAILY 01/28 0900 AC 01/30 PO 1054 Bisacodyl 10 MG 2100 05/31 2100 AC 01/29 PO 9 Cholecalciferol 2,000 IU 2100 01/28 2100 AC 01/29 PO 2118 Colesevelam HCl 1,875 MG DAILY 01/28 1300 AC 01/30 PO 1053 Cyclobenzaprine HCl 5 MG QPM 01/28 0030 AC 01/29 PO 2119 Diltiazem HCl 180 MG DAILY 01/28 0900 AC 01/30 PO 1054 Docusate Sodium 50 MG 01/28 AC 01/29 PO 2120 Folic Acid 1 MG DAILY 01/28 0900 AC 01/30 PO 1054 Heparin Sodium/ 25,000 UNIT Q24H 01/27 2315 AC 01/29 Dextrose IV 0146 Dextrose/Water 500 ML Insulin Aspart 0 TIDAC 01/28 1700 AC 01/29 SC 1708 Isosorbide 120 MG DAILY 01/28 0900 AC 01/30 Mononitrate PO 1054 Lactulose 30 GM TID PRN 01/27 221 AC PO Latanoprost 1 GTT QPM 01/28 0345 AC 01/29 OPH 2119 Levobunolol HCl 1 GTT QAM 01/28 0900 AC 01/30 OPH 1057 Losartan Potassium 100 MG DAILY 01/28 09 AC 01/30 PO 1054 Meclizine HCl 25 MG TID PRN 01/27 2230 AC 01/30 PO 0104 Melatonin 5 MG AT BEDTIME 01/29 2100 AC 01/29 PO 2118 Metoprolol Succinate 50 MG DAILY 01/28 09 AC 01/30 PO 1054 Nitroglycerin 0.4 MG EVERY 5 MIN PRN 01/27 2230 AC SL Pantoprazole Sodium 40 MG BID 01/28 2148 AC 01/30 IV 1054 Patient Own 0 SEE ADMIN CRITERIA.. 01/28 2200 AC 01/28 Medication PO 2317 Polyethylene Glycol 17 GM 01/29 AC 01/29 PO 0 Prednisone 3 MG DAILY 01/28 09 AC 01/30 PO 1054 Senna/Docusate Sodium 1 TAB BID PRN 01/27 2230 AC PO Past History Medical History Blood Transfusion Hx: Yes Neurological: Meniere's EENT: glaucoma, PSORIASIS Cardiovascular: CAD, hypertension, HYPERCHOLESTEROLEMIA Respiratory: COPD Gastrointestinal: HEMORRHOIDS ISCHEMIC BOWEL Hepatic: NONE Renal: BLADDER SUSPENTION Musculoskeletal: osteoporosis, L WRIST FX OSTEOPOROSIS PSORIATIC ARTHRITIS Psychiatric: NONE Endocrine: diabetes Blood Disorders: NONE Cancer(s): NONE 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 FATHER, , Age 76; Cause: Bone cancer. Psychosocial History Where Do You Live? Home Who Do You Live With? self Services at Home: None Primary Language: Thai Smoking Status: Former Smoker Living Will? unknown Power of Tank House Supervisor/HCP? unknown Functional Ability ADLs Independent: dressing, eating, toileting, bathing. Ambulation: independent IADLs Needs Assist: housework, food prep, telephone, transportation. Unknown: shopping, finances, medication admin. Employment History Retired? yes Review of Systems Review of Systems Constitutional: Reports: see HPI. EENTM: Denies: no symptoms. Cardiovascular: Denies: no symptoms. Respiratory: Denies: no symptoms. GI: Reports: bloating. Musculoskeletal: Denies: no symptoms. Exam & Diagnostic Data Vital Signs and I&O Vital Signs Date Time Temp Pulse Resp B/P B/P Pulse O2 O2 Flow FiO2 Mean Ox Delivery Rate 01/30 1045 76 168/70 01/30 0800 97.2 64 16 118/60 95 Room Air 01/29 2349 98.4 66 22 128/64 94 Room Air 01/29 1600 98.7 72 20 140/60 95 Room Air Intake & Output 01/30 1600 01/30 0800 01/30 0000 01/29 1600 01/29 0800 01/29 0000 Intake Total 348.8 944 898 165.8 857 Output Total 400 700 750 425 175 Balance -51.2 244 148 -259.2 682 Intake, IV 108.8 104 98 135.8 57 Intake, Oral 240 840 800 30 800 Output, Urine 400 700 750 425 175 Patient 169 lb 161 lb Weight Weight Bed scale Bed scale Measurement Method Physical Exam General Appearance: well developed/nourished, no apparent distress, obese Head: atraumatic Eyes: Bilateral: normal appearance. Respiratory: normal breath sounds Cardiovascular: irregularly irregular Gastrointestinal: normal bowel sounds, soft Back: no vertebral tenderness Last 24 Hours of Labs: Laboratory Tests 01/30 01/30 01/29 0425 0110 1555 Chemistry Sodium (137 - 145 mmol/L) 138 Potassium (3.5 - 5.1 mmol/L) 4.2 Chloride (98 - 107 mmol/L) 106 Carbon Dioxide (22 - 30 mmol/L) 23 Anion Gap (5 - 16) 9 BUN (7 - 17 mg/dL) 16 Creatinine (0.5 - 1.0 mg/dL) 0.9 Estimated GFR (>60 ml/min) 59 L Glucose (65 - 99 mg/dL) 130 H Calcium (8.4 - 10.2 mg/dL) 8.2 L Phosphorus (2.5 - 4.5 mg/dL) 4.3 Magnesium (1.6 - 2.3 mg/dL) 1.9 Total Bilirubin (0.2 - 1.3 mg/dL) 0.3 AST (14 - 36 U/L) 24 ALT (9 - 52 U/L) 38 Albumin (3.5 - 5.0 g/dL) 2.9 L Free T4 (0.85 - 1.93 ng/dL) 1.69 Total T3 (0.97 - 1.69 ng/mL) 1.13 TSH &T3 &Free T4 Intrp (0.270 - 4.20 uIU/mL) 1.600 Coagulation APTT (25 - 37 SEC) 71 H 51 H Hematology CBC w Diff NO MAN DIFF REQ WBC (4.8 - 10.8 /CUMM) 6.4 RBC (4.20 - 5.40 /CUMM) 4.05 L Hgb (12.0 - 16.0 G/DL) 12.8 Hct (37 - 47 %) 37.8 MCV (81.0 - 99.0 FL) 93.3 MCH (27.0 - 31.0 PG) 31.6 H MCHC (33.0 - 37.0 G/DL) 33.9 RDW (11.5 - 14.5 %) 14.2 Plt Count (130 - 400 /CUMM) 272 MPV (7.4 - 10.4 FL) 7.2 L Gran % (42.2 - 75.2 %) 61.2 Lymphocytes % (20.5 - 51.1 %) 24.8 Monocytes % (1.7 - 9.3 %) 11.2 H Eosinophils % (0 - 5 %) 2.6 Basophils % (0.0 - 2.0 %) 0.2 Absolute Granulocytes (1.4 - 6.5 /CUMM) 3.9 Absolute Lymphocytes (1.2 - 3.4 /CUMM) 1.6 Absolute Monocytes (0.10 - 0.60 /CUMM) 0.7 H Absolute Eosinophils (0.0 - 0.7 /CUMM) 0.2 Absolute Basophils (0.0 - 0.2 /CUMM) 0 Immunology Thyroglobulin Antibody (< 61 U/mL) < 15 Thyroid Peroxidase Ab (< 61 U/mL) 32 Imaging Results: PATIENT: WILFREDO GONZALES PRESENT AGE: 88 PATIENT ACCOUNT NO: [id number] : [birth year] LOCATION: [facility] ORDERING PHYSICIAN: Scottie Still MD SERVICE DATE: 01/27/18- EXAM TYPE: CAT - CT ABD & PELVIS W IV CONTRAST; CT THOR SPINE WO IV CONTRAST EXAMINATION: CT ABDOMEN AND PELVIS WITH CONTRAST CT THORACIC SPINE WITHOUT CONTRAST CLINICAL INFORMATION: Abdominal pain. Back pain. COMPARISON: Multiple priors, most recently 07/24/2016. TECHNIQUE: Multidetector volumetric imaging of the thoracic spine was initially performed without IV contrast. Multidetector volumetric imaging was then performed of the abdomen and pelvis following IV administration of 94 mL of Optiray 320 intravenous contrast. Sagittal and coronal reformatted images were obtained on the technologist's workstation. DLP: 1348 mGy-cm FINDINGS: LUNG BASES: There is subsegmental atelectasis at the lung bases. The remaining visualized portion of the lungs on the thoracic spine CT demonstrates minimal opacity in the right perihilar upper lobe. Bronchial wall thickening noted. The visualized cardiac structures are unremarkable. LIVER, GALLBLADDER, AND BILIARY TREE: The liver is normal in size, shape, and attenuation. There is a 0.8 cm hyperattenuating lesion in segment 2 of the liver. No additional hepatic lesion or biliary ductal dilatation is present. The gallbladder is unremarkable with no evidence of radiopaque gallstones, gallbladder wall thickening, or obvious pericholecystic inflammatory changes. PANCREAS: The pancreas is atrophic. Calcifications are present in the pancreatic parenchyma with irregular ductal dilatation. The appearance is suggestive of chronic pancreatitis. SPLEEN: Unremarkable. ADRENAL GLANDS: Unremarkable. KIDNEYS AND URETERS: The left kidney is somewhat atrophic. Bilateral renal cortical thinning. There are multiple hypoattenuating lesions seen in both kidneys. No hydronephrosis or nephrolithiasis. BLADDER: Unremarkable. GASTROINTESTINAL TRACT: The stomach is decompressed with no gross abnormality. The small bowel is normal in caliber. There is no obstruction. No colonic wall thickening or inflammatory change. Colonic diverticulosis noted without evidence of diverticulitis. No free air or free fluid. ABDOMINAL WALL: No significant hernia is appreciated. LYMPH NODES: Normal. VASCULAR: There is ectatic infrarenal abdominal aorta, measuring up to 2.5 cm AP. Moderate upper scrota calcifications are seen throughout the vasculature. PELVIC VISCERA: The uterus is not seen. No adnexal mass. OSSEOUS STRUCTURES: Bilateral L5 pars defects are present with grade 2 anterolisthesis of L5 on S1. This is unchanged. There is a compression deformity of the L4 vertebral body which is also unchanged. Multilevel endplate osteophytes with facet arthropathy. Multilevel vacuum disc phenomenon. Chronic left superior and inferior pubic rami fractures are again noted. Alignment at the hips is maintained with mild degenerative changes present. THORACIC SPINE: Dedicated thoracic spine acquisition demonstrates no acute fracture or subluxation. Vertebral body height and alignment is maintained. The disc spaces are maintained. There are multilevel small endplate osteophytes with lateral bridging on the right noted at the lower thoracic spine. There is no bony narrowing of the spinal canal. There is no bony neuroforaminal narrowing. Healed posterior left 11th rib fracture noted. IMPRESSION: 1. No acute finding in the abdomen or pelvis. No inflammatory changes. 2. 0.8 cm hyperattenuating lesion in the left lobe of the liver. Prior MRI was not tailored to evaluate this area. Prior CTs without contrast demonstrate this finding. Prior contrast-enhanced CT is not available for comparison at this time. 3. No acute fracture or malalignment in the thoracic spine. Mild multilevel degenerative change. 4. Ectatic infrarenal abdominal aorta, unchanged. Assessment/Plan Assessment/Plan hematuria on heparin: send urine for cytology. proceed with anti-coagulation unless H/H drops and/or pt becomes symptomatic: will need cystoscopy-possibly outpatient if discharged soon. Copies To: Omar Bernal MD Consult Acknowledgment - Thank you for your consult request. Attending MD Review Statement Attending Statement Attending MD Statement: examined this patient, discuss w/resident/PA/FASHION PHOTOGRAPHER Attending Assessment/Plan: hematuria for "a while" according to pt: worse on anti-coagulation: send urine for cytology: resume anti-coagulation and hold if pt with significant h/h drop or symptomatic. will cystoscope in future when out of ICU, or as outpatient if discharged.
[2018-01-30 14:30] LABS: PTT 79 SEC (25-37)
--- NOTE | 2018-01-30 15:25 | Discharge Summary ---
Visit Information Visit Dates Admission Date: 01/27/18 Discharge Date: 02/01/18 Hospital Course Course Attending Physician: Zoraida Domingo MD Primary Care Physician: Aparna FOX,[facility] Course: A: 88-year-old female with past medical history of glaucoma, psoriatic arthritis, coronary artery disease, hypertension, hyperlipidemia, bladder suspension procedure, osteoporosis, diabetes mellitus, COPD, Mnire's disease, duodenal ulcers, GI bleed and HFpEF who was sent in by her doctor for tachycardia found to have new onset A. fib. P: #Atrial fibrillation with rapid ventricular rate: Initial EKG showed rapid atrial fibrillation at 145bpm. BRODIE-VASC2 score is 7, 11.2% annual risk of stroke. She was started on verapamil and heparin drip. Cardiology recommended anticoagulation despite her history of GI bleed and duodenal ulcers. Troponins and EKG negative for ACS. Echo revealed EF 65% with stage II diastolic dysfunction. She was switched to eliquis 5mg BID. Verapamil drip was switched to by mouth diltiazem. #Hematuria with urinary retnetion Patient has had hematuria that she states has occurred before starting heparin. She has a history of bladder suspension surgery. Her hematuria is most likely exacerbated by heparin. Seen by urology who stated it was okay to anticoagulate her. She will need a cystoscopy. Urinalysis is remarkable for blood. She had urinary retention with a postvoid residual of 303. Urology recommended to discharge with a gómez catheter and follow up Dr. Bernal soon next week for cystoscopy and follow up of cytology. #Abdominal distention with a history of celiac and sma atherosclerotic dz Previous MRI revealed celiac and SMA with approximately 50% luminal narrowing. It is unlikely that this her pain is due to crohnic mesenteric ischemia. However it is possible that she may have acute mesenteric ischemia given her new onset afib however this is also unlikely. Her abd pain is more likely due to pseudo obstruction given the crohnic nature and absence non-critial occlusion of vessels. Current CT abdomen with IV contrast revealed no acute findings or thoracic spinal fractures. KUB negative for pneumoperitoneum. B12, TSH normal. Free t4 elevated. Folate was elevated. The patient was advanced from nothing by mouth to clear liquid diet to regular diet IV PPI was given for GI upset/dyspepsia. She was encouraged to continue her aggressive stool regimen upon discharge. #abnormal TFT Initial TSH normal, free T4 elevated. Repeat levels were normal. Seen by endo who thought it was euthryroid sick syndrome. Recommended outpatient follow up with Dr. Zuñiga #Back pain Patient complains of chronic back pain. She does have a history of osteoporosis. CT thoracic spine was negative for any acute cause. Continued choloroxazone from home. #Mild hyponatremia Initial sodium 134. Mild hyponatremia resolved with IV fluids #Abnormal CT findings 1) 0.8 cm hyperattenuating lesion in the left lobe of the liver found on prior CTs. 2 Ectatic infrarenal abdominal aorta, unchanged. She needs outpatient monitoring with Dr. [place] #Chronic medical problems: Glaucoma, psoriatic arthritis, coronary artery disease, hypertension, hyperlipidemia, bladder suspension procedure, osteoporosis, diabetes mellitus, COPD, Mnire's disease, duodenal ulcers, GI bleed and HFpEF -Continued methotrexate, prednisone, vitamin D, colesevelam, metoprolol, losartan, levobunolol, latanoprost, imudur, nitroglycerin, folic acid, aspirin, meclizine, Colace, MiraLAX, senna, Dulcolax, lactulose -patient states she does want to take linagliptin any longer -Held metformin and started novolog sliding scale Allergies: Coded Allergies: STATINS (Severe, RASH, HIVES 12/22/12) Penicillins (UNKNOWN 05/21/17) Sulfa (Sulfonamide Antibiotics) (UNKNOWN 05/21/17) adhesive tape (UNKNOWN 05/21/17) red dye (UNKNOWN 05/21/17) Pertinent Lab Results: EXAM TYPE: CARD - ECHOCARDIOGRAM WILFREDO CABRERA Age: 88 : 1930 Gender: F Exam Date: 01/28/2018 17:10 Exam Location: [facility] Ht (in): 59 Wt (lb): 150 BSA: 1.71 BP: 110 / 74 Ordering Physician: Scottie Still MD Referring Physician: Vipin Cr MD Technologist: Beth Goldman LISA Room Number: 109 Indications: AFIB/FLUTTER Rhythm: Sinus Technical Quality: Fair FINDINGS Left Ventricle Small left ventricular cavity. Moderate concentric left ventricular hypertrophy. No obvious regional wall motion abnormalities. Normal left ventricular ejection fraction visually estimated at 65%. "pseudonormal" filling pattern of the left ventricle for age (stage 2 diastolic dysfunction). Right Ventricle Normal right ventricular size and function. Right Atrium Normal right atrial size. Left Atrium Normal left atrial size. Mitral Valve Mildly calcified mitral valve annulus. Mitral valve mildly thickened. Mild mitral regurgitation. Aortic Valve Trileaflet aortic valve. Mild aortic sclerosis. No aortic valve stenosis or regurgitation. Tricuspid Valve Structurally normal tricuspid valve. Mild tricuspid regurgitation. No evidence of pulmonary hypertension. Right ventricular systolic pressure estimated to be within the normal range at 30 mmHg. Pulmonic Valve Pulmonic valve not well visualized, grossly normal. No pulmonic regurgitation. Pericardium No pericardial effusion. Great Vessels Normal size aortic root. Normal size inferior vena cava. CONCLUSIONS Small left ventricular cavity. Moderate concentric left ventricular hypertrophy. Normal left ventricular ejection fraction visually estimated at 65%. "pseudonormal" filling pattern of the left ventricle for age (stage 2 diastolic dysfunction). Normal right ventricular size and function. Normal atrial size. Mild mitral regurgitation. Mild tricuspid regurgitation. No evidence of pulmonary hypertension. Vipin Cr M.D. (Electronically Signed) Final Date: 29 Jan 2018 16:42 MEASUREMENTS (Male / Female) Normal Values 2D ECHO LV Diastolic Diameter PLAX 3.3 cm 4.2 - 5.9 / 3.9 - 5.3 cm LV Systolic Diameter PLAX 2.0 cm 2.1 - 4.0 cm LV Fractional Shortening PLAX 39.4 % 25 - 46 % LV Ejection Fraction 2D Teich 71.2 % IVS Diastolic Thickness 1.5 cm LVPW Diastolic Thickness 1.4 cm LV Relative Wall Thickness 0.9 RV Internal Dim ED PLAX 3.0 cm 1.9 - 3.8 cm LVOT Diameter 2.0 cm Aortic Root Diameter 3.0 cm LA Systolic Diameter LX 3.0 cm 3.0 - 4.0 / 2.7 - 3.8 cm LA Volume 42.0 cm 18 - 58 / 22 - 52 cm Ascending Aorta Diameter 3.1 cm DOPPLER AV Peak Velocity 148.0 cm/s AV Peak Gradient 8.8 mmHg AV Mean Velocity 99.7 cm/s AV Mean Gradient 5.0 mmHg AV Velocity Time Integral 32.7 cm LVOT Peak Velocity 134.0 cm/s LVOT Peak Gradient 7.2 mmHg LVOT Mean Velocity 87.5 cm/s LVOT Mean Gradient 4.0 mmHg LVOT Velocity Time Integral 33.0 cm LVOT Stroke Volume 103.7 cm AV Area Cont Eq vti 3.2 cm AV Area Cont Eq pk 2.8 cm MV Peak Velocity 104.0 cm/s MV Peak Gradient 4.3 mmHg MV Mean Velocity 68.0 cm/s MV Mean Gradient 2.0 mmHg Mitral E Point Velocity 88.4 cm/s Mitral A Point Velocity 79.0 cm/s Mitral E to A Ratio 1.1 MV PHT Velocity 109.0 cm/s MV Deceleration Butts 324.0 cm/s MV Pressure Half Time 100.9 ms MV Area PHT 2.2 cm MV Deceleration Time 238.0 ms TR Peak Velocity 252.0 cm/s TR Peak Gradient 25.4 mmHg Right Atrial Pressure 5.0 mmHg Pulmonary Artery Systolic Pressu 30.4 mmHg Right Ventricular Systolic Press 30.4 mmHg PV Peak Velocity 78.5 cm/s PV Peak Gradient 2.5 mmHg PV Mean Velocity 55.8 cm/s PV Mean Gradient 1.0 mmHg PV Velocity Time Integral 18.3 cm LV E' Lateral Velocity 7.1 cm/s Mitral E to LV E' Lateral Ratio 12.4 LV E' Septal Velocity 6.9 cm/s Mitral E to LV E' Septal Ratio 12.8 EXAM TYPE: CAT - CT ABD & PELVIS W IV CONTRAST; CT THOR SPINE WO IV CONTRAST EXAMINATION: CT ABDOMEN AND PELVIS WITH CONTRAST CT THORACIC SPINE WITHOUT CONTRAST CLINICAL INFORMATION: Abdominal pain. Back pain. COMPARISON: Multiple priors, most recently 07/24/2016. TECHNIQUE: Multidetector volumetric imaging of the thoracic spine was initially performed without IV contrast. Multidetector volumetric imaging was then performed of the abdomen and pelvis following IV administration of 94 mL of Optiray 320 intravenous contrast. Sagittal and coronal reformatted images were obtained on the technologist's workstation. DLP: 1348 mGy-cm FINDINGS: LUNG BASES: There is subsegmental atelectasis at the lung bases. The remaining visualized portion of the lungs on the thoracic spine CT demonstrates minimal opacity in the right perihilar upper lobe. Bronchial wall thickening noted. The visualized cardiac structures are unremarkable. LIVER, GALLBLADDER, AND BILIARY TREE: The liver is normal in size, shape, and attenuation. There is a 0.8 cm hyperattenuating lesion in segment 2 of the liver. No additional hepatic lesion or biliary ductal dilatation is present. The gallbladder is unremarkable with no evidence of radiopaque gallstones, gallbladder wall thickening, or obvious pericholecystic inflammatory changes. PANCREAS: The pancreas is atrophic. Calcifications are present in the pancreatic parenchyma with irregular ductal dilatation. The appearance is suggestive of chronic pancreatitis. SPLEEN: Unremarkable. ADRENAL GLANDS: Unremarkable. KIDNEYS AND URETERS: The left kidney is somewhat atrophic. Bilateral renal cortical thinning. There are multiple hypoattenuating lesions seen in both kidneys. No hydronephrosis or nephrolithiasis. BLADDER: Unremarkable. GASTROINTESTINAL TRACT: The stomach is decompressed with no gross abnormality. The small bowel is normal in caliber. There is no obstruction. No colonic wall thickening or inflammatory change. Colonic diverticulosis noted without evidence of diverticulitis. No free air or free fluid. ABDOMINAL WALL: No significant hernia is appreciated. LYMPH NODES: Normal. VASCULAR: There is ectatic infrarenal abdominal aorta, measuring up to 2.5 cm AP. Moderate upper scrota calcifications are seen throughout the vasculature. PELVIC VISCERA: The uterus is not seen. No adnexal mass. OSSEOUS STRUCTURES: Bilateral L5 pars defects are present with grade 2 anterolisthesis of L5 on S1. This is unchanged. There is a compression deformity of the L4 vertebral body which is also unchanged. Multilevel endplate osteophytes with facet arthropathy. Multilevel vacuum disc phenomenon. Chronic left superior and inferior pubic rami fractures are again noted. Alignment at the hips is maintained with mild degenerative changes present. THORACIC SPINE: Dedicated thoracic spine acquisition demonstrates no acute fracture or subluxation. Vertebral body height and alignment is maintained. The disc spaces are maintained. There are multilevel small endplate osteophytes with lateral bridging on the right noted at the lower thoracic spine. There is no bony narrowing of the spinal canal. There is no bony neuroforaminal narrowing. Healed posterior left 11th rib fracture noted. IMPRESSION: 1. No acute finding in the abdomen or pelvis. No inflammatory changes. 2. 0.8 cm hyperattenuating lesion in the left lobe of the liver. Prior MRI was not tailored to evaluate this area. Prior CTs without contrast demonstrate this finding. Prior contrast-enhanced CT is not available for comparison at this time. 3. No acute fracture or malalignment in the thoracic spine. Mild multilevel degenerative change. 4. Ectatic infrarenal abdominal aorta, unchanged. Disposition Summary Disposition Principal Diagnosis: Atrial fibrillation with rapid ventricular rate: Additional Diagnosis: Hematuria with urinary retnetion Abdominal distention with a history of celiac and sma atherosclerotic dz Abnormal TFT Back pain Mild hyponatremia Abnormal CT findings Discharge Disposition: home health services Discharge Instructions General Discharge Information Code Status: Do Not Resucitate/Intubat Patient's Diet: Heart healthy Patient's Activity: As tolerated Follow-Up Instructions/Appts: Please follow up with your PCP in 1 week. Please follow up with your call out clerk Dr. Myers in 1 week. Please follow up with urology (Dr. Bernal) in the next few days. Please follow up with GI in 1-2 weeks. Please watch for severe bleeding and return to the ED for any concerns. Medications at Discharge Discharge Medications: Continue taking these medications: [MSIR] 7.5 Milligram ORAL TWICE DAILY as needed for PAIN SCALE 7-10 Days = 10 Comments: NOT GIVEN Aspirin (Aspirin*) 81 MG TAB.CHEW 1 Tablet ORAL DAILY Comments: Last Taken: 02/01/18 Time: 908 Diltiazem HCl (Diltiazem 24HR ER) 180 MG CAP.ER.24H 1 Capsule ORAL DAILY Qty = 30 Comments: Last Taken: 02/01/18 Time: 910 Losartan (Cozaar) 100 MG TABLET 1 Tablet ORAL DAILY Comments: Last Taken: 02/01/18 Time: 908 Metoprolol Succ XL (Toprol Xl) 50 MG TAB 1 Tablet ORAL DAILY Comments: Last Taken: 02/01/18 Time: 908 Isosorbide Mononitrate (Isosorbide Mononitrate ER) 120 MG TAB.ER.24H 1 Tablet ORAL DAILY Comments: Last Taken: 02/01/18 Time: 908 Colesevelam HCl (Welchol) 3.75 GRAM POWD.PACK 2 Packet ORAL DAILY Instructions: mix with water, or juice Comments: Last Taken: 02/01/18 Time: 909 Prednisone (Prednisone) 1 MG TABLET 3 Tablet ORAL DAILY Comments: Last Taken: 02/01/18 Time: 909 Folic Acid (Folic Acid) 1 MG TABLET 1 Tablet ORAL DAILY Comments: Last Taken:02/01/18 Time: 908 Ranitidine (Ranitidine HCl) 150 MG TABLET 1 Tablet ORAL TWICE DAILY Comments: NOT GIVEN Sennosides (Senna) 8.6 MG TABLET 2 Tablet ORAL TWICE DAILY Comments: Last Taken: 01/31/18 Time: 2021 Cholecalciferol (Vitamin D3) 1,000 UNIT TABLET 2 Tablet ORAL DAILY Comments: Last Taken: 01/31/18 Time: 2019 Polyethylene Glycol 3350 (Miralax) 17 GRAM POWD.PACK 1 Packet ORAL DAILY Instructions: dissolve in water Comments: Last Taken: 01/31/18 Time: 2021 Docusate Sodium (Stool Softener) 50 MG/5 ML LIQUID 50 Milligram ORAL DAILY Comments: Last Taken: 01/31 Time: 2019 Bisacodyl (Women's Laxative) 5 MG TABLET 2 Tablet ORAL DAILY Comments: Last Taken: 01/31/18 Time: 2020 Levobunolol HCl (Betagan) 0.5 % DROPS 1 DROP In the eye Every Morning Comments: Last Taken: 02/01/18 Time: 910 Latanoprost (Latanoprost) 0.005 % DROPS 1 Drop In the eye Every night Comments: Last Taken: 02/01/18 Time: 2021 Meclizine HCl (Meclizine HCl) 25 MG TABLET 1 Tablet ORAL THREE TIMES A DAY NEEDED Comments: Last Taken: 01/31/18 Time: 2304 Chlorzoxazone (Chlorzoxazone) 500 MG TABLET 0.5 Tablet ORAL THREE TIMES DAILY Comments: NOT GIVEN Nitroglycerin (Nitrostat) 0.4 MG TAB.SUBL 1 Tablet SUBLINGUAL As Directed as needed for ANGINA Instructions: 1st sign of attack; may repeat every 5 minutes until relief; if pain persists after 3 tablets in 15 minutes, prompt medical att Comments: NOT GIVEN Lactulose (Lactulose) 10 GRAM/15 ML SOLUTION 30 Milliliters ORAL TWICE DAILY as needed for CONSTIPATION Comments: NOT GIVEN Methotrexate (Methotrexate) 2.5 MG TABLET 3 Tablet ORAL Once a Week Instructions: Patient takes medication on Friday Comments: NOT GIVEN Linagliptin (Tradjenta) 5 MG TABLET 1 Tablet ORAL DAILY Qty = 90 Comments: NOT GIVEN Start taking the following new medications: Melatonin (Melatonin) 5 MG TABLET 5 Milligram ORAL AT BEDTIME as needed for INSOMNIA Qty = 30 No Refills Instructions: . Comments: Last Taken:01/31/18 Time: 2021 Apixaban (Eliquis) 5 MG TABLET 1 Tablet ORAL TWICE DAILY Qty = 60 No Refills Instructions: . Comments: Last Taken: 02/01/18 Time: 09 Copies To: Aparna FOX,Raul Romo MD Review Statement Documenting Attending: Domingo MD,Kanwardeep S. Other Findings: agree with the above discharge plan.
[2018-01-30 16:00] VITALS: BP 131/76
--- NOTE | 2018-01-30 18:43 | Event Note ---
Event Note Event Note: S:Urology recommended gómez for urinary retention B: Possible overflow incontience A/R: Spoke with urology who recommended follow catheter for her urinary retention. Will irrigate every shift and when necessary for hematuria to prevent clotting. If discharged soon Dr. Bernal recommended that the patient leave with the Gómez and he will see her earlier outpatient.
--- NOTE | 2018-01-30 20:01 | PN- Cardiology ---
Subjective Subjective: No complaints. Maintaining sinus rhythm on monitoring. Objective Vital Signs and I&Os Vital Signs Date Time Temp Pulse Resp B/P B/P Pulse O2 O2 Flow FiO2 Mean Ox Delivery Rate 01/30 1600 95 Room Air 01/30 1600 97.4 79 20 131/76 95 Room Air 01/30 1045 76 168/70 01/30 0800 97.2 64 16 118/60 95 Room Air 01/29 2349 98.4 66 22 128/64 94 Room Air Intake & Output 01/30 1600 01/30 0800 01/30 0000 01/29 1600 01/29 0800 01/29 0000 Intake Total 1060 348.8 944 898 165.8 857 Output Total 600 400 700 750 425 175 Balance 460 -51.2 244 148 -259.2 682 Intake, IV 60 108.8 104 98 135.8 57 Intake, Oral 1000 240 840 800 30 800 Output, Urine 600 400 700 750 425 175 Patient 169 lb 161 lb Weight Weight Bed scale Bed scale Measurement Method Physical Exam: Well-developed, overweight elderly female in no acute distress. Vital signs: See above. HEENT: Normocephalic, atraumatic, EOMI, moist mucous membranes. Neck: No JVD, no bruits. Lungs: Clear to auscultation bilaterally. Heart: S1, S2 with no murmur, gallop, or rub. PMI fifth ICS MCL. Abdomen: Soft, nontender, positive bowel sounds. Extremities: No edema. Current Medications: Current Medications Sig/Lb Start time Last Medication Dose Route Stop Time Status Admin Acetaminophen 1,000 MG Q6P PRN 01/27 2300 AC IV Apixaban 5 MG BID 01/30 2100 AC PO Aspirin 81 MG DAILY 01/28 09 AC 01/30 PO 105 Bisacodyl 10 MG 01/29 AC 01/29 PO 2118 Cholecalciferol 2,000 IU 01/28 AC 01/29 PO 2118 Colesevelam HCl 1,875 MG DAILY 01/28 1300 AC 01/30 PO 105 Cyclobenzaprine HCl 5 MG QPM 01/28 0030 DC 01/29 PO 2118 Diltiazem HCl 180 MG DAILY 01/28 09 AC 01/30 PO 105 Docusate Sodium 50 MG 01/28 AC 01/29 PO 2119 Folic Acid 1 MG DAILY 01/28 09 AC 01/30 PO 1054 Heparin Sodium/ 25,000 UNIT Q24H 01/27 2315 AC 01/30 Dextrose IV 01/30 2200 1828 Dextrose/Water 500 ML Insulin Aspart 0 TIDAC 01/28 1700 AC 01/30 SC 1640 Isosorbide 120 MG DAILY 01/28 09 AC 01/30 Mononitrate PO 1054 Lactulose 30 GM TID PRN 01/27 221 AC PO Latanoprost 1 GTT QPM 01/28 0345 AC 01/29 OPH 2119 Levobunolol HCl 1 GTT QAM 01/28 09 AC 01/30 OPH 1057 Losartan Potassium 100 MG DAILY 01/28 09 AC 01/30 PO 1054 Meclizine HCl 25 MG TID PRN 01/27 223 AC 01/30 PO 0104 Melatonin 5 MG AT BEDTIME 01/29 2100 AC 01/29 PO 2119 Metoprolol Succinate 50 MG DAILY 01/28 09 AC 01/30 PO 1054 Nitroglycerin 0.4 MG EVERY 5 MIN PRN 01/27 2230 AC SL Pantoprazole Sodium 40 MG BID 01/27 214 AC 01/30 IV 1054 Patient Own 0 SEE ADMIN CRITERIA.. 01/28 2200 AC 01/30 Medication PO 1420 Polyethylene Glycol 17 GM 01/29 AC 01/29 PO 2120 Prednisone 3 MG DAILY 01/28 09 AC 01/30 PO 1054 Senna 187 MG AT BEDTIME 01/30 2100 AC PO Senna/Docusate Sodium 1 TAB BID PRN 01/27 2230 AC PO Results Last 48 Hrs of Labs/Mics: Laboratory Tests 01/30/18 1356: APTT 79 H 01/30/18 1355: Urinalysis LIGHT H, Urine Color PINK H, Urine Clarity CLDY H, Urine pH 6.5, Ur Specific Holley 1.010, Urine Protein TRACE H, Urine Ketones NEG, Urine Nitrite NEG, Urine Bilirubin NEG, Urine Urobilinogen 0.2, Ur Leukocyte Esterase NEG, Ur Microscopic SEDIMENT EXAMINED, Urine RBC 50-75 H, Ur Epithelial Cells RARE, Urine Hemoglobin LARGE H, Urine Glucose NEG 01/30/18 0425: Anion Gap 9, Estimated GFR 59 L, Glucose 130 H, Calcium 8.2 L, Phosphorus 4.3 , Magnesium 1.9, Total Bilirubin 0.3, AST 24, ALT 38, Albumin 2.9 L, Free T4 1.69, Total T3 1.13, TSH &T3 &Free T4 Intrp 1.600, CBC w Diff NO MAN DIFF REQ, RBC 4.05 L, MCV 93.3, MCH 31.6 H, MCHC 33.9, RDW 14.2, MPV 7.2 L, Gran % 61.2 , Lymphocytes % 24.8, Monocytes % 11.2 H, Eosinophils % 2.6, Basophils % 0.2, Absolute Granulocytes 3.9, Absolute Lymphocytes 1.6, Absolute Monocytes 0.7 H, Absolute Eosinophils 0.2, Absolute Basophils 0, Thyroglobulin Antibody < 15, Thyroid Peroxidase Ab 32 01/30/18 0110: APTT 71 H 01/29/18 1555: APTT 51 H 01/29/18 0745: APTT 104 *H 01/29/18 0510: Anion Gap 10, Estimated GFR > 60, Glucose 141 H, Calcium 8.1 L, Phosphorus 3.1 , Magnesium 1.8, Total Bilirubin 0.3, AST 23, ALT 44, Albumin 3.2 L, Folate > 20.0 H, CBC w Diff NO MAN DIFF REQ, RBC 4.32, MCV 94.2, MCH 31.1 H, MCHC 33.0, RDW 14.3, MPV 7.3 L, Gran % 65.2, Lymphocytes % 23.0, Monocytes % 9.2, Eosinophils % 2.1, Basophils % 0.5, Absolute Granulocytes 4.8, Absolute Lymphocytes 1.7, Absolute Monocytes 0.7 H, Absolute Eosinophils 0.2, Absolute Basophils 0 01/29/18 0056: APTT 100 H Recent Imaging Studies: Echocardiogram 01/28/2018: Small left ventricular cavity. Moderate concentric left ventricular hypertrophy. Normal left ventricular ejection fraction visually estimated at 65%. "pseudonormal" filling pattern of the left ventricle for age (stage 2 diastolic dysfunction). Normal right ventricular size and function. Normal atrial size. Mild mitral regurgitation. Mild tricuspid regurgitation. No evidence of pulmonary hypertension. X-ray kidneys/ureters/bladder 01/28/2018: No demonstrable aberrant gas within the abdomen, though evaluation is limited secondary to the exposure level and the patient's extreme body habitus. Assessment/Plan Assessment/Plan [id number] w/ hx of obesity, psoriatic arthritis on MTX/steroids, remote hysterectomy, previous GI bleeding 2/2 duodenal ulcers, fm heavy tobacco use, COPD w/o home O2, HTN, HLD, vasc dz, DM, mild CAD, & HFpEF who presented in AF w/ RVR that converted back to SR ~05:00 a.m. She continues to maintain sinus rhythm. The concern is that she may be having PAF, based on her past history & w/ a high [id number] Score of 7 is at considerable risk for stroke w/ an unadjusted stroke rate of 11.2%/year. Alternatively, she also has a history of GI bleeding secondary to a duodenal ulcer, as well as, previous hematuria. I have received the okay from GI and urology to continue with anticoagulation and will switch to an oral NOAC with close follow-up. Continue telemetry? Not applicable (In ICU.)
[2018-01-30] MEDS ORDERED: ELIQUIS5 M1 PO (21:15)
--- NOTE | 2018-01-30 21:16 | Patient Discharge Instructions ---
Discharge Instructions General Discharge Information Special Instructions: Please follow up with your PCP in 1 week. Please follow up with your washateria attendant Dr. Myers in 1 week. Please follow up with urology (Dr. Bernal) in the next few days. Please follow up with GI in 1-2 weeks. Please watch for severe bleeding and return to the ED for any concerns. Acute Coronary Syndrome Inclusion Criteria At DC or during hospital stay patient has or had the following: ACS DIAGNOSIS No Discharge Core Measures Meds if any: Prescribed or Continued at Discharge Meds if any: NOT Prescribed or Continued at Discharge Congestive Heart Failure Inclusion Criteria At DC or during hospital stay patient has or had the following: CHF DIAGNOSIS No Discharge Core Measures Meds if any: Prescribed or Continued at Discharge Meds if any: NOT Prescribed or Continued at Discharge Cerebrovascular accident Inclusion Criteria At DC or during hospital stay patient has or had the following: CVA/TIA Diagnosis No Discharge Core Measures Meds if any: Prescribed or Continued at Discharge Meds if any: NOT Prescribed or Continued at Discharge Venous thromboembolism Inclusion Criteria VTE Diagnosis No VTE Type NONE VTE Confirmed by (Test) NONE Discharge Core Measures - Per Current guidelines, there needs to be overlap - treatment for the first 5 days of Warfarin therapy. - If discharged on Warfarin prior to 5 days of - overlap therapy, the patient will need to be - assessed for post discharge needs including - *Post discharge parental anticoagulation - *Warfarin and/or parental anticoagulation education - *Follow up date to check INR post discharge At least 5 days overlap therapy as Inpatient No Meds if any: Prescribed or Continued at Discharge Note: Overlap Therapy is Warfarin and Anticoagulant Meds if any: NOT Prescribed or Continued at Discharge
[2018-01-30 22:00] VITALS: BP 160/80
[2018-01-31 07:11] LABS: ABSOLUTE BASOPHIL COUNT 0 /CUMM (0.0-0.2); ABSOLUTE EOSINOPHIL COUNT 0.2 /CUMM (0.0-0.7); ABSOLUTE GRANULOCYTE CT 4.7 /CUMM (1.4-6.5); ABSOLUTE LYMPH COUNT 1.5 /CUMM (1.2-3.4); ABSOLUTE MONOCYTE COUNT 0.6 /CUMM (0.10-0.60); BASOPHIL % 0.5 % (0.0-2.0); EOSINOPHIL % 2.7 % (0-5); GRANULOCYTE % 66.2 % (42.2-75.2); HEMATOCRIT 40.4 % (37-47); MEAN CORPUSCULAR HGB 31.1 PG (27.0-31.0); MEAN CORPUSCULAR HGB CONC 33.5 G/DL (33.0-37.0); MEAN CORPUSCULAR VOLUME 92.7 FL (81.0-99.0); MEAN PLATELET VOLUME 7.5 FL (7.4-10.4); PLATELET COUNT 282 /CUMM (130-400); RED BLOOD CELL CT 4.36 /CUMM (4.20-5.40); WHITE BLOOD CELL COUNT 7.1 /CUMM (4.8-10.8)
[2018-01-31 07:16] LABS: PTT 33 SEC (25-37)
[2018-01-31 08:00] VITALS: BP 140/72
--- NOTE | 2018-01-31 09:17 | PN- Resident CRCU ---
Subjective HPI/CRCU Issues: Patient seen and examined. She is seen sitting upright in her chair at bedside resting comfortably. She appears to be in no acute distress. She reports some mild chroninc lower abdominal pain but otherwise has no complaints. Objective Vital Signs & I&O Last 8 Hrs of Vitals and I&O: Intake & Output 01/31 1600 Intake Total Output Total Balance Patient 76.657 kg Weight Weight Reported by Patient Measurement Method Exam General Appearance: well developed/nourished, no apparent distress, alert, awake Other Physical Findings: General: well developed, obese elderly woman in no acute distress HEENT: NCAT, PERRL, EOMI, anicteric sclera, MMM Neck: Supple, no JVD, trachea midline Cardio: Normal S1/S2 w/o m/g/r; RRR Pulm: Diminished bibasilar airflow Abdomen: Soft, non-tender, non-distended, bowel sounds intact : Gómez catheter in place draining clear yellow urine Neuro: Awake and alert, CN II-XII grossly intact Extremities: Normal pulses, no edema Current Medications: Current Medications Sig/Lb Start time Last Medication Dose Route Stop Time Status Admin Acetaminophen 1,000 MG Q6P PRN 01/27 2300 AC IV Apixaban 5 MG BID 01/30 2100 AC 01/31 PO 0958 Aspirin 81 MG DAILY 01/28 900 AC 01/31 PO 0957 Bisacodyl 10 MG 2100 01/29 2100 AC 01/30 PO 2206 Cholecalciferol 2,000 IU 01/28 AC 01/30 PO 2205 Colesevelam HCl 1,875 MG DAILY 01/28 1300 AC 01/30 PO 1053 Cyclobenzaprine HCl 5 MG QPM 01/28 0030 DC 01/29 PO 2119 Diltiazem HCl 180 MG DAILY 01/28 900 AC 01/31 PO 0958 Docusate Sodium 50 MG 01/28 AC 01/30 PO 2207 Folic Acid 1 MG DAILY 01/28 900 AC 01/31 PO 0958 Heparin Sodium/ 25,000 UNIT Q24H 01/27 2315 DC 01/30 Dextrose IV 01/30 2200 1828 Dextrose/Water 500 ML Insulin Aspart 0 TIDAC 01/28 1700 AC 01/30 SC 1640 Isosorbide 120 MG DAILY 01/28 900 AC 01/31 Mononitrate PO 0957 Lactulose 30 GM TID PRN 01/27 2215 AC PO Latanoprost 1 GTT QPM 01/28 0345 AC 01/30 OPH 2215 Levobunolol HCl 1 GTT QAM 01/28 0900 AC 01/31 OPH 1000 Losartan Potassium 100 MG DAILY 01/28 0900 AC 01/31 PO 0958 Meclizine HCl 25 MG TID PRN 01/27 2230 AC 01/30 PO 0104 Melatonin 5 MG AT BEDTIME 01/29 2100 AC 01/30 PO 2208 Metoprolol Succinate 50 MG DAILY 01/28 09 AC 01/31 PO 0958 Nitroglycerin 0.4 MG EVERY 5 MIN PRN 01/27 223 AC SL Pantoprazole Sodium 40 MG BID 01/28 2148 AC 01/31 IV 0958 Patient Own 0 SEE ADMIN CRITERIA.. 01/28 2200 AC 01/30 Medication PO 2317 Polyethylene Glycol 17 GM 2100 01/29 2100 AC 01/30 PO 2203 Prednisone 3 MG DAILY 01/28 900 AC 01/30 PO 1054 Senna 187 MG AT BEDTIME 01/30 2100 AC 01/30 PO 2205 Senna/Docusate Sodium 1 TAB BID PRN 01/27 2230 AC PO Impression/Plan Impression/Problem List Impression: 88 year old woman with multiple medical problems significant for vaginal prolapse, psoriatic arthritis on methotrexate / prednisone, and atrial fibrillation on eliquis sent in by her PCP for evaluation of tachycardia found to be in atrial fibrillation with rapid ventricular response for which she was admitted for rate Control. She subsequently converted to normal sinus rhythm. Patient reports feeling well and has no new complaints. Her vitals, physical exam, and labs remain unremarkable. Gómez is draining a clear yellow urine. Patient is rate controlled in normal sinus rhythm and no longern requires telemetry monitoring or ICU level of care. Problem List -Atrial Fibrillation with Rapid Ventricular Response, now in normal sinus rhythm -Hematuria with urinary retention s/p gómez placement, now resolved -HFpEF -Coronary artery disease -Hypertension -Hyperlipidemia -COPD -DM -Osteoporosis -Glaucoma -Psoriatic arthritis -Menieres Disease -History of bleeding duodenal ulcer Plan -Discontinue telemetry monitoring, transfer to general medicine floor -Gómez catheter -Accuchecks TIDAC/HS with Novolog SSI -Protonix 40 mg IV BID, convert to oral when able -Continue meds: eliquis, aspirin, dulcolax, vitamin D, welchol, cardizem, colace , folic acid, imdur, lactulose, latanoprost, betagan, cozaar, meclizine, melatonin, metoprolol, nitroglycerin, miralax, prednisone, senna -Follow up cultures & sensitivites -Cardiology following for atrial fibrilation -Urology following for urinary retention / pelvic organ prolapse -Pain control with acetaminophen -Diabetic diet -DVT PPx with eliquis -DNR/DNI -Outpatient cystoscopy Problem List: 1. Rapid atrial fibrillation Pain Ratin Tomorrow's Labs & Rationales: None Plan DVT/Prophylaxis: heparin drip
--- NOTE | 2018-01-31 09:20 | PN- Cardiology ---
Subjective Subjective: The patient is sitting in the bedside chair. No specific complaints. Anxious to go home. Maintaining sinus rhythm. No new cardiac symptoms. Objective Vital Signs and I&Os Vital Signs Date Time Temp Pulse Resp B/P B/P Pulse O2 O2 Flow FiO2 Mean Ox Delivery Rate 01/31 0800 94 Room Air / 0800 97.4 76 16 140/72 94 Room Air / 0000 95 Room Air 01/30 2200 97.0 66 18 160/80 95 Room Air 01/30 1600 95 Room Air 01/30 1600 97.4 79 20 131/76 95 Room Air 01/30 1045 76 168/70 Intake & Output 01/31 1600 01/31 0800 / 0000 01/30 1600 01/30 0800 01/30 0000 Intake Total 409 1060 348.8 944 Output Total 750 1400 600 400 700 Balance -750 -991 460 -51.2 244 Intake, IV 109 60 108.8 104 Intake, Oral 300 1000 240 840 Output, Urine 750 1400 600 400 700 Patient 169 lb Weight Weight Bed scale Measurement Method Physical Exam: General Appearance: well developed/nourished, elderly female, alert, awake, oriented Head: normal HEENT: Normal Neck: supple, JVP normal, carotid upstrokes normal bilaterally, no masses or thyromegaly Respiratory: chest non-tender, clear to auscultation and percussion bilaterally Cardiovascular: regular rate/rhythm, normal S1, S2, no audible murmur Abdomen: normal bowel sounds, soft, non-tender Extremities: normal inspection, no edema Vascular: Pulses are 2+ and equal bilaterally Neurologic: Grossly normal/nonfocal Current Medications: Current Medications Sig/Lb Start time Last Medication Dose Route Stop Time Status Admin Acetaminophen 1,000 MG Q6P PRN 01/27 230 AC IV Apixaban 5 MG BID 01/30 2100 AC 01/30 PO 220 Aspirin 81 MG DAILY 01/28 09 AC 01/30 PO 105 Bisacodyl 10 MG 01/29 AC 01/30 PO 2205 Cholecalciferol 2,000 IU 01/28 AC 01/30 PO 2204 Colesevelam HCl 1,875 MG DAILY 01/28 1300 AC 01/30 PO 105 Cyclobenzaprine HCl 5 MG QPM 01/28 0030 DC 01/29 PO 2118 Diltiazem HCl 180 MG DAILY 01/28 900 AC 01/30 PO 1054 Docusate Sodium 50 MG 01/28 AC 01/30 PO 2207 Folic Acid 1 MG DAILY 01/28 900 AC 01/30 PO 1054 Heparin Sodium/ 25,000 UNIT Q24H 01/27 2315 DC 01/30 Dextrose IV 01/30 2200 1828 Dextrose/Water 500 ML Insulin Aspart 0 TIDAC 01/28 1700 AC 01/30 SC 1640 Isosorbide 120 MG DAILY 01/28 900 AC 01/30 Mononitrate PO 1054 Lactulose 30 GM TID PRN 01/27 221 AC PO Latanoprost 1 GTT QPM 01/28 0345 AC 01/30 OPH 2215 Levobunolol HCl 1 GTT QAM 01/28 900 AC 01/30 OPH 1057 Losartan Potassium 100 MG DAILY 01/28 900 AC 01/30 PO 1054 Meclizine HCl 25 MG TID PRN 01/27 2230 AC 01/30 PO 0104 Melatonin 5 MG AT BEDTIME 01/29 2100 AC 01/30 PO 2208 Metoprolol Succinate 50 MG DAILY 01/28 900 AC 01/30 PO 1054 Nitroglycerin 0.4 MG EVERY 5 MIN PRN 01/27 2230 AC SL Pantoprazole Sodium 40 MG BID 01/28 2148 AC 01/30 IV 2217 Patient Own 0 SEE ADMIN CRITERIA.. 01/28 2200 AC 01/30 Medication PO 2317 Polyethylene Glycol 17 GM 01/29 AC 01/30 PO 2203 Prednisone 3 MG DAILY 01/28 900 AC 01/30 PO 1054 Senna 187 MG AT BEDTIME 01/30 2100 AC 01/30 PO 2205 Senna/Docusate Sodium 1 TAB BID PRN 01/27 2230 AC PO Results Last 48 Hrs of Labs/Mics: Laboratory Tests 01/31/18 06: Anion Gap 8, Estimated GFR 59 L, Glucose 113 H, Calcium 8.5, Phosphorus 4.2, Magnesium 1.7, Total Bilirubin 0.3, AST 27, ALT 40, Albumin 3.2 L, APTT 33, CBC w Diff NO MAN DIFF REQ, RBC 4.36, MCV 92.7, MCH 31.1 H, MCHC 33.5, RDW 14.0, MPV 7.5, Gran % 66.2, Lymphocytes % 21.7, Monocytes % 8.9, Eosinophils % 2.7, Basophils % 0.5, Absolute Granulocytes 4.7, Absolute Lymphocytes 1.5, Absolute Monocytes 0.6, Absolute Eosinophils 0.2, Absolute Basophils 0 01/30/18 1356: APTT 79 H 01/30/18 1355: Urinalysis LIGHT H, Urine Color PINK H, Urine Clarity CLDY H, Urine pH 6.5, Ur Specific [place] 1.010, Urine Protein TRACE H, Urine Ketones NEG, Urine Nitrite NEG, Urine Bilirubin NEG, Urine Urobilinogen 0.2, Ur Leukocyte Esterase NEG, Ur Microscopic SEDIMENT EXAMINED, Urine RBC 50-75 H, Ur Epithelial Cells RARE, Urine Hemoglobin LARGE H, Urine Glucose NEG 01/30/18 0425: Anion Gap 9, Estimated GFR 59 L, Glucose 130 H, Calcium 8.2 L, Phosphorus 4.3 , Magnesium 1.9, Total Bilirubin 0.3, AST 24, ALT 38, Albumin 2.9 L, Free T4 1.69, Total T3 1.13, TSH &T3 &Free T4 Intrp 1.600, CBC w Diff NO MAN DIFF REQ, RBC 4.05 L, MCV 93.3, MCH 31.6 H, MCHC 33.9, RDW 14.2, MPV 7.2 L, Gran % 61.2 , Lymphocytes % 24.8, Monocytes % 11.2 H, Eosinophils % 2.6, Basophils % 0.2, Absolute Granulocytes 3.9, Absolute Lymphocytes 1.6, Absolute Monocytes 0.7 H, Absolute Eosinophils 0.2, Absolute Basophils 0, Thyroglobulin Antibody < 15, Thyroid Peroxidase Ab 32 01/30/18 0110: APTT 71 H 01/29/18 1555: APTT 51 H Assessment/Plan Assessment/Plan Assessment: 1. Paroxysmal atrial fibrillation with rapid ventricular rate 2. History of mild coronary disease 3. History of HFpEF 4. History of peripheral arterial disease 5. COPD 6. Diabetes Recommendations: -Maintain telemetry monitoring for now -Continue current cardiac medications including metoprolol and oral anticoagulation with Eliquis -Echocardiogram noted. -Otherwise continue as per the medical/ICU team.
--- NOTE | 2018-01-31 10:39 | PN- Pulmonary ---
Subjective HPI/Critical Care Issues: Doing well Stable In sinus Gómez cath in Urology eval reviewed Objective Current Medications: Current Medications Sig/Lb Start time Last Medication Dose Route Stop Time Status Admin Acetaminophen 1,000 MG Q6P PRN 01/27 230 AC IV Apixaban 5 MG BID 01/30 2100 AC 01/31 PO 0958 Aspirin 81 MG DAILY 01/28 900 AC 01/31 PO 0957 Bisacodyl 10 MG 01/29 AC 01/30 PO 220 Cholecalciferol 2,000 IU 01/28 AC 01/30 PO 2205 Colesevelam HCl 1,875 MG DAILY 01/28 1300 AC 01/30 PO 1053 Cyclobenzaprine HCl 5 MG QPM 01/28 0030 DC 01/29 PO 211 Diltiazem HCl 180 MG DAILY 01/28 900 AC 01/31 PO 09 Docusate Sodium 50 MG 01/28 AC 01/30 PO 220 Folic Acid 1 MG DAILY 01/28 900 AC 01/31 PO 0958 Heparin Sodium/ 25,000 UNIT Q24H 01/27 231 DC 01/30 Dextrose IV 01/30 220 1828 Dextrose/Water 500 ML Insulin Aspart 0 TIDAC 01/28 1700 AC 01/30 SC 1640 Isosorbide 120 MG DAILY 01/28 09 AC 01/31 Mononitrate PO 0957 Lactulose 30 GM TID PRN 01/27 2215 AC PO Latanoprost 1 GTT QPM 01/28 0345 AC 01/30 OPH 2215 Levobunolol HCl 1 GTT QAM 01/28 09 AC 01/31 OPH 1000 Losartan Potassium 100 MG DAILY 01/28 09 AC 01/31 PO 0958 Meclizine HCl 25 MG TID PRN 01/27 2230 AC 01/30 PO 0104 Melatonin 5 MG AT BEDTIME 01/29 2100 AC 01/30 PO 2208 Metoprolol Succinate 50 MG DAILY 01/28 09 AC 01/31 PO 09 Nitroglycerin 0.4 MG EVERY 5 MIN PRN 01/27 2230 AC SL Pantoprazole Sodium 40 MG BID 01/28 2148 AC 01/31 IV 0958 Patient Own 0 SEE ADMIN CRITERIA.. 01/28 2200 AC 01/30 Medication PO 2317 Polyethylene Glycol 17 GM 01/29 AC 01/30 PO 2203 Prednisone 3 MG DAILY 01/28 0900 AC 01/30 PO 1054 Senna 187 MG AT BEDTIME 01/30 2100 AC 01/30 PO 220 Senna/Docusate Sodium 1 TAB BID PRN 01/27 2230 AC PO Vital Signs & I&O Last 24 Hrs of Vitals and I&O: Vital Signs Date Time Temp Pulse Resp B/P B/P Pulse O2 O2 Flow FiO2 Mean Ox Delivery Rate 01/31 0958 75 140/72 / 0958 75 140/72 01/31 0957 75 140/72 / 0800 94 Room Air / 0800 97.4 76 16 140/72 94 Room Air 06/ 0000 95 Room Air 01/30 2200 97.0 66 18 160/80 95 Room Air 01/30 1600 95 Room Air 01/30 1600 97.4 79 20 131/76 95 Room Air / 1045 76 168/70 Intake & Output / 1600 / 0800 01/31 0000 Intake Total 409 Output Total 750 1400 Balance -750 -991 Intake, IV 109 Intake, Oral 300 Output, Urine 750 1400 Patient 169 lb Weight Weight Reported by Patient Measurement Method Impression/Plan Impression/Plan Impression/Plan: General Appearance Alert, Oriented X3, Cooperative, No Acute Distress Skin No Rashes, No Breakdown, No Significant Lesion HEENT Atraumatic, PERRLA, EOMI Cardiovascular tachy, irregularly irregular Lungs exp wheezing Abdomen distended with diffuse tenderness Neurological Normal Speech Extremities No Edema, Normal Pulses, No Tenderness/Swelling Ms. Gonzales is an 88-year-old female with past medical history of glaucoma, psoriatic arthritis, coronary artery disease, hypertension, hyperlipidemia, bladder suspension procedure, osteoporosis, diabetes mellitus, COPD, Mnire's disease, duodenal ulcers, and HFpEF who was sent in by her doctor for tachycardia. Issues include New-onset Patrial fibrillation with increased ventricular response. Patient is stable now in sinus. On anticoag Some hematuria since two days, with urinary retention with post void residue now gómez. Pt has history of vaginal prolapse compounding the issue History of psoriatic arthritis, on methotrexate and low-dose prednisone hence immunosuppressed Previous history of smoking, mild COPD, bladder neck suspension, no evidence of infection Prior history of GI bleed now on anticoagulation Chronic low back pain now stable RECOMMENDATION Continue current rx Out of bed to chair Continue bowel regimen Continue low-dose prednisone Watch blood pressure and she is on multiple medications Can be transferred to the floor - may not need tele or dc pt
[2018-01-31 16:40] VITALS: BP 122/70
[2018-01-31 21:37] VITALS: BP 110/66
[2018-02-01 06:51] VITALS: BP 144/74
[2018-02-01] MEDS ORDERED: MELATONIN5 M7 PO ×2 (12:51→19:23)
[2018-02-01] MEDS ORDERED: ELIQUIS5 M1 PO ×2 (13:10→19:23)
[2018-02-01 14:47] VITALS: BP 138/72
--- NOTE | 2018-02-01 23:51 | PN- Att Addend ---
Attending Addendum Attending Brief Note New onset Afib- converted to NSR. pt being dced home with [facility]) . pt will f/u with cardio as an outpatinet. Urinary outlet osbtruction- pt will be dced on gómez cath and will f/u with urology clinic as an outpatinet. Explained the care plan to patient and pts family at bedside. See dc summary for more details.
--- NOTE | 2018-02-02 11:25 | PN- Housestaff ---
Subjective Follow-up For: New-onset Patrial fibrillation with increased ventricular response Hematuria, urine retention now-Smith Complaints: complianing of weakness Tele-Events Since Last Visit: not applicable Subjective: Patient was complaining of dizziness and generalized weakness Review of Systems Constitutional: Reports: no symptoms, weakness. Objective Last 24 Hrs of Vital Signs/I&O Vital Signs Date Time Temp Pulse Resp B/P B/P Pulse O2 O2 Flow FiO2 Mean Ox Delivery Rate 02/01 1447 98.0 77 20 138/72 95 Room Air Physical Exam General Appearance: Alert, Oriented X3, Cooperative, No Acute Distress Skin: No Rashes, No Breakdown HEENT: Atraumatic, PERRLA, EOMI Cardiovascular: Normal S1, Normal S2 Lungs: Clear to Auscultation, Normal Air Movement Abdomen: Soft, distended Extremities: No Clubbing, No Cyanosis, mild edema Vascular: Normal Pulses, Pulses Symmetrical Current Medications: Current Medications Sig/Lb Start time Last Medication Dose Route Stop Time Status Admin Acetaminophen 1,000 MG Q6P PRN 01/27 2300 DCD IV Apixaban 5 MG BID 01/30 2100 DCD 02/01 PO 0909 Aspirin 81 MG DAILY 01/28 09 DCD 02/01 PO 0909 Bisacodyl 10 MG 01/29 DCD 01/31 PO 2020 Cholecalciferol 2,000 IU 01/28 DCD 01/31 PO 2020 Colesevelam HCl 1,875 MG DAILY 01/28 1300 DCD 02/01 PO 0910 Diltiazem HCl 180 MG DAILY 01/28 09 DCD 02/01 PO 0911 Docusate Sodium 50 MG 01/28 DCD 01/31 PO 2020 Folic Acid 1 MG DAILY 01/28 09 DCD 02/01 PO 0909 Insulin Aspart 0 TIDAC 01/28 1700 DCD 02/01 SC 1208 Isosorbide 120 MG DAILY 01/28 09 DCD 02/01 Mononitrate PO 0909 Lactulose 30 GM TID PRN 01/27 2215 DCD PO Latanoprost 1 GTT QPM 01/28 0345 DCD 01/31 OPH 202 Levobunolol HCl 1 GTT QAM 01/28 09 DCD 02/01 OPH 0911 Losartan Potassium 100 MG DAILY 01/28 09 DCD 02/01 PO 0909 Meclizine HCl 25 MG TID PRN 01/27 2230 DCD 01/31 PO 2305 Melatonin 5 MG AT BEDTIME 01/29 2100 DCD 01/31 PO 2021 Metoprolol Succinate 50 MG DAILY 01/28 900 DCD 02/01 PO 09 Nitroglycerin 0.4 MG EVERY 5 MIN PRN 01/27 2230 DCD SL Pantoprazole Sodium 40 MG BID 01/28 2148 DCD 02/01 IV 0910 Patient Own 0 SEE ADMIN CRITERIA.. 01/28 2200 DCD 01/31 Medication PO 2025 Polyethylene Glycol 17 GM 01/29 DCD 01/31 PO 2021 Prednisone 3 MG DAILY 01/28 900 DCD 02/01 PO 909 Senna 187 MG AT BEDTIME 01/30 2100 DCD 01/31 PO 2021 Senna/Docusate Sodium 1 TAB BID PRN 01/27 2230 DCD PO Assessment/Plan Assessment: Patient is an 88-year-old female with significant past medical history of psoriatic arthritis, coronary artery disease, hypertension, hyperlipidemia, history of bladder suspension procedure, diabetes mellitus, COPD, Mnire's disease, sent by his doctor because of tachycardia and found to be in atrial fibrillation with rapid ventricular response. She was started on Cardizem and anticoagulant followed by hematuria and urinary retention. She is currently on Smith catheter. Vital signs -afebrile, pulse rate 77, respiratory 20, blood pressure 138/72, SPO2 95% on room air. Assessment and plan - * We will discharge the patient today on Smith catheter. We advised her to follow-up with urologist as an outpatient for further evaluation including cystoscopy. * As for pulmonology will continue the patient on low-dose prednisone 3 mg per day. * We discharged the patient on anticoagulation, tablet apixaban 5 mg twice daily. We advised her to follow-up with health coach as an outpatient. * We continued all her medication as before. Problem List: 1. Overflow incontinence 2. Smith catheter in place 3. Hematuria 4. Rapid atrial fibrillation Pain Ratin Pain Location: n/a Pain Goal: Remain pain free Pain Plan: avoid nsaids Tomorrow's Labs & Rationales: n/a
== END 2018-02-01 16:09 | disposition home health service (06) | DRG 309 ==
LOC: ERH 16:35 → ERHI 20:02 → CRI 20:02 → CANRESERV 20:58 → ENRESERV 20:58 → CRI 01-28 00:40 → ENTRNSPT 01-31 15:50 → EDTRNSPTSTS 01-31 16:17 → 2NB 01-31 16:31 → CMPTRNSPT 01-31 16:35 → ENPENDDIS 02-01 13:16 → 2NB 02-01 16:09
PROVIDERS: Internal Medicine; Internal Medicine Pulmonary Disease; Physician Assistant Medical; Preventive Medicine Public Health & General Preventive Medicine; Student in an Organized Health Care Education/Training Program
DX: I48.91 Unspecified atrial fibrillation (principal); I50.32 Chronic diastolic (congestive) heart failure; K55.1 Chronic vascular disorders of intestine; E87.1 Hypo-osmolality and hyponatremia; I11.0 Hypertensive heart disease with heart failure; J44.9 Chronic obstructive pulmonary disease, unspecified; E11.9 Type 2 diabetes mellitus without complications; M81.0 Age-related osteoporosis without current pathological fracture; E87.6 Hypokalemia; H40.9 Unspecified glaucoma; L40.50 Arthropathic psoriasis, unspecified; I25.10 Atherosclerotic heart disease of native coronary artery without angina pectoris; E78.5 Hyperlipidemia, unspecified; H81.09 Meniere's disease, unspecified ear; Z88.0 Allergy status to penicillin; Z88.2 Allergy status to sulfonamides; Z88.8 Allergy status to other drugs, medicaments and biological substances; Z91.041 Radiographic dye allergy status; Z98.51 Tubal ligation status; Z90.710 Acquired absence of both cervix and uterus; M54.9 Dorsalgia, unspecified; R14.0 Abdominal distension (gaseous); Z79.82 Long term (current) use of aspirin; Z79.52 Long term (current) use of systemic steroids; K44.9 Diaphragmatic hernia without obstruction or gangrene; Z66 Do not resuscitate; M06.9 Rheumatoid arthritis, unspecified; E66.9 Obesity, unspecified; Z68.31 Body mass index [BMI] 31.0-31.9, adult; K59.09 Other constipation; R33.9 Retention of urine, unspecified; I73.9 Peripheral vascular disease, unspecified; K26.7 Chronic duodenal ulcer without hemorrhage or perforation; R31.9 Hematuria, unspecified
CPT/HCPCS: 2NBP; CCU; ERO; 36415; 71045; 74018; 74177; 81001; 82436; 86376; 86800; 87086; 93005; 93010; 93306; 96374; 96375; 97116-GO; 97161-GP; 97530-GO; 99291; J1644; J3490; J7060; J8610